=== PATIENT | female | born 1980 | race Caucasian/White ===

== ENCOUNTER 2018-09-24 20:52 | Inpatient (IN) | payer OTHER, SELFPAY | END 2018-09-28 16:40 | disposition home or self-care (01) | DRG 463 | PROVIDERS: Admitting Provider Family Medicine; Emergency Provider Emergency Medicine; Referring Provider Emergency Medicine; Visit Provider Family Medicine | DX: N39.0 Urinary tract infection, site not specified (principal); E10.22 Type 1 diabetes mellitus with diabetic chronic kidney disease; I13.0 Hypertensive heart and chronic kidney disease with heart failure and stage 1 through stage 4 chronic kidney disease, or unspecified chronic kidney disease; I50.9 Heart failure, unspecified; E10.42 Type 1 diabetes mellitus with diabetic polyneuropathy; N18.3 Chronic kidney disease, stage 3 (moderate); E10.51 Type 1 diabetes mellitus with diabetic peripheral angiopathy without gangrene; Z23 Encounter for immunization; Z79.4 Long term (current) use of insulin; M19.90 Unspecified osteoarthritis, unspecified site; I12.9 Hypertensive chronic kidney disease with stage 1 through stage 4 chronic kidney disease, or unspecified chronic kidney disease; I25.2 Old myocardial infarction; F41.9 Anxiety disorder, unspecified; F32.9 Major depressive disorder, single episode, unspecified; E28.2 Polycystic ovarian syndrome; Z89.422 Acquired absence of other left toe(s); Z79.82 Long term (current) use of aspirin; Z79.02 Long term (current) use of antithrombotics/antiplatelets; D50.9 Iron deficiency anemia, unspecified; E78.5 Hyperlipidemia, unspecified; I25.10 Atherosclerotic heart disease of native coronary artery without angina pectoris; K21.9 Gastro-esophageal reflux disease without esophagitis; G25.81 Restless legs syndrome; M54.41 Lumbago with sciatica, right side; M54.42 Lumbago with sciatica, left side; R12 Heartburn; L05.92 Pilonidal sinus without abscess; B96.20 Unspecified Escherichia coli [E. coli] as the cause of diseases classified elsewhere | CPT/HCPCS: 36415; 36430; 36569; 74176; 80048; 80053; 81001; 81025; 83036; 83540; 83550; 83690; 85025; 85027; 86850; 86900; 86901; 86920; 87077; 87081; 87086; 87088; 87186; 90471; 90686; 96361; 96365; 96374; 96375; 96376; 99285; A9270; C1751; G0008; G0378; G0379; J0696; J1815; J1885; J2270; J2405; J2550; J3010; J7030; J7050; P9016 ==

== ENCOUNTER 2019-08-18 16:39 | Inpatient (IN) | payer OTHER, SELFPAY ==
--- NOTE | ~2019-08-18 | US_ITS ---
EXAMINATION: US venous doppler [facility] DATE: 08/19/2019 09:52 INDICATION: Lower limb edema. TECHNIQUE: Grayscale ultrasound images without and with compression and Doppler ultrasound images of the bilateral lower extremity veins were obtained. COMPARISON: None. FINDINGS: The visualized portions of right common femoral vein, profunda (deep) femoral vein, femoral vein, pop liteal vein, peroneal veins, posterior tibial veins, and greater saphenous vein outflow are patent. The visualized portions of left common femoral vein, profunda femoral vein, femoral vein, popliteal v ein, peroneal veins, posterior tibial veins, and greater saphenous vein outflow are patent. IMPRESSION: 1. No deep venous thrombosis. Reviewed, dictated and finalized at location A.
[2019-08-18 17:49] VITALS: BMI 40.3
[2019-08-19] VITALS (17 sets, daily range): BP systolic 97–145; BP diastolic 67–77; PULSE 75–86; RESP 18; TEMP 36.4–36.9; O2SAT 81–100
[2019-08-19] MEDS: AMPICILLIN SODIUM/SULBACTAM 3 GM in SODIUM CHLORIDE 0.9% IV 100 ML IVPB ×4 (01:45→22:51)
[2019-08-19 04:44] LABS: Basophils Absolute Auto 0.1 K/mm3 (0.0-0.1); Basophils Percent Auto 0.9 % (0.2-1.2); Eosinophils Absolute Auto 0.3 K/mm3 (0-0.3); Eosinophils Percent Auto 2.6 % (0-4.4); Hematocrit 32.3 % (37.0-47.0); Immature Granulocyte Absolute 0.02 K/mm3 (0.00-0.031); Immature Granulocyte Percent A 0.2 % (0-0.5); Lymphocytes Absolute Auto 2.98 K/mm3 (0.9-3.2); Lymphocytes Percent Auto 31.3 % (18.3-44.2); Mean Corpuscular Hemoglobin 26.6 pg (26-34); Mean Corpuscular Volume 85.9 fl (80-100); Mean Platelet Volume 10.6 fl (7.4-10.4); Monocytes Absolute Auto 0.8 K/mm3 (0.1-0.6); Monocytes Percent Auto 8.4 % (2.6-8.5); Neutrophils Absolute Auto 5.4 K/mm3 (1.3-6.7); Neutrophils Percent Auto 56.6 % (45.5-73.1); Platelet Count Result 234 k/mm3 (150-375); Red Blood Count 3.76 M/mm3 (4.2-5.4); Red Cell Distribution Width 18.6 % (11.5-14.5); White Blood Count 9.5 K/mm3 (4.5-10.0)
[2019-08-19 04:55] LABS: Blood Urea Nitrogen 29 mg/dL (7-17); Calcium 8.1 mg/dL (8.4-10.2); Carbon Dioxide 24 mmol/L (22-30); Chloride 104 mmol/L (98-107); Estimated CRCL calculation 38 ml/min; Estimated Glomerular Filt Rate 26; Glucose 122 mg/dL (65-105); Potassium 3.8 mmol/L (3.4-5.0); Sodium 137 mmol/L (137-145)
[2019-08-19] MEDS: GABAPENTIN 100 MG CAPSULE 200 MG PO ×3 (06:39→22:58)
[2019-08-19] MEDS: CARVEDILOL 12.5 MG TABLET PO ×2 (08:50→22:59)
[2019-08-19] MEDS: metroNIDAZOLE 250 MG TABLET 500 MG PO ×2 (08:50→22:59)
[2019-08-19] MEDS: ATORVASTATIN 40 MG TABLET PO (08:51)
[2019-08-19] MEDS: ENOXAPARIN 40 MG/0.4 ML SYRINGE SUB-Q (08:51)
[2019-08-19] MEDS: FUROSEMIDE INJ 40 MG/4 ML VIAL IV PUSH ×2 (08:51→22:59)
[2019-08-19] MEDS: FLUOXETINE HCL 20 MG CAP PO ×3 (08:51→17:27)
[2019-08-19] MEDS: FERROUS SULFATE 324 MG TABLET PO (08:51)
[2019-08-19] MEDS: lamoTRIgine 25 MG TABLET PO ×2 (08:51→22:58)
[2019-08-19] MEDS: MORPHINE SULFATE 4 MG/ML INJ IV PUSH ×2 (08:56→17:32)
[2019-08-19 09:22] LABS: Glucose Point of Care 130 (65-105)
[2019-08-19 12:40] LABS: Glucose Point of Care 171 (65-105)
--- NOTE | 2019-08-19 14:56 | PM.IMPN ---
Progress Note: A&P Assessment and Plan (1) Elevated troponin: Code(s): R79.89 - Other specified abnormal findings of blood chemistry Status: Acute Assessment and Plan: Possibly secondary to elevated blood pressures, does not appear to be related to an acute ischemic event. (2) Pneumonia: Code(s): J18.9 - Pneumonia, unspecified organism Status: Acute Assessment and Plan: Patient has a cough and a wheeze chest x-ray shows pneumonia patient has been started on Unasyn and doxycycline (3) Trichomonas vaginalis (TV) infection: Code(s): A59.01 - Trichomonal vulvovaginitis Status: Acute Assessment and Plan: Patient has been treated with Flagyl patient will need to follow up with her OBGYN on discharge, patient had a recent endometrial ablation, under (4) Pelvic inflammatory disease (PID): Code(s): N73.9 - Female pelvic inflammatory disease, unspecified Status: Acute Assessment and Plan: Improved after treatment with Flagyl patient will follow up with her OBGYN and on discharge. Patient has been recently admitted in July for heavy vaginal bleeding and severe anemia, previous D&C patient had endometrial ablation her OBGYN also thought to have pelvic inflammatory disease at that time. (5) Hypertension, uncontrolled: Code(s): I10 - Essential (primary) hypertension Status: Acute Assessment and Plan: Blood pressure is improved for high 140/70. Pt has Iv lasix scheduled. Patient have echocardiogram. Patient is known to have systolic dysfunction with ejection fraction of 50% on a recent echo from 11/2017. Unsure if patient has been compliant to her medications as she has been on well with abdominal discomfort. Patient is on Coreg for congestive heart failure systolic in nature. ProBNP elevated at 6660. Continue to monitor kidney function and proBNP. (6) Dental abscess: Code(s): K04.7 - Periapical abscess without sinus Status: Acute Assessment and Plan: Preferred is on IV Unasyn and doxycycline, patient will need to follow with the dental practice (7) Anxiety and depression: Code(s): F41.9 - Anxiety disorder, unspecified; F32.9 - Major depressive disorder, single episode, unspecified Status: Acute Assessment and Plan: Patient is on fluoxetine Gabapentin lamotrigine, and quetiapine anxiety and depression, and clonazepam p.r.n. (8) Diabetes: Code(s): E11.9 - Type 2 diabetes mellitus without complications Status: Acute Assessment and Plan: Patient is on insulin 3 times a day with meals. Sugars are running around 173 Time Spent With Patient Time: Total time spent is greater than 50% in coordination of care (as documented) at patient's floor/unit and/or counseling patient: Time with patient: 15 - 25 minutes Subjective Interval history: 39-year-old female admitted with abdominal pain. Patient had gone to urgent care, advised to come into the hospital. Patient has been run down for the past 1 week. Complaints of abdominal pain dental abscess and feeling unwell. Patient was found to have a pelvic inflammatory disease infection and Trichomonas also pneumonia and dental abscess. Patient's blood pressures were also running high. Patient states she sees OBGYN Dr. Tello. Patient is also waiting for a dental appointment. She had been unwell fatigued and her sister wanted her to go urgent care. Patient had a recent endometrial ablation under OBGYN. Review of Systems Review of Systems: All systems reviewed & are unremarkable except as noted in HPI and below Constitutional: Constitutional: Reports body ache(s), Reports fatigue, Reports lethargy and Reports weakness Respiratory: Respiratory: Reports cough and Reports wheezing Gastrointestinal: Gastrointestinal: Reports abdominal pain Genitourinary: Genitourinary: Reports vaginal discharge Neurologic: Denies confusion, Denies vertigo, De
[2019-08-19 15:57] LABS: Hematocrit 35.2 % (37.0-47.0); Hemoglobin 10.8 g/dL (12.0-15.0); Mean Corpuscular HGB Conc 30.7 g/dl (32-36); Mean Corpuscular Hemoglobin 25.9 pg (26-34); Mean Corpuscular Volume 84.4 fl (80-100); Mean Platelet Volume 10.4 fl (7.4-10.4); Platelet Count Result 275 k/mm3 (150-375); Red Blood Count 4.17 M/mm3 (4.2-5.4); Red Cell Distribution Width 18.4 % (11.5-14.5)
[2019-08-19 18:04] LABS: Glucose Point of Care 111 (65-105)
[2019-08-19 21:49] LABS: Glucose Point of Care 113 (65-105)
[2019-08-19] MEDS: QUEtiapine FUMARATE 25 MG TABLET PO (23:35)
[2019-08-20] VITALS (8 sets, daily range): BP systolic 130–132; BP diastolic 71–75; PULSE 75–81; RESP 12–16; TEMP 36.4–36.8; O2SAT 96–97
[2019-08-20 05:28] LABS: Blood Urea Nitrogen 38 mg/dL (7-17); Calcium 8.3 mg/dL (8.4-10.2); Carbon Dioxide 26 mmol/L (22-30); Chloride 100 mmol/L (98-107); Estimated CRCL calculation 31 ml/min; Estimated Glomerular Filt Rate 20; Glucose 110 mg/dL (65-105); Potassium 3.7 mmol/L (3.4-5.0); Sodium 135 mmol/L (137-145)
[2019-08-20] MEDS: AMPICILLIN SODIUM/SULBACTAM 3 GM in SODIUM CHLORIDE 0.9% IV 100 ML IVPB (06:50)
[2019-08-20] MEDS: GABAPENTIN 100 MG CAPSULE 200 MG PO (06:54)
[2019-08-20] MEDS: FLUOXETINE HCL 20 MG CAP PO (08:49)
[2019-08-20] MEDS: FUROSEMIDE INJ 40 MG/4 ML VIAL IV PUSH (08:49)
[2019-08-20] MEDS: CARVEDILOL 12.5 MG TABLET PO (08:50)
[2019-08-20] MEDS: lamoTRIgine 25 MG TABLET PO (08:50)
[2019-08-20] MEDS: ATORVASTATIN 40 MG TABLET PO (08:51)
[2019-08-20] MEDS: FERROUS SULFATE 324 MG TABLET PO (08:51)
[2019-08-20] MEDS: ENOXAPARIN 40 MG/0.4 ML SYRINGE SUB-Q (08:51)
[2019-08-20] MEDS: MORPHINE SULFATE 4 MG/ML INJ IV PUSH (08:52)
[2019-08-20 09:00] LABS: Glucose Point of Care 137 (65-105)
[2019-08-20] MEDS: metroNIDAZOLE 250 MG TABLET 500 MG PO (09:35)
--- NOTE | 2019-08-20 09:56 | PM.DS ---
DS: Diagnosis Admitting Diagnosis Admitting Diagnosis: RLL pneumonia, dental abscess, PID Discharge Diagnosis (1) Pneumonia: Code(s): J18.9 - Pneumonia, unspecified organism Status: Acute Assessment and Plan: Much improved with doxy and unazyn iv. (2) Trichomonas vaginalis (TV) infection: Code(s): A59.01 - Trichomonal vulvovaginitis Status: Acute Assessment and Plan: To complete course of metronidazole. (3) Pelvic inflammatory disease (PID): Code(s): N73.9 - Female pelvic inflammatory disease, unspecified Status: Acute Assessment and Plan: Pelvic pain improved. To complete 10 day course of doxycycline and unasyn. 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 (4) Hypertension, uncontrolled: Code(s): I10 - Essential (primary) hypertension Status: Acute Assessment and Plan: Continue carvedilol. (5) Diabetes: Code(s): E11.9 - Type 2 diabetes mellitus without complications Status: Acute Assessment and Plan: Follow healthy diet. (6) Dental abscess: Code(s): K04.7 - Periapical abscess without sinus Status: Acute Assessment and Plan: complete Augmentin and see dentist. (7) Cardiomyopathy: Code(s): I42.9 - Cardiomyopathy, unspecified Status: Acute Assessment and Plan: No sign of decompensation. Continue carvedilol and low salt diet. DS: Summary Time Spent with Patient Time attestation: Total time spent providing and/or coordinating discharge services: 40 min Exam Const: General: cooperative Orientation/consciousness: oriented to person, oriented to place and oriented to time HENMT: Ears: external ears normal General nose exam: external nose normal Face and sinus: face symmetric Mouth: Yes oral mucosae normal, Yes lip normal and Yes tongue normal Throat: posterior oropharynx normal Eyes: Alignment and Position: alignment normal and position normal Periorbital: periorbital findings normal Eyelids: eyelids normal Conjunctivae: conjunctivae normal Sclera: sclerae normal Pupils: PERRL EOM: EOM intact bilaterally Neck: Neck: normal visual inspection and no lymphadenopathy Thyroid: thyroid normal Chest: Chest palpation & inspection: normal inspection of the chest Resp: Effort & Inspection: normal respiratory effort and able to speak in complete sentences Auscultation: clear to auscultation bilaterally Cardio: Jugular venous distension: no JVD Rate: regular rate Rhythm: regular rhythm Heart sounds: S1 normal and no murmurs Bruits: no abdominal aortic bruits and no renal bruits Peripheral pulses: dorsalis pedis pulses present GI: Palpation (GI): No abdominal tenderness, No abdominal aortic bruit, No hepatosplenomegaly and No mass Auscultation: normal bowel sounds : General: Yes bladder normal to palpation Bimanual exam- vagina & uterus: bladder normal to palpation Neuro: General: oriented to person, oriented to place, oriented to time, moves all extremities, no focal motor deficits, CN's II-XI intact bilaterally and deep tendon reflexes 2+ bilaterally Cranial nerves: Yes PERRL Speech: normal speech and No speech abnormal Motor exam (neuro): strength 5/5 throughout Psych: Affect: normal affect Attitude: cooperative DS: Data Data Completed and Pending Labs on day of discharge: Labs from last 24 hours 08/20/19 08/20/19 08/19/19 07:59 04:42 21:40 WBC RBC Hgb Hct MCV MCH MCHC RDW Plt Count MPV Sodium 135 L Potassium 3.7 Chloride 100 Carbon Dioxide 26 BUN 38 H Creatinine 2.60 H Estim Creat Clear Calc 31 Estimated GFR 20 L Glucose 110 H POC Capillary Glucose 137 H 113 H Calcium 8.3 L 08/19/19 08/19/19 08/19/19 17:34 15:43 11:59 WBC 12.0 H RBC 4.17 L Hgb 10.8 L Hct 35.2 L MCV 84.4 MCH 25.9 L MCHC 30.7 L RDW 18.4 H Plt Count 275 MPV 10.4 Sodium Potassium Chlori
[2019-08-20 12:34] LABS: Glucose Point of Care 185 (65-105)
== END 2019-08-20 13:00 | disposition home or self-care (01) | DRG 139 ==
PROVIDERS: Internal Medicine; Admitting Provider Internal Medicine; Emergency Provider Emergency Medicine; PCP Family Medicine; Visit Provider Family Medicine
DX: J18.9 Pneumonia, unspecified organism (principal); A59.01 Trichomonal vulvovaginitis; N73.9 Female pelvic inflammatory disease, unspecified; K04.7 Periapical abscess without sinus; I42.9 Cardiomyopathy, unspecified; F41.8 Other specified anxiety disorders; I13.0 Hypertensive heart and chronic kidney disease with heart failure and stage 1 through stage 4 chronic kidney disease, or unspecified chronic kidney disease; E11.22 Type 2 diabetes mellitus with diabetic chronic kidney disease; N18.3 Chronic kidney disease, stage 3 (moderate); I50.22 Chronic systolic (congestive) heart failure; E11.65 Type 2 diabetes mellitus with hyperglycemia; I25.10 Atherosclerotic heart disease of native coronary artery without angina pectoris; I16.1 Hypertensive emergency; Z89.422 Acquired absence of other left toe(s); I25.2 Old myocardial infarction; Z95.5 Presence of coronary angioplasty implant and graft; G47.33 Obstructive sleep apnea (adult) (pediatric); K21.9 Gastro-esophageal reflux disease without esophagitis; M19.90 Unspecified osteoarthritis, unspecified site; Z91.5 Personal history of self-harm; Z98.41 Cataract extraction status, right eye; Z98.42 Cataract extraction status, left eye; E28.2 Polycystic ovarian syndrome; K58.2 Mixed irritable bowel syndrome; G43.909 Migraine, unspecified, not intractable, without status migrainosus; F19.11 Other psychoactive substance abuse, in remission; E11.42 Type 2 diabetes mellitus with diabetic polyneuropathy; E11.51 Type 2 diabetes mellitus with diabetic peripheral angiopathy without gangrene
CPT/HCPCS: 36415; 71046; 74177; 80048; 80053; 81001; 81025; 83690; 83880; 84484; 85025; 85027; 85380; 87070; 87077; 87081; 87490; 87590; 87808; 93005; 93970; 96361; 96365; 96367; 96375; 96376; 99285; A9270; G0365; J0131; J0295; J1650; J1940; J2270; J2405; J7030; Q9967

== ENCOUNTER 2019-11-04 23:51 | Inpatient (IN) | payer OTHER, SELFPAY ==
--- NOTE | ~2019-11-04 | CT_ITS ---
EXAMINATION: CT abdomen pelvis wo con DATE: 11/05/2019 02:38 INDICATION: Mid abdominal pain. Vomiting. TECHNIQUE: Computed tomography (CT) of the abdomen and pelvis was performed without intravenous contr ast. Automated exposure control and iterative reconstruction technique were employed. The dose-length product was 1526.95 mGy-cm. COMPARISON: CT abdomen and pelvis 08/18/2019, pelvis ultrasound 12/13/2017 FINDINGS: The visualized portions of the lung bases demonstrate smooth septal thickening, consistent with mild pulmonary edema. There are small pleural effusions. There is left atrial enlargement of the heart. No pericardial effusion. The liver, gallbladder, spleen, pancreas, adrenal glands, and kidney s are normal. There is no urolithiasis. The appendix is normal. There are no dilated loops of bowel. There is mild wall thickening of the sigmoid colon. There are no pathologically enlarged lymph nodes. A chronic calcified mass in right abdomen is likely old fat necrosis. There is asymmetric enlargemen t of the right ovary. There is no free intraperitoneal fluid. There is moderate thoracic spondylosis and mild lumbar spondylosis. IMPRESSION: 1. Mild wall thickening of the sigmoid colon, which may be colitis. 2. Mild pulmonary edema. 3. Small pleural effusions. 4. Asymmetric enlargement of the right ovary, most likely from a hemorrhagic cyst. Consider pelvis ul trasound. Reviewed, dictated and finalized at location A. K MAINTAINER IMPRESSION: 1. Mild wall thickening of the sigmoid colon, which may be colitis. 2. Mild pulmonary edema. 3. Small pleural effusions. 4. Asymmetric enlargement of the right ovary, most likely from a hemorrhagic cy st. Consider pelvis ultrasound.
--- NOTE | ~2019-11-04 | US_ITS ---
EXAMINATION: US right upper quadrant DATE: 11/07/2019 10:23 INDICATION: Right upper quadrant pain TECHNIQUE: Multiple grayscale and Doppler ultrasound images of the abdomen were obtained. COMPARISON: CT, 11/05/2019 FINDINGS: The head and and body of the pancreas are normal. The pancreatic tail is obscured by bowel gas. The liver is normal with normal echogenicity and echotexture. No surface nodularity. Normal hepa topetal flow in the main portal vein. There is a small amount of stones or sludge in the gallbladder. There is mild thickening of the gallbladder wall. A small amount of pericholecystic fluid is noted. The normal common bile duct measures 4 mm. There was no sonographic Lopes sign. IMPRESSION: 1. Sonographic findings suggestive of cholecystitis. Consider nuclear hepatobiliary scan. Reviewed, dictated and finalized at location A. GER [employer] IMPRESSION: 1. Sonographic findings suggestive of cholecystitis. Consider nuclear hepatobil iary scan.
--- NOTE | ~2019-11-04 | NM_ITS ---
EXAMINATION: NM hepatobiliary w pharm DATE: 11/08/2019 09:53 INDICATION: Abnormal liver function tests, nausea and vomiting. Ultrasound suspicious for cholecystit is. COMPARISON: None. TECHNIQUE: 4.8 mCi Tc-99m mebrofenin (Choletec) was administered intravenously. Scintigraphic images of the abdomen were obtained for one hour. 3 mcg sincalide (Kinevac) was administered by slow intrav enous infusion, and imaging was continued for 30 minutes. Gallbladder ejection fraction was calculate d by the technologist. FINDINGS: There is normal clearance of radiotracer from the blood pool. There is homogeneous tracer uptake by t he liver. Activity progresses initially to the bowel. There is accumulation of activity within the d ecompressed gallbladder beginning 18 minutes following morphine administration. There is diffuse ela yed clearance of hepatic activity with still significant hepatic activity evident at 90 minutes. IMPRESSION: 1. Diffuse delayed hepatic clearance of activity without evident biliary ductal obstruction suggesti ng hepatic dysfunction. 2. Activity seen within the gallbladder following morphine administration which along with the absenc e of evident cholelithiasis or sonographic Lopes's sign, all argues against acute cholecystitis. The pericholecystic fluid versus gallbladder wall thickening is likely related to liver disease with add itional differential including heart disease, renal failure or other generalized edema forming states . Reviewed, dictated and finalized at location A. TING MACHINE OPERATOR IMPRESSION: 1. Diffuse delayed hepatic clearance of activity without evident biliary ducta l obstruction suggesting hepatic dysfunction. 2. Activity seen within the gallbladder following morphine administration which along with the absence of evident cholelithiasis or sonographic Lopes's sign, all argues against acute cholecystitis. The pericholecystic fluid versus gallb ladder wall thickening is likely related to liver disease with additional diffe rential including heart disease, renal failure or other generalized edema formi ng states.
[2019-11-04 23:58] VITALS: BP 182/132; PULSE 99; RESP 20; TEMP 36.8; O2SAT 94
[2019-11-05] VITALS (15 sets, daily range): BP systolic 123–183; BP diastolic 82–109; PULSE 82–114; RESP 16–21; TEMP 35.7–36.8; O2SAT 92–100
--- NOTE | 2019-11-05 00:14 | ECG_ITS ---
Measurements Intervals [place] Rate: 95 P: 77 UT: 175 QRS: -64 QRSD: 130 T: 85 QT: 384 QTc: 484 Interpretive Statements SINUS RHYTHM CANNOT RULE OUT SEPTAL INFARCT, AGE INDETERMINATE LEFT ANTERIOR FASCICULAR BLOCK BORDERLINE ST-T WAVE ABNORMALITY- LATERAL LEADS BASELINE ARTIFACT- I ABNORMAL ECG Electronically Signed On 11-05-2019 8:27:58 SUPERVISOR [employer]LLING [employer]OTING by Xavi Harding D.O.
--- NOTE | 2019-11-05 00:18 | ED.ABDPAIN ---
HPI - Abdominal Pain General Chief Complaint: Abdominal Pain Stated Complaint: ABD NV Time Seen by Provider: 11/05/19 00:18 Source: patient Mode of arrival: EMS Limitations: no limitations History of Present Illness HPI narrative: A 39 y/o female, with a PMHx of gastritis, presents to the ED, via EMS, with c/o diffuse ABD pain today. Pt states that she has been nauseated in the mornings for the past month and normally feels better after she vomits. Pt does not have regular periods due to her PSHx of an ablation. She reports N/V, diarrhea x7, sweats, and chills. Onset (ago): hour(s) Location: diffuse Associated symptoms: nausea, vomiting, diarrhea, chills and other (sweats) Related Data Home Medications Medication Instructions Recorded Confirmed atorvastatin [Lipitor] 40 mg PO DAILY 08/18/19 11/05/19 carvedilol 12.5 mg PO BID 08/18/19 11/05/19 clonazepam 1 mg PO BID PRN 08/18/19 11/05/19 ferrous sulfate 324 mg PO DAILY 08/18/19 11/05/19 fluoxetine 20 mg PO TID 08/18/19 11/05/19 gabapentin 200 mg PO TID 08/18/19 11/05/19 lamotrigine 25 mg PO BID 08/18/19 11/05/19 quetiapine 25 mg PO HS 08/18/19 11/05/19 Allergies Allergy/AdvReac Type Severity Reaction Status Date / Time latex Allergy Mild Unknown Verified 07/21/19 08:51 adhesive tape AdvReac Other Verified 08/18/19 17:46 Review of Systems Review of Systems: All systems reviewed & are unremarkable except as noted in HPI and below Constitutional: Constitutional: Reports chills Comments: Reports: sweats Gastrointestinal: Gastrointestinal: Reports abdominal pain (diffuse), Reports diarrhea (x7), Reports nausea and Reports vomiting PMFSH Past Medical History Medical History (Updated 11/05/19 @ 06:44 by Lisa Christiansen MD) Amputation toe left pinky toe Anemia Broken teeth CAD (coronary artery disease) Cardiomyopathy CHF (congestive heart failure) Depression with anxiety DVT (deep venous thrombosis) Fibroids Foot fracture, left Gastritis GERD (gastroesophageal reflux disease) GI bleed Heart attack x2 History of angina History of blood transfusion HTN (hypertension) Hyperlipidemia IDDM (insulin dependent diabetes mellitus) Migraine MRSA (methicillin resistant staph aureus) culture positive Nearsightedness Osteoarthritis PCOS (polycystic ovarian syndrome) Peripheral neuropathy PID (acute pelvic inflammatory disease) PVD (peripheral vascular disease) Sleep apnea Stage 3 chronic kidney disease UTI (urinary tract infection) Yeast infection Surgical History Surgical History H/O bilateral cataract extraction H/O section H/O dilation and curettage H/O hand surgery left tendon repair H/O tubal ligation History of cardiac cath 2 stents Hx of angioplasty Social History Social History (Updated 11/05/19 @ 00:46 by Isa Whitman) Smoking status: Light tobacco smoker Alcohol intake: never Substance use: current Substance use type: marijuana Gender identity (if verbalized by the patient): Female Spiritual care concerns: No Agree to blood products: Yes Comments PSHx: ablation PCP: Dr. Martinez Course Reevaluation(s) Reevaluation #1: Patient is still in severe pain with nausea. Patient will be admitted for pain control. No definite bacterial infection so no antibiotics. Date: 11/05/19 Time: 03:36 Consultations Consultation #1: I Discussed case with Dr. Garza who agrees to admit for observation. Date: 11/05/19 Time: 03:50 Vital Signs Vital signs: Vital Signs Temperature 98.2 F 11/04/19 23:58 Pulse Rate 99 11/04/19 23:58 Respiratory Rate 11/04/19 23:58 Blood Pressure 182/132 H 11/04/19 23:58 Pulse Oximetry 94 11/04/19 23:58 Temperature 97.3 F L 11/05/19 04:22 Pulse Rate 82 11/05/19 06:17 Respiratory Rate 18 11/05/19 06:17 Blood Pressure 183/109 H 11/05/19 04:22 Pulse Oximetry 97 11/05/19 04:22 MDM - Abdominal Pain Lab
[2019-11-05] MEDS: ONDANSETRON INJ 4 MG/2 ML VIAL IV PUSH ×4 (01:16→13:49)
[2019-11-05] MEDS: SODIUM CHLORIDE 0.9% IV 1,000 ML 999 ML IV CONT (01:16)
[2019-11-05 01:17] LABS: Basophils Absolute Auto 0.2 K/mm3 (0.0-0.1); Basophils Percent Auto 0.7 % (0.2-1.2); Eosinophils Percent Auto 0.2 % (0-4.4); Hematocrit 45.7 % (37.0-47.0); Hemoglobin 14.1 g/dL (12.0-15.0); Immature Granulocyte Percent A 0.5 % (0-0.5); Lymphocytes Absolute Auto 2.28 K/mm3 (0.9-3.2); Lymphocytes Percent Auto 11.1 % (18.3-44.2); Mean Corpuscular HGB Conc 30.9 g/dl (32-36); Mean Corpuscular Hemoglobin 26.4 pg (26-34); Mean Corpuscular Volume 85.4 fl (80-100); Mean Platelet Volume 11.4 fl (7.4-10.4); Monocytes Absolute Auto 0.5 K/mm3 (0.1-0.6); Monocytes Percent Auto 2.6 % (2.6-8.5); Neutrophils Absolute Auto 17.5 K/mm3 (1.3-6.7); Neutrophils Percent Auto 84.9 % (45.5-73.1); Platelet Count Result 314 k/mm3 (150-375); Red Blood Count 5.35 M/mm3 (4.2-5.4); Red Cell Distribution Width 14.9 % (11.5-14.5); White Blood Count 20.6 K/mm3 (4.5-10.0)
[2019-11-05] MEDS: HYDROMORPHONE HCL 1 MG/ML INJ 0.5 MG IV PUSH (01:17)
[2019-11-05 01:27] LABS: INR 0.9; Prothrombin Time 11.6 Seconds (11.1-14.7)
[2019-11-05 01:28] LABS: Partial Thromboplastin Time 25.4 SECONDS (22.3-36.8)
[2019-11-05 01:29] LABS: Alanine Aminotransferase 24 U/L (4-35); Albumin Level 4.7 g/dL (3.5-5.1); Alkaline Phosphatase 176 U/L (38-126); Aspartate Amino Transferase 30 U/L (14-36); Bilirubin,Total 0.8 mg/dL (0.2-1.3); Blood Urea Nitrogen 28 mg/dL (7-17); Calcium 9.6 mg/dL (8.4-10.2); Carbon Dioxide 25 mmol/L (22-30); Chloride 97 mmol/L (98-107); Estimated CRCL calculation 40 ml/min; Estimated Glomerular Filt Rate 27; Glucose 256 mg/dL (65-105); Lipase 47 U/L (23-300); Potassium 3.6 mmol/L (3.4-5.0); Sodium 137 mmol/L (137-145)
[2019-11-05 01:30] LABS: Lactic Acid Reflex 1.8 mmol/L (0.7-2.1)
[2019-11-05 01:32] LABS: Glucose Point of Care 243 (65-105)
[2019-11-05 03:04] LABS: Add Urine Microscopic? YES; Appearance Urine Clear (Clear); Bacteria Urine Trace /hpf; Bilirubin Urine Negative (Negative); Blood Urine 1+ (Negative); Color Urine Straw (Yellow); Glucose Urine UA 3+ mg/dL (Negative); Ketones Urine 1+ mg/dL (Negative); Leukocyte Esterase Ur Negative LEU/UL (Negative); Mucus Urine Rare /lpf; Nitrate Urine Negative (Negative); Protein Urine 3+ mg/dL (Negative); Specific Grav Ur 1.012 (1.001-1.035); Squamous Epithelial Cell Urine Many /hpf (Few); Urobilinogen Urine Negative mg/dL (<2.0); WBC Urine 0-3 /hpf
[2019-11-05] MEDS: HYDROMORPHONE HCL 1 MG/ML INJ IV PUSH ×4 (03:44→20:47)
--- NOTE | 2019-11-05 04:21 | PC.NURSE ---
Patient's O2 saturations dropped to 82%-88% on RA. Patient placed on 3L O2, O2 saturations 96% at this time.
[2019-11-05] MEDS: hydrALAZINE HCL 20 MG/ML VIAL IV PUSH (04:48)
--- NOTE | 2019-11-05 05:49 | PC.NURSE ---
This patient, Michelle Rhoades, was admitted to Medical Room 258-01. Patient/family oriented to hospital policies and general routines including ID bracelet, bed and alarms, visiting hours, pain management, procedures, bathroom and other care routines, personal items, smoking policy, room service/diet, and visiting hours. Valuables list has been completed. Information on how to activate the Rapid Response Team has been discussed. Patient/Family are encouraged to report perceived risks to care and to ask questions if they do not understand what they are told or what they should do. Pt is very anxious, restless and tearfull.
[2019-11-05 10:38] LABS: Basophils Percent Auto 0.3 % (0.2-1.2); Hematocrit 42.3 % (37.0-47.0); Hemoglobin 12.9 g/dL (12.0-15.0); Immature Granulocyte Absolute 0.09 K/mm3 (0.00-0.031); Immature Granulocyte Percent A 0.6 % (0-0.5); Lymphocytes Absolute Auto 1.14 K/mm3 (0.9-3.2); Lymphocytes Percent Auto 7.7 % (18.3-44.2); Mean Corpuscular HGB Conc 30.5 g/dl (32-36); Mean Corpuscular Hemoglobin 26.2 pg (26-34); Mean Platelet Volume 11.4 fl (7.4-10.4); Monocytes Absolute Auto 0.4 K/mm3 (0.1-0.6); Monocytes Percent Auto 2.5 % (2.6-8.5); Neutrophils Absolute Auto 13.2 K/mm3 (1.3-6.7); Neutrophils Percent Auto 88.9 % (45.5-73.1); Platelet Count Result 249 k/mm3 (150-375); Red Blood Count 4.92 M/mm3 (4.2-5.4); Red Cell Distribution Width 14.9 % (11.5-14.5); White Blood Count 14.8 K/mm3 (4.5-10.0)
[2019-11-05 10:51] LABS: Alanine Aminotransferase 20 U/L (4-35); Albumin Level 3.7 g/dL (3.5-5.1); Alkaline Phosphatase 128 U/L (38-126); Aspartate Amino Transferase 29 U/L (14-36); Bilirubin,Total 0.4 mg/dL (0.2-1.3); Blood Urea Nitrogen 29 mg/dL (7-17); Calcium 8.7 mg/dL (8.4-10.2); Carbon Dioxide 23 mmol/L (22-30); Chloride 101 mmol/L (98-107); Estimated CRCL calculation 0 ml/min; Estimated Glomerular Filt Rate 29; Glucose 274 mg/dL (65-105); Magnesium 1.9 mg/dL (1.6-2.3); Potassium 4.6 mmol/L (3.4-5.0); Sodium 137 mmol/L (137-145)
[2019-11-05] MEDS: PROMETHAZINE HCL 25 MG/ML AMPUL 12.5 MG IV PUSH (11:12)
[2019-11-05] MEDS: SODIUM CHLORIDE 0.9% IV 1,000 ML 100 ML IV CONT ×2 (11:19→20:44)
[2019-11-05] MEDS: PANTOPRAZOLE SODIUM IV 40 MG VIAL IV PUSH ×2 (11:42→20:44)
[2019-11-05] MEDS: CLONAZEPAM 0.5 MG TAB 1 MG PO (11:49)
--- NOTE | 2019-11-05 11:53 | PC.NURSE ---
Upon arrival to patients room, she is resting comfortably. Aroused her to administer Protonix IVP. Patient stated her nausea was improved after receiving IVP Phenergan. Asked patient when leaving room if there was anything else I could get her, she stated as soon as I am able to have the IV dilaudid, I want it. However, she appears to be resting comfortably and even stated she would like us to let her rest and not bother her. No apparent distress at this time. Will continue to monitor her.
--- NOTE | 2019-11-05 12:50 | PM.IMHP ---
H&P: HPI History of Present Illness Chief complaint: Intractable abdominal pain, nausea, Narrative: Date of visit 11/05/2019. 1015. chau Rhoades is a 39 year old white female type 2 diabetic with known peripheral vascular and coronary disease admitted with recurrent nausea and vomiting abdominal discomfort. She relates that been nauseated with vomiting in the a.m. for Sineff to 3-4 weeks and usually feel somewhat better afterwards. Last couple days had marked abdominal discomfort which prompted her visit to the emergency room. She states sometimes her emesis has blood tension but denies any melena hematochezia although has had some watery stools last couple days also. Never added history of peptic disease, EGD, or gastroparesis to her knowledge. And no family history of peptic disease. CT in ER showed a looked to be possible colitis but otherwise nonspecific with old adnexal lesion. She does relate that she has not lost any weight over this period of time Review of Systems Review of Systems: Narrative: Constitutional appetite has been good and weight has been stable during the present and and most recent past EYE no double vision or scotoma Mouth normal No wheezing her history of pulmonary disease CV no chest pain or palpitation. 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 therapy and no periods for 4-5 months and denies any vaginal discharge Muscle skeletal the diffuse joint discomfort with arthritis IE osteoarthritis Integument no skin breakdown rashes Neuro psych she has history of bipolar disorder but appears to be well adjusted present time appropriate, no history of seizures The remainder review of systems if not documented here were evaluated found to be negative [facility] Past Medical History Medical History (Updated 11/05/19 @ 13:02 by Orlando Ferris MD) Amputation toe left pinky toe Anemia Broken teeth CAD (coronary artery disease) Cardiomyopathy CHF (congestive heart failure) Depression with anxiety DVT (deep venous thrombosis) Fibroids Foot fracture, left Gastritis GERD (gastroesophageal reflux disease) GI bleed Heart attack x2 History of angina History of blood transfusion HTN (hypertension) Hyperlipidemia IDDM (insulin dependent diabetes mellitus) Migraine MRSA (methicillin resistant staph aureus) culture positive Nearsightedness Osteoarthritis PCOS (polycystic ovarian syndrome) Peripheral neuropathy PID (acute pelvic inflammatory disease) PVD (peripheral vascular disease) Sleep apnea Stage 3 chronic kidney disease UTI (urinary tract infection) Yeast infection Surgical History Surgical History H/O bilateral cataract extraction H/O section H/O dilation and curettage H/O hand surgery left tendon repair H/O tubal ligation History of cardiac cath 2 stents Hx of angioplasty Social History Social History (Updated 11/05/19 @ 00:46 by Isa Whitman) Smoking status: Light tobacco smoker Alcohol intake: never Substance use: current Substance use type: marijuana Gender identity (if verbalized by the patient): Female Spiritual care concerns: No Agree to blood products: Yes Meds Home Medications and Allergies Home Medications Medication Instructions Recorded Confirmed Type atorvastatin [Lipitor] 40 mg PO DAILY 08/18/19 11/05/19 History carvedilol 12.5 mg PO BID 08/18/19 11/05/19 History clonazepam 1 mg PO BID PRN 08/18/19 11/05/19 History ferrous sulfate 324 mg PO DAILY 08/18/19 11/05/19 History fluoxetine 20 mg PO TID 08/18/19 11/05/19 History gabapentin 200 mg PO TID 08/18/19 11/05/19 History lamotrigine 25 mg PO BID 08/18/19 11/05/19 History quetiapine 25 mg PO HS 08/18/19 11/05/19 History amoxicillin-pot clavulanate 1 tablet PO Q12H #16 tablet 08/20/19 11/05/19 Rx doxycycline hyclate 100 mg PO BID #12 tablet 08/20/19 11/05/19 Rx
[2019-11-05] MEDS: FLUOXETINE HCL 20 MG CAP PO ×2 (13:46→16:33)
--- NOTE | 2019-11-05 14:17 | PC.NURSE ---
Patient oxygen saturation 73% on RA. She had just received Dilaudid 1mg IVP and was currently sleeping. Applied oxygen at 3L NC and patient increased sats to 87%. Then increased oxygen to 4L NC and saturation improved to 93%. Will continue to monitor. She normally wears CPAP at night. Will notify Dr. Ferris.
[2019-11-05] MEDS: carvediloL 12.5 MG TABLET PO (16:33)
[2019-11-05] MEDS: lamoTRIgine 25 MG TABLET PO (16:33)
[2019-11-05] MEDS: QUEtiapine FUMARATE 25 MG TABLET PO (20:44)
[2019-11-06] VITALS (9 sets, daily range): BP systolic 118–142; BP diastolic 54–91; PULSE 51–99; RESP 16–18; TEMP 36.2–36.6; O2SAT 90–99
[2019-11-06] MEDS: ONDANSETRON INJ 4 MG/2 ML VIAL IV PUSH ×3 (02:24→13:23)
[2019-11-06] MEDS: HYDROMORPHONE HCL 1 MG/ML INJ IV PUSH ×2 (02:28→08:45)
[2019-11-06 06:05] LABS: Basophils Percent Auto 0.2 % (0.2-1.2); Eosinophils Percent Auto 0.1 % (0-4.4); Hematocrit 38.2 % (37.0-47.0); Hemoglobin 11.4 g/dL (12.0-15.0); Immature Granulocyte Absolute 0.13 K/mm3 (0.00-0.031); Immature Granulocyte Percent A 0.7 % (0-0.5); Lymphocytes Absolute Auto 1.98 K/mm3 (0.9-3.2); Lymphocytes Percent Auto 10.7 % (18.3-44.2); Mean Corpuscular HGB Conc 29.8 g/dl (32-36); Mean Corpuscular Hemoglobin 26.3 pg (26-34); Mean Platelet Volume 12.1 fl (7.4-10.4); Monocytes Absolute Auto 1.2 K/mm3 (0.1-0.6); Monocytes Percent Auto 6.3 % (2.6-8.5); Neutrophils Absolute Auto 15.2 K/mm3 (1.3-6.7); Platelet Count Result 246 k/mm3 (150-375); Red Blood Count 4.34 M/mm3 (4.2-5.4); Red Cell Distribution Width 15.3 % (11.5-14.5); White Blood Count 18.5 K/mm3 (4.5-10.0)
[2019-11-06 06:21] LABS: Alanine Aminotransferase 18 U/L (4-35); Albumin Level 3.4 g/dL (3.5-5.1); Alkaline Phosphatase 101 U/L (38-126); Aspartate Amino Transferase 53 U/L (14-36); Bilirubin,Total 0.6 mg/dL (0.2-1.3); Blood Urea Nitrogen 34 mg/dL (7-17); Calcium 8.4 mg/dL (8.4-10.2); Carbon Dioxide 24 mmol/L (22-30); Chloride 105 mmol/L (98-107); Estimated CRCL calculation 0 ml/min; Estimated Glomerular Filt Rate 23; Glucose 175 mg/dL (65-105); Potassium 4.3 mmol/L (3.4-5.0); Sodium 138 mmol/L (137-145)
[2019-11-06 07:43] LABS: Hypochromasia 1+ (NORMAL); Platelet Estimate Adequate (Adequate)
[2019-11-06 08:29] LABS: Glucose Point of Care 163 (65-105)
[2019-11-06] MEDS: SODIUM CHLORIDE 0.9% IV 1,000 ML 100 ML IV CONT (08:45)
[2019-11-06] MEDS: ATORVASTATIN 40 MG TABLET PO (09:11)
[2019-11-06] MEDS: carvediloL 12.5 MG TABLET PO ×2 (09:11→17:24)
[2019-11-06] MEDS: FLUOXETINE HCL 20 MG CAP PO ×3 (09:11→17:24)
[2019-11-06] MEDS: CLOPIDOGREL BISULFATE 75 MG TABLET PO (09:11)
[2019-11-06] MEDS: ASPIRIN 81 MG ENTERIC TABLET PO (09:11)
[2019-11-06] MEDS: PANTOPRAZOLE SODIUM IV 40 MG VIAL IV PUSH ×2 (09:12→21:09)
[2019-11-06] MEDS: lamoTRIgine 25 MG TABLET PO ×2 (09:12→17:24)
[2019-11-06] MEDS: PROCHLORPERAZINE EDISYLATE 10 MG/2 ML VIAL IV PUSH ×2 (10:03→17:22)
[2019-11-06 11:38] LABS: Glucose Point of Care 191 (65-105)
--- NOTE | 2019-11-06 11:50 | PM.IMPN ---
Progress Note: A&P Assessment and Plan (1) Gastroenteritis: Code(s): K52.9 - Noninfective gastroenteritis and colitis, unspecified Status: Acute Assessment and Plan: Could be simple gastroenteritis, but with her 3-4 week history could be peptic disease, gastric outlet obstruction, or even gastroparesis. After hydration and PPI, she is still nauseated with vomiting so will proceed with GI of bowel and possible EGD . (2) Diabetes: Code(s): E11.9 - Type 2 diabetes mellitus without complications Status: Acute Assessment and Plan: Sliding scale. Check an A1c also (3) Arteriosclerotic coronary artery disease: Code(s): I25.10 - Atherosclerotic heart disease of [place] coronary artery without angina pectoris Status: Acute Assessment and Plan: Inactive problem. Continue beta-martin and statin. patient states she takes aspirin and Plavix which are not on her medication list and should be since had been just quite 6 months since her cardiac stent by history so will reorder (4) Chronic renal failure, stage 3 (moderate): Code(s): N18.3 - Chronic kidney disease, stage 3 (moderate) Status: Acute Assessment and Plan: Creatinine 2.3 today. monitor (5) PVD (peripheral vascular disease): Code(s): I73.9 - Peripheral vascular disease, unspecified Status: Acute Assessment and Plan: Not active problem. Continue anti platelets and statins (6) DVT prophylaxis: Code(s): Z29.9 - Encounter for prophylactic measures, unspecified Status: Acute Assessment and Plan: lovenox Subjective Date/time seen: 11/06/19 11:50 Interval history: Date of visit 11/06/19. 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 She continues to have nausea but states that she had a some formed bowel movement today. Wanting to try some liquids though. 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 but the discomfort to started last few days Exam Narrative: Exam Narrative: Blood pressure 142/80 pulse is 96 afebrile Pupils equal reactive to light sclera anicteric Mouth poor dentition stud in tongue Lungs are clear no wheezing or consolidation CV tachy no murmurs or gallops Abdomen is soft bowel sounds are present but still some mild diffuse tenderness Extremities without edema dorsalis pedis posterior tibial 1 to 2+ slightly more prominent on the right and left 5th toe is amputated Neuro alert oriented cranial nerves 2-12 intact no focal neurological deficits Objective Data Vital Signs Vital Signs: Vital Signs - 24 hr 11/05/19 12:00 11/05/19 14:00 11/05/19 16:00 Temperature 36.4 C L Pulse Rate 114 H 110 H 99 Respiratory Rate 20 Blood Pressure 123/82 Pulse Oximetry 92 11/05/19 16:33 11/05/19 20:00 11/05/19 22:00 Temperature 36.2 C L Pulse Rate 103 H 100 102 H Respiratory Rate 16 Blood Pressure 150/85 H Pulse Oximetry 100 11/06/19 00:00 11/06/19 04:00 11/06/19 05:57 Temperature 36.2 C L Pulse Rate 92 97 99 Respiratory Rate 18 Blood Pressure 142/81 H Pulse Oximetry 99 11/06/19 08:00 11/06/19 09:29 11/06/19 09:59 Temperature Pulse Rate 91 Respiratory Rate Blood Pressure Pulse Oximetry 96 90 Intake/Output Intake/Output: Intake & Output 11/03/19 11/04/19 11/05/19 11/06/19 23:59 23:59 23:59 23:59 Intake Total 2120 1000 Output Total 600 750 Balance 1520 250 Meds/Results Medications: Active Medications Generic Name Dose Route Start Last Admin Trade Name Freq PRN Reason Stop Dose Admin Aspirin 81 mg 11/06/19 09:00 11/06/19 09:11 Aspirin Ec PO 81 mg QAM DEJAH Administration Atorvastatin Calcium 40 mg 11/06/19 09:00 11/06/19 09:11 Lipitor PO 40 mg DAILY DEJAH Administration Carvedilol 12.5
[2019-11-06] MEDS: HYDROMORPHONE HCL 1 MG/ML INJ 0.5 MG IV PUSH ×3 (13:25→21:16)
[2019-11-06 17:27] LABS: Glucose Point of Care 271 (65-105)
[2019-11-06] MEDS: INSULIN ASPART (*BKC) 100 UNITS/ML SUB-Q (17:29)
[2019-11-06] MEDS: QUEtiapine FUMARATE 25 MG TABLET PO (21:09)
[2019-11-06] MEDS: ENOXAPARIN 40 MG/0.4 ML SYRINGE SUB-Q (21:09)
[2019-11-06 23:01] LABS: Glucose Point of Care 235 (65-105)
[2019-11-07] VITALS (8 sets, daily range): BP systolic 118–157; BP diastolic 49–98; PULSE 43–95; RESP 19–20; TEMP 35.5–36.6; O2SAT 95–98
[2019-11-07] MEDS: HYDROMORPHONE HCL 1 MG/ML INJ 0.5 MG IV PUSH ×5 (02:05→18:40)
[2019-11-07] MEDS: SODIUM CHLORIDE 0.9% IV 1,000 ML 50 ML IV CONT (02:07)
[2019-11-07 05:46] LABS: Basophils Absolute Auto 0.1 K/mm3 (0.0-0.1); Basophils Percent Auto 0.6 % (0.2-1.2); Eosinophils Absolute Auto 0.1 K/mm3 (0-0.3); Eosinophils Percent Auto 0.4 % (0-4.4); Hemoglobin 11.2 g/dL (12.0-15.0); Immature Granulocyte Absolute 0.09 K/mm3 (0.00-0.031); Immature Granulocyte Percent A 0.6 % (0-0.5); Lymphocytes Absolute Auto 2.99 K/mm3 (0.9-3.2); Lymphocytes Percent Auto 21.1 % (18.3-44.2); Mean Corpuscular HGB Conc 30.3 g/dl (32-36); Mean Corpuscular Hemoglobin 26.5 pg (26-34); Mean Corpuscular Volume 87.5 fl (80-100); Mean Platelet Volume 11.8 fl (7.4-10.4); Monocytes Absolute Auto 1.2 K/mm3 (0.1-0.6); Monocytes Percent Auto 8.3 % (2.6-8.5); Neutrophils Absolute Auto 9.7 K/mm3 (1.3-6.7); Platelet Count Result 196 k/mm3 (150-375); Red Blood Count 4.23 M/mm3 (4.2-5.4); Red Cell Distribution Width 15.3 % (11.5-14.5); White Blood Count 14.1 K/mm3 (4.5-10.0)
[2019-11-07 05:53] LABS: Blood Urea Nitrogen 40 mg/dL (7-17); Calcium 8.7 mg/dL (8.4-10.2); Carbon Dioxide 24 mmol/L (22-30); Chloride 104 mmol/L (98-107); Estimated CRCL calculation 0 ml/min; Estimated Glomerular Filt Rate 20; Glucose 181 mg/dL (65-105); Potassium 4.3 mmol/L (3.4-5.0); Sodium 137 mmol/L (137-145)
[2019-11-07 06:15] LABS: Hemoglobin A1C 7.7 % (<5.7)
[2019-11-07] MEDS: ATORVASTATIN 40 MG TABLET PO (08:36)
[2019-11-07] MEDS: ASPIRIN 81 MG ENTERIC TABLET PO (08:36)
[2019-11-07] MEDS: FLUOXETINE HCL 20 MG CAP PO ×3 (08:37→17:12)
[2019-11-07] MEDS: carvediloL 12.5 MG TABLET PO ×2 (08:37→17:12)
[2019-11-07] MEDS: CLOPIDOGREL BISULFATE 75 MG TABLET PO (08:37)
[2019-11-07] MEDS: lamoTRIgine 25 MG TABLET PO ×2 (08:37→17:13)
[2019-11-07] MEDS: PANTOPRAZOLE SODIUM IV 40 MG VIAL IV PUSH ×2 (08:38→20:25)
[2019-11-07] MEDS: ONDANSETRON INJ 4 MG/2 ML VIAL IV PUSH ×2 (10:35→14:44)
--- NOTE | 2019-11-07 12:23 | PM.IMPN ---
Progress Note: A&P Assessment and Plan (1) Gastroenteritis: Code(s): K52.9 - Noninfective gastroenteritis and colitis, unspecified Status: Acute Assessment and Plan: Could be simple gastroenteritis, but with her 3-4 week history could be peptic disease, gastric outlet obstruction, or even gastroparesis. After hydration and PPI, she is still nauseated with vomiting GI saw and GB sono possible cholecystitis. Biliary scan ordered. Presentation and physical exam not that compatible with cholecystitis but has had persistent leukocytosis so will culture and empirically started on Zosyn pending biliary scan . Pending those results GI will entertain EGD (2) Diabetes: Code(s): E11.9 - Type 2 diabetes mellitus without complications Status: Acute Assessment and Plan: Sliding scale. A1c 7.7 (3) Arteriosclerotic coronary artery disease: Code(s): I25.10 - Atherosclerotic heart disease of [place] coronary artery without angina pectoris Status: Acute Assessment and Plan: Inactive problem. Continue beta-martin and statin. patient states she takes aspirin and Plavix which are not on her medication list and should be since had been just quite 6 months since her cardiac stent by history so reordered (4) Chronic renal failure, stage 3 (moderate): Code(s): N18.3 - Chronic kidney disease, stage 3 (moderate) Status: Acute Assessment and Plan: Creatinine 2.6 today, will increase IV fluids with her vomiting probable prerenal. monitor (5) PVD (peripheral vascular disease): Code(s): I73.9 - Peripheral vascular disease, unspecified Status: Acute Assessment and Plan: Not active problem. Continue anti platelets and statins (6) DVT prophylaxis: Code(s): Z29.9 - Encounter for prophylactic measures, unspecified Status: Acute Assessment and Plan: lovenox Subjective Date/time seen: 11/07/19 12:23 Interval history: Date of visit 11/07/19. 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 She continues to have nausea but states that she had a some formed bowel movement again. Has had early childhood nausea for several weeks but the discomfort to started last few days. US this am revealed possible sludge with probable small stones, probable GB wall thickening and possible pericholecystic fluid. Biliary scan ordered Exam Narrative: Exam Narrative: Blood pressure 124/50 pulse is 66 afebrile Pupils equal reactive to light sclera anicteric Mouth poor dentition stud in tongue Lungs are clear no wheezing or consolidation CV tachy no murmurs or gallops Abdomen is soft bowel sounds are present but still some mild diffuse tenderness, most in epigastric area not localized to RUQ Extremities without edema dorsalis pedis posterior tibial 1 to 2+ slightly more prominent on the right and left 5th toe is amputated Neuro alert oriented cranial nerves 2-12 intact no focal neurological deficits Objective Data Vital Signs Vital Signs: Vital Signs - 24 hr 11/06/19 14:00 11/06/19 17:24 11/06/19 21:47 Temperature 36.6 C 36.2 C L Pulse Rate 51 L 60 54 L Respiratory Rate 16 18 Blood Pressure 133/91 H 118/54 L Pulse Oximetry 99 99 11/07/19 05:53 11/07/19 08:37 Temperature 36.2 C L Pulse Rate 57 L 76 Respiratory Rate 20 Blood Pressure 124/49 L Pulse Oximetry 98 Intake/Output Intake/Output: Intake & Output 11/04/19 11/05/19 11/06/19 11/07/19 23:59 23:59 23:59 23:59 Intake Total 2120 2000 1240 Output Total 600 1050 650 Balance 1520 950 590 Meds/Results Medications: Active Medications Generic Name Dose Route Start Last Admin Trade Name Freq PRN Reason Stop Dose Admin Aspirin 81 mg 11/06/19 09:00 11/07/19 08:36 [facility]in Ec [facility] [place] [facility]
--- NOTE | 2019-11-07 15:13 | CONS_ITS ---
DATE OF CONSULTATION: 11/07/2019 HISTORY OF PRESENT ILLNESS: A 39-year-old female with history of type 2 diabetes with peripheral neuropathy, peripheral vascular disease, chronic kidney disease, coronary artery disease status post MD x2 and stent, cardiomyopathy, CHF, DVT, hypertension, hyperlipidemia, depression, fibroids, migraine headaches, MRSA, GERD with gastritis, history of GI bleed, osteoarthritis, polycystic ovarian syndrome, PID, obstructive sleep apnea, urinary tract infection, yeast infection, bilateral cataract extractions, , D and C, tubal ligation, who presents with nausea and vomiting. I am now asked to provide GI evaluation at the request of the Hospitalist Service. Primary care provider is Dr. Braulio Martinez. The patient states that for the past month she has been having nausea and vomiting that usually occurs in the morning. The day of admission, symptoms increased and persisted throughout the day causing her to come to the hospital. There is no coffee-ground or hematemesis. She has a periumbilical and epigastric discomfort along with this. She had chronic cough, occasionally productive of clear sputum. She typically has constipation with bowel movements every 4-5 days, though this is not a problem lately. In general, she denies heartburn, trouble swallowing, loss of appetite or weight, diarrhea, hematochezia, melena, fever, jaundice, scleral icterus, dark urine, light stools, itching, hot or cold intolerance, chest pain, shortness of breath at rest, hematuria, dysuria, visual changes, easy bruising, tingling of the skin, bone pain, or tremors. No endocarditis risk factors. ALLERGIES: LATEX AND ADHESIVE TAPE. MEDICATIONS: Include: 1. Atorvastatin. 2. Carvedilol. 3. Klonopin. 4. Iron. 5. Fluoxetine. 6. Gabapentin. 7. Lamotrigine. 8. Quetiapine. 9. Augmentin. 10. Doxycycline. 11. Flagyl. SOCIAL HISTORY: Nonsmoker, nondrinker, but does use marijuana daily. FAMILY HISTORY: Negative for GI malignancy. The patient has never had colonoscopy or upper endoscopy. PHYSICAL EXAMINATION: GENERAL: Well-developed, well-nourished obese female, lying in bed, in no apparent distress. She has no lower extremity edema, jaundice, spider angioma, palmar erythema. HEENT: Skull is normocephalic, atraumatic. Pupils nonicteric. Oropharynx clear. NECK: Supple without thyromegaly. LUNGS: Clear to auscultation. HEART: Rate and rhythm regular. S1, S2 normal. ABDOMEN: Normoactive bowel sounds. Soft, nontender, nonrigid, nondistended without hepatosplenomegaly or masses. RECTAL: Deferred. NEURO: Conscious, alert x3. LABORATORY DATA: Labs on November 05, total bilirubin 0.4, alk phos 120, AST 29, ALT is 20. CT scan of the abdomen and pelvis shows some question of wall thickening in the sigmoid colon and a large right ovary. On 11/06, total bilirubin 0.6, alk phos 101, AST 53, ALT is 18, creatinine is 2.6 and today hemoglobin is 11, hematocrit 37, white count of 14. Hemoglobin A1c is 7.7. ASSESSMENT/PLAN: 1. The patient with history of gastroesophageal reflux disease. Continue PPI. 2. Nausea, vomiting, abdominal pain, likely multifactorial. Some of this could be cyclic nausea and vomiting with marijuana use. There is also likely contribution from diabetic gastroparesis and renal insufficiency. With abnormal LFTs, certainly could consider gallbladder disease as well. Need to optimize medical and glycemic control. I have discussed marijuana cessation with the patient and risk of hyperemesis associated with marijuana use. Control symptoms with Reglan. The patient will need upper endoscopy and right upper quadrant ultrasound. 3. The procedure of upper endoscopy, its indications, alternatives of barium studies, an
[2019-11-07 16:11] LABS: Glucose Point of Care 179 (65-105)
[2019-11-07] MEDS: SODIUM CHLORIDE 0.9% IV 1,000 ML 125 ML IV CONT (17:12)
[2019-11-07] MEDS: CLONAZEPAM 0.5 MG TAB 1 MG PO (17:13)
[2019-11-07 17:19] LABS: Glucose Point of Care 256 (65-105)
[2019-11-07] MEDS: INSULIN ASPART (*BKC) 100 UNITS/ML SUB-Q (17:20)
[2019-11-07] MEDS: PROCHLORPERAZINE EDISYLATE 10 MG/2 ML VIAL IV PUSH (17:40)
[2019-11-07] MEDS: QUEtiapine FUMARATE 25 MG TABLET PO (20:26)
[2019-11-07] MEDS: ENOXAPARIN 40 MG/0.4 ML SYRINGE SUB-Q (20:26)
[2019-11-07 20:50] LABS: Glucose Point of Care 195 (65-105)
[2019-11-08] VITALS (13 sets, daily range): BP systolic 117–149; BP diastolic 64–96; PULSE 78–97; RESP 16–25; TEMP 36.2–36.6; O2SAT 89–100
[2019-11-08] MEDS: SODIUM CHLORIDE 0.9% IV 1,000 ML 125 ML IV CONT ×2 (01:12→16:44)
[2019-11-08] MEDS: HYDROMORPHONE HCL 1 MG/ML INJ 0.5 MG IV PUSH ×4 (01:13→21:51)
[2019-11-08 05:35] LABS: Alanine Aminotransferase 32 U/L (4-35); Alkaline Phosphatase 99 U/L (38-126); Aspartate Amino Transferase 200 U/L (14-36); Bilirubin,Total 1.3 mg/dL (0.2-1.3); Blood Urea Nitrogen 41 mg/dL (7-17); Calcium 8.3 mg/dL (8.4-10.2); Carbon Dioxide 20 mmol/L (22-30); Chloride 104 mmol/L (98-107); Estimated CRCL calculation 33 ml/min; Estimated Glomerular Filt Rate 20; Glucose 188 mg/dL (65-105); Potassium 4.1 mmol/L (3.4-5.0); Sodium 134 mmol/L (137-145)
[2019-11-08 05:39] LABS: Basophils Absolute Auto 0.1 K/mm3 (0.0-0.1); Basophils Percent Auto 0.5 % (0.2-1.2); Eosinophils Percent Auto 0.2 % (0-4.4); Hematocrit 34.1 % (37.0-47.0); Hemoglobin 10.5 g/dL (12.0-15.0); Immature Granulocyte Absolute 0.09 K/mm3 (0.00-0.031); Immature Granulocyte Percent A 0.5 % (0-0.5); Lymphocytes Absolute Auto 2.76 K/mm3 (0.9-3.2); Lymphocytes Percent Auto 16.4 % (18.3-44.2); Mean Corpuscular HGB Conc 30.8 g/dl (32-36); Mean Corpuscular Hemoglobin 26.6 pg (26-34); Mean Corpuscular Volume 86.5 fl (80-100); Mean Platelet Volume 12.2 fl (7.4-10.4); Monocytes Absolute Auto 1.5 K/mm3 (0.1-0.6); Monocytes Percent Auto 8.7 % (2.6-8.5); Neutrophils Absolute Auto 12.4 K/mm3 (1.3-6.7); Neutrophils Percent Auto 73.7 % (45.5-73.1); Nucleated Red Blood Cells Perc 0.1 % (0.0-0.2); Platelet Count Result 185 k/mm3 (150-375); Red Blood Count 3.94 M/mm3 (4.2-5.4); Red Cell Distribution Width 15.1 % (11.5-14.5); White Blood Count 16.9 K/mm3 (4.5-10.0)
[2019-11-08] MEDS: MORPHINE SULFATE 2 MG/ML INJ IV PUSH (09:10)
--- NOTE | 2019-11-08 09:40 | PC.NURSE ---
Patient returned from nuclear medicine via stretcher. To go to GI lab for EGD. Report given to Rylie FERNANDEZ. Consent on front of chart.
[2019-11-08] MEDS: INSULIN ASPART (*BKC) 100 UNITS/ML SUB-Q ×2 (09:49→17:48)
[2019-11-08] MEDS: PANTOPRAZOLE SODIUM IV 40 MG VIAL IV PUSH ×2 (09:52→21:22)
[2019-11-08 10:02] LABS: Glucose Point of Care 219 (65-105)
--- NOTE | 2019-11-08 10:04 | PC.NURSE ---
To GI lab via stretcher with GI lab staff.
[2019-11-08] MEDS: LACTATED RINGERS 1,000 ML 150 ML IV CONT (10:45)
[2019-11-08 10:52] LABS: Glucose Point of Care 204 (65-105)
--- NOTE | 2019-11-08 11:05 | WPDANESEPPF ---
Anes - Initial Pre Proc Eval Procedure: Operation Date: 11/08/19 11:00 Proposed Procedures p Esophagogastroduodenoscopy - Reid Mujica MD Date/Time: 11/08/19 11:05 Surgeon: Moo Garza MD Pre Op Diagnosis: Intractable abdominal pain, nausea, Patient Data Age: 39 Gender: F Height: 5 ft 4.8 in Weight: 113 kg Last Vital Signs Temp 97.1 F L 11/08/19 05:48 Pulse 90 11/08/19 05:48 Resp 20 11/08/19 05:48 BP 123/84 11/08/19 05:48 Pulse Ox 90 11/08/19 05:48 Allergies Allergy/AdvReac Type Severity Reaction Status Date / Time latex Allergy Mild Blister Verified 11/08/19 10:27 adhesive tape AdvReac Blister Verified 11/08/19 10:27 Home Medications Medication Instructions Recorded Confirmed Type atorvastatin [Lipitor] 40 mg PO DAILY 08/18/19 11/05/19 History carvedilol 12.5 mg PO BID 08/18/19 11/05/19 History clonazepam 1 mg PO BID PRN 08/18/19 11/05/19 History ferrous sulfate 324 mg PO DAILY 08/18/19 11/05/19 History fluoxetine 20 mg PO TID 08/18/19 11/05/19 History gabapentin 200 mg PO TID 08/18/19 11/05/19 History lamotrigine 25 mg PO BID 08/18/19 11/05/19 History quetiapine 25 mg PO HS 08/18/19 11/05/19 History amoxicillin-pot clavulanate 1 tablet PO Q12H #16 tablet 08/20/19 11/05/19 Rx doxycycline hyclate 100 mg PO BID #12 tablet 08/20/19 11/05/19 Rx metronidazole 500 mg PO Q12H 10 Days #16 tablet 08/20/19 11/05/19 Rx Laboratory Tests 11/07/19 11/07/19 11/07/19 12:09 17:17 20:25 WBC RBC Hgb Hct MCV MCH MCHC RDW Plt Count MPV Immature Gran % (Auto) Neut % (Auto) Lymph % (Auto) [place] % (Auto) Eos % (Auto) Baso % (Auto) Lymph # (Auto) [place] # (Auto) Eos # (Auto) Baso # (Auto) Abs Immat Gran (auto) Absolute Neuts (auto) Absolute Nucleated RBC Nucleated RBC % Sodium Potassium Chloride Carbon Dioxide BUN Creatinine Estim Creat Clear Calc Estimated GFR Glucose POC Capillary Glucose 179 mg/dl H mg/dl 256 mg/dl H mg/dl 195 mg/dl H mg/dl (65-105) (65-105) (65-105) Calcium Total Bilirubin AST ALT Alkaline Phosphatase Total Protein Albumin 11/08/19 11/08/19 11/08/19 04:58 04:58 09:45 WBC 16.9 K/mm3 H K/mm3 (4.5-10.0) RBC 3.94 M/mm3 L M/mm3 (4.2-5.4) Hgb 10.5 g/dL L g/dL (12.0-15.0) Hct 34.1 % L % (37.0-47.0) MCV 86.5 fl fl (80-100) MCH 26.6 pg pg (26-34) MCHC 30.8 g/dl L g/dl (32-36) RDW 15.1 % H % (11.5-14.5) Plt Count 185 k/mm3 k/mm3 (150-375) MPV 12.2 fl H fl (7.4-10.4) Immature Gran % (Auto) 0.5 % % (0-0.5) Neut % (Auto) 73.7 % H % (45.5-73.1) Lymph % (Auto) 16.4 % L % (18.3-44.2) [place] % (Auto) 8.7 % H % (2.6-8.5) Eos % (Auto) 0.2 % % (0-4.4) Baso % (Auto) 0.5 % % (0.2-1.2) Lymph # (Auto) 2.76 K/mm3 K/mm3 (0.9-3.2) [place] # (Auto) 1.5 K/mm3 H K/mm3 (0.1-0.6) Eos # (Auto) 0.0 K/mm3 K/mm3 (0-0.3) Baso # (Auto) 0.1 K/mm3 K/mm3 (0.0-0.1) Abs Immat Gran (auto) 0.09 K/mm3 H K/mm3 (0.00-0.031) Absolute Neuts (auto) 12.4 K/mm3 H K/mm3 (1.3-6.7) Absolute Nucleated RBC 0.0 K/mm3 K/mm3 (0.0-0.012) Nucleated RBC % 0.1 % % (0.0-0.2) Sodium 134 mmol/L L mmol/L (137-145) Potassium 4.1 mmol/L mmol/L (3.4-5.0) Chloride 104 mmol/L mmol/L (98-107) Carbon Dioxide 20 mmol/L L mmol/L
[2019-11-08 11:48] LABS: Glucose Point of Care 190 (65-105)
--- NOTE | 2019-11-08 12:00 | PC.NURSE ---
Received patient back from GI lab via stretcher. Patient settled in bed. Alert and awake. C/o nausea and abdominal pain. No distress noted.
[2019-11-08] MEDS: ONDANSETRON INJ 4 MG/2 ML VIAL IV PUSH ×2 (12:40→17:42)
[2019-11-08] MEDS: ATORVASTATIN 40 MG TABLET PO (12:46)
[2019-11-08] MEDS: ASPIRIN 81 MG ENTERIC TABLET PO (12:46)
[2019-11-08] MEDS: carvediloL 12.5 MG TABLET PO ×2 (12:46→17:43)
[2019-11-08] MEDS: CLOPIDOGREL BISULFATE 75 MG TABLET PO (12:46)
[2019-11-08] MEDS: lamoTRIgine 25 MG TABLET PO ×2 (12:47→17:43)
[2019-11-08] MEDS: FLUOXETINE HCL 20 MG CAP PO ×2 (12:47→17:43)
[2019-11-08 13:06] LABS: Glucose Point of Care 199 (65-105)
--- NOTE | 2019-11-08 14:11 | PM.IMPN ---
Progress Note: A&P Assessment and Plan (1) Gastroenteritis: Code(s): K52.9 - Noninfective gastroenteritis and colitis, unspecified Status: Acute Assessment and Plan: CT abdomen and pelvis consistent with colitis Right upper quadrant ultrasound with some gallbladder edema Liver architecture appears normal on both CT and ultrasound HIDA scan is more consistent with hepatic dysfunction than gallbladder dysfunction Suspect acute colitis Cannot rule out ischemic etiology Motility dysfunction less likely Continue to Zosyn Advanced diet as tolerated (2) Diabetes: Qualifiers: Diabetes mellitus type: type 1 Diabetes mellitus complication status: with kidney complications Diabetes mellitus complication detail: with chronic kidney disease Chronic kidney disease stage: stage 3 (moderate) Qualified Code(s): E10.22 - Type 1 diabetes mellitus with diabetic chronic kidney disease; N18.3 - Chronic kidney disease, stage 3 (moderate) Code(s): E11.9 - Type 2 diabetes mellitus without complications Status: Acute Assessment and Plan: Sliding scale. A1c 7.7 (3) Chronic renal failure, stage 3 (moderate): Code(s): N18.3 - Chronic kidney disease, stage 3 (moderate) Status: Acute Assessment and Plan: 11/08 Creatinine 2.6 today. Continue IVF. F/u lab (4) PVD (peripheral vascular disease): Code(s): I73.9 - Peripheral vascular disease, unspecified Status: Acute Assessment and Plan: Not active problem. Continue anti platelets and statins (5) DVT prophylaxis: Code(s): Z29.9 - Encounter for prophylactic measures, unspecified Status: Acute Assessment and Plan: lovenox (6) Arteriosclerotic coronary artery disease: Code(s): I25.10 - Atherosclerotic heart disease of [place] coronary artery without angina pectoris Status: Acute Assessment and Plan: Inactive problem. Continue beta-martin and statin. 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 She continues to have nausea but states that she had a some formed bowel movement again. 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 Was having nausea vomiting abdominal pain and diarrhea admission. 11/08 nausea but no vomiting or diarrhea. No bleeding. Tolerated full liquids. Review of Systems Review of Systems: All systems reviewed & are unremarkable except as noted in HPI and below Exam Narrative: Exam Narrative: Blood pressure 124/50 pulse is 66 afebrile Pupils equal reactive to light sclera anicteric Mouth poor dentition stud in tongue Lungs are clear no wheezing or consolidation CV tachy no murmurs or gallops Abdomen is soft bowel sounds are present but still some mild diffuse tenderness without rebound or guarding or masses Extremities without edema Neuro alert oriented cranial nerves 2-12 intact no focal neurological deficits Objective Data Vital Signs Vital Signs: Vital Signs - 24 hr 11/07/19 17:12 11/07/19 20:00 11/07/19 21:20 Temperature Pulse Rate 82 82 47 L Respiratory Rate 19 Blood Pressure Pulse Oximetry 95 95 11/07/19 22:00 11/08/19 05:48 11/08/19 11:31 Temperature 96 F L 97.1 F L Pulse Rate 43 L 90 97 Respiratory Rate 20 20 25 H Blood Pressure 118/74 123/84 117/88 Pulse Oximetry 95 90 95 11/08/19 11:41 11/08/19 11:51 11/08/19 12:01 Temperature Pulse Rate 96 96 95 Respiratory Rate 16 21 H 16 Blood Pressure 130/96 H 146/85 H 141/95 H Pulse O
[2019-11-08 17:22] LABS: Glucose Point of Care 225 (65-105)
[2019-11-08] MEDS: ENOXAPARIN 40 MG/0.4 ML SYRINGE SUB-Q (21:22)
[2019-11-08] MEDS: QUEtiapine FUMARATE 25 MG TABLET PO (21:25)
[2019-11-08 21:27] LABS: Glucose Point of Care 229 (65-105)
[2019-11-09] VITALS (7 sets, daily range): BP systolic 102–132; BP diastolic 71–93; PULSE 88–97; RESP 12–18; TEMP 36.1–36.4; O2SAT 94–97
[2019-11-09] MEDS: PROCHLORPERAZINE EDISYLATE 10 MG/2 ML VIAL IV PUSH ×3 (01:50→17:59)
[2019-11-09] MEDS: HYDROMORPHONE HCL 1 MG/ML INJ 0.5 MG IV PUSH ×3 (01:50→12:45)
[2019-11-09 05:46] LABS: Alanine Aminotransferase 30 U/L (4-35); Albumin Level 3.1 g/dL (3.5-5.1); Alkaline Phosphatase 85 U/L (38-126); Aspartate Amino Transferase 93 U/L (14-36); Bilirubin,Total 1.3 mg/dL (0.2-1.3); Blood Urea Nitrogen 42 mg/dL (7-17); Calcium 8.3 mg/dL (8.4-10.2); Carbon Dioxide 18 mmol/L (22-30); Chloride 105 mmol/L (98-107); Estimated CRCL calculation 31 ml/min; Estimated Glomerular Filt Rate 19; Glucose 197 mg/dL (65-105); Potassium 4.2 mmol/L (3.4-5.0); Sodium 133 mmol/L (137-145)
[2019-11-09 05:46] LABS: Basophils Absolute Auto 0.1 K/mm3 (0.0-0.1); Basophils Percent Auto 0.4 % (0.2-1.2); Eosinophils Absolute Auto 0.1 K/mm3 (0-0.3); Eosinophils Percent Auto 0.4 % (0-4.4); Hematocrit 34.6 % (37.0-47.0); Hemoglobin 10.7 g/dL (12.0-15.0); Immature Granulocyte Absolute 0.06 K/mm3 (0.00-0.031); Immature Granulocyte Percent A 0.4 % (0-0.5); Lymphocytes Absolute Auto 3.21 K/mm3 (0.9-3.2); Mean Corpuscular HGB Conc 30.9 g/dl (32-36); Mean Corpuscular Hemoglobin 26.8 pg (26-34); Mean Corpuscular Volume 86.7 fl (80-100); Mean Platelet Volume 12.5 fl (7.4-10.4); Monocytes Absolute Auto 1.3 K/mm3 (0.1-0.6); Monocytes Percent Auto 7.8 % (2.6-8.5); Neutrophils Absolute Auto 11.4 K/mm3 (1.3-6.7); Nucleated Red Blood Cells Absolute Auto 0.1 K/mm3 (0.0-0.012); Nucleated Red Blood Cells Perc 0.4 % (0.0-0.2); Platelet Count Result 186 k/mm3 (150-375); Red Blood Count 3.99 M/mm3 (4.2-5.4); Red Cell Distribution Width 15.6 % (11.5-14.5)
[2019-11-09] MEDS: SODIUM CHLORIDE 0.9% IV 1,000 ML 125 ML IV CONT ×3 (06:11→23:16)
[2019-11-09] MEDS: ONDANSETRON INJ 4 MG/2 ML VIAL IV PUSH ×2 (08:54→16:45)
[2019-11-09] MEDS: CLOPIDOGREL BISULFATE 75 MG TABLET PO (08:57)
[2019-11-09] MEDS: FLUOXETINE HCL 20 MG CAP PO ×3 (08:57→16:44)
[2019-11-09] MEDS: lamoTRIgine 25 MG TABLET PO ×2 (08:57→16:44)
[2019-11-09] MEDS: carvediloL 12.5 MG TABLET PO ×2 (08:57→16:44)
[2019-11-09] MEDS: PANTOPRAZOLE SODIUM IV 40 MG VIAL IV PUSH (08:58)
[2019-11-09] MEDS: ATORVASTATIN 40 MG TABLET PO (08:58)
[2019-11-09] MEDS: ASPIRIN 81 MG ENTERIC TABLET PO (08:58)
--- NOTE | 2019-11-09 09:16 | WPDANESPN ---
Anes - Prog Note Post-Op Date/Time: 11/09/19 09:16 Cardiovascular status: normal Respiratory status: normal Airway patency: baseline Mental status: baseline Post-Op hydration status: normal Vital Signs: Last Vital Signs Temp 97.5 F L 11/09/19 06:13 Pulse 88 11/09/19 08:57 Resp 18 11/09/19 06:13 BP 102/71 11/09/19 06:13 Pulse Ox 96 11/09/19 06:13 I/O: Intake & Output 11/08/19 11/09/19 11/09/19 23:59 07:59 15:59 Intake Total 1790 1250 Output Total 400 400 Balance 1390 850 Laboratory Tests 11/09/19 05:13 11/09/19 05:14 11/08/19 11/08/19 11/08/19 09:45 10:50 11:45 WBC RBC Hgb Hct MCV MCH MCHC RDW Plt Count MPV Immature Gran % (Auto) Neut % (Auto) Lymph % (Auto) [place] % (Auto) Eos % (Auto) Baso % (Auto) Lymph # (Auto) [place] # (Auto) Eos # (Auto) Baso # (Auto) Abs Immat Gran (auto) Absolute Neuts (auto) Absolute Nucleated RBC Nucleated RBC % Sodium Potassium Chloride Carbon Dioxide BUN Creatinine Estim Creat Clear Calc Estimated GFR Glucose POC Capillary Glucose 219 H 204 H 190 H Calcium Total Bilirubin AST ALT Alkaline Phosphatase Total Protein Albumin 11/08/19 11/08/19 11/08/19 12:51 17:00 21:21 WBC RBC Hgb Hct MCV MCH MCHC RDW Plt Count MPV Immature Gran % (Auto) Neut % (Auto) Lymph % (Auto) [place] % (Auto) Eos % (Auto) Baso % (Auto) Lymph # (Auto) [place] # (Auto) Eos # (Auto) Baso # (Auto) Abs Immat Gran (auto) Absolute Neuts (auto) Absolute Nucleated RBC Nucleated RBC % Sodium Potassium Chloride Carbon Dioxide BUN Creatinine Estim Creat Clear Calc Estimated GFR Glucose POC Capillary Glucose 199 H 225 H 229 H Calcium Total Bilirubin AST ALT Alkaline Phosphatase Total Protein Albumin 11/09/19 11/09/19 05:13 05:14 WBC 16.0 H RBC 3.99 L Hgb 10.7 L Hct 34.6 L MCV 86.7 MCH 26.8 MCHC 30.9 L RDW 15.6 H Plt Count 186 MPV 12.5 H Immature Gran % (Auto) 0.4 Neut % (Auto) 71.0 Lymph % (Auto) 20.0 [place] % (Auto) 7.8 Eos % (Auto) 0.4 Baso % (Auto) 0.4 Lymph # (Auto) 3.21 H [place] # (Auto) 1.3 H Eos # (Auto) 0.1 Baso # (Auto) 0.1 Abs Immat Gran (auto) 0.06 H Absolute Neuts (auto) 11.4 H Absolute Nucleated RBC 0.1 H Nucleated RBC % 0.4 H Sodium 133 L Potassium 4.2 Chloride 105 Carbon Dioxide 18 L BUN 42 H Creatinine 2.70 H Estim Creat Clear Calc 31 Estimated GFR 19 L Glucose 197 H POC Capillary Glucose Calcium 8.3 L Total Bilirubin 1.3 AST 93 H ALT 30 Alkaline Phosphatase 85 Total Protein 6.0 L Albumin 3.1 L Microbiology 11/07/19 13:12 Blood Blood Culture - Preliminary 11/07/19 13:12 Blood Blood Culture - Preliminary Post-procedural complaints: none Patient Feedback: Patient satisfied with anesthetic care.
--- NOTE | 2019-11-09 09:55 | WPDGIPROGNO ---
Progress Note: A&P Additional Plan Patient states she feels improvement today. Tolerating more of her diet. She denies diarrhea. She denies abdominal pain. Physical exam reveals her to be alert. Vital signs stable. Lungs are clear. Abdomen is obese. Bowel sounds are present. Abdomen is soft with no localized tenderness. Laboratory work reveals WBC 16. Hemoglobin 10.7. CT scan suggest wall thickening of sigmoid colon. Impression 1. Nausea and vomiting. EGD yesterday was negative. This could be related to marijuana use. With elevated WBC suggest gastroenteritis. 2. Abnormal CT scan. Sigmoid thickening suggesting colitis. Patient has minimal symptoms of this at present. Suggest nonspecific gastroenteritis. Consider elective colonoscopy later particularly if symptoms persist or developed. 3. Elevated serum transaminases. This is nonspecific. Could be related to gastroenteritis. Suggest monitoring labs at this point and follow conservatively for now. Additional testing only if remain elevated. Plan to advance diet. Continue supportive care. Discharge if diet tolerated. Subjective Date/time seen: 11/09/19 09:55 Objective Data Vital Signs Vital Signs: Vital Signs - 24 hr 11/08/19 11:31 11/08/19 11:41 11/08/19 11:51 Temperature Pulse Rate 97 96 96 Respiratory Rate 25 H 16 21 H Blood Pressure 117/88 130/96 H 146/85 H Pulse Oximetry 95 99 100 11/08/19 12:01 11/08/19 12:46 11/08/19 13:08 Temperature Pulse Rate 95 82 Respiratory Rate 16 Blood Pressure 141/95 H Pulse Oximetry 97 100 11/08/19 14:00 11/08/19 14:08 11/08/19 15:34 Temperature Pulse Rate Respiratory Rate 18 Blood Pressure Pulse Oximetry 89 L 89 L 11/08/19 17:43 11/08/19 21:34 11/09/19 01:50 Temperature 36.2 C L Pulse Rate 78 92 Respiratory Rate 18 Blood Pressure 149/64 H Pulse Oximetry 92 97 11/09/19 01:56 11/09/19 06:13 11/09/19 08:57 Temperature 36.4 C L Pulse Rate 97 88 88 Respiratory Rate 12 18 Blood Pressure 102/71 Pulse Oximetry 97 96 Intake/Output Intake/Output: Intake & Output 11/06/19 11/07/19 11/08/19 11/09/19 23:59 23:59 23:59 23:59 Intake Total 2000 3460 3230 1250 Output Total 1050 1300 1000 400 Balance 950 2160 2230 850 Meds/Results Medications: Active Medications Generic Name Dose Route Start Last Admin Trade Name Freq PRN Reason Stop Dose Admin Aspirin 81 mg 11/06/19 09:00 11/09/19 08:58 Aspirin Ec PO 81 mg QAM DEJAH Administration Atorvastatin Calcium 40 mg 11/06/19 09:00 11/09/19 08:58 Lipitor PO 40 mg DAILY DEJAH Administration Carvedilol 12.5 mg 11/05/19 17:00 11/09/19 08:57 Coreg PO 12.5 mg BID DEJAH Administration Clonazepam 1 mg 11/05/19 11:14 11/07/19 17:13 Klonopin Tablet PO 1 mg BID PRN Administration Anxiety Clopidogrel Bisulfate 75 mg 11/06/19 09:00 11/09/19 08:57 Plavix PO 75 mg QAM DEJAH Administration Dextrose 12.5 gm 11/06/19 12:33 Dextrose 50% Syringe IV PUSH PRN PRN Hypoglycemia Protocol Enoxaparin Sodium 40 mg 11/06/19 21:00 11/08/19 21:22 Lovenox SUB-Q 40 mg HS DEJAH Administration Fluoxetine HCl 20 mg 11/05/19 13:00 11/09/19 08:57 Prozac PO 20 mg TID DEJAH Administration Glucagon 1 mg 11/06/19 12:33 Glucagon For Inj IM PRN PRN Hypoglycemia Protocol Glucose 15 gm 11/06/19 12:33 Glutose 15 PO PRN PRN Hypoglycemia Protocol Hydromorphone HCl 0.5 mg 11/06/19 10:38 11/09/19 08:54 Dilaudid Inj IV PUSH 0.5 mg Q4H PRN Administration Pain Rated 7-10 Sodium Chloride 1,000 mls @ 125 mls/hr 11/05/19 11:05 11/09/19 09:00 Normal Saline Iv IV CONT Not Given .Q8H DEJAH Dextrose 1,000 mls @ 100 mls/hr 11/06/19 12:33 Dextrose 5% 1,000 Ml IVPB PRN PRN Hypoglycemia Protocol Piperacillin Sod/Tazobactam Sod 2.25 gm in 50 mls @ 100 mls/hr 11/07/19 18
[2019-11-09 10:15] LABS: Glucose Point of Care 191 (65-105)
--- NOTE | 2019-11-09 13:01 | PM.IMPN ---
Progress Note: A&P Assessment and Plan (1) Gastroenteritis: Code(s): K52.9 - Noninfective gastroenteritis and colitis, unspecified Status: Acute Assessment and Plan: CT abdomen and pelvis consistent with colitis Right upper quadrant ultrasound with some gallbladder edema Liver architecture appears normal on both CT and ultrasound HIDA scan is more consistent with hepatic dysfunction than gallbladder dysfunction Suspect acute colitis Cannot rule out ischemic etiology Motility dysfunction less likely Continue to Zosyn 11/09 added famotidine and prn mylanta Advanced diet as tolerated (2) Diabetes: Qualifiers: Diabetes mellitus type: type 1 Diabetes mellitus complication status: with kidney complications Diabetes mellitus complication detail: with chronic kidney disease Chronic kidney disease stage: stage 3 (moderate) Qualified Code(s): E10.22 - Type 1 diabetes mellitus with diabetic chronic kidney disease; N18.3 - Chronic kidney disease, stage 3 (moderate) Code(s): E11.9 - Type 2 diabetes mellitus without complications Status: Acute Assessment and Plan: Sliding scale. A1c 7.7 (3) Chronic renal failure, stage 3 (moderate): Code(s): N18.3 - Chronic kidney disease, stage 3 (moderate) Status: Acute Assessment and Plan: 11/08 creatinine 2.6 11/09 creatinine 2.7 Continue IVF. F/u lab (4) PVD (peripheral vascular disease): Code(s): I73.9 - Peripheral vascular disease, unspecified Status: Acute Assessment and Plan: Not active problem. Continue anti platelets and statins (5) DVT prophylaxis: Code(s): Z29.9 - Encounter for prophylactic measures, unspecified Status: Acute Assessment and Plan: lovenox (6) Arteriosclerotic coronary artery disease: Code(s): I25.10 - Atherosclerotic heart disease of [place] coronary artery without angina pectoris Status: Acute Assessment and Plan: Inactive problem. Continue beta-martin and statin. patient states she takes aspirin and Plavix which are not on her medication list and should be since had been just quite 6 months since her cardiac stent by history so reordered Subjective Date/time seen: 11/09/19 13:01 Interval history: 39-year-old white female with known coronary disease peripheral vascular disease chronic renal failure stage 3 and longterm diabetes presents to the emergency room with nausea and vomiting and some abdominal discomfort. She continues to have nausea but states that she had a some formed bowel movement again. 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 Was having nausea vomiting abdominal pain and diarrhea admission. 11/08 nausea but no vomiting or diarrhea. No bleeding. Tolerated full liquids. 11/09 c/o belching and heartburn. No emesis. No diarrhea. Review of Systems Review of Systems: All systems reviewed & are unremarkable except as noted in HPI and below Exam Narrative: Exam Narrative: Blood pressure 124/50 pulse is 66 afebrile Pupils equal reactive to light sclera anicteric Mouth poor dentition stud in tongue Lungs are clear no wheezing or consolidation CV tachy no murmurs or gallops Abdomen is soft bowel sounds are present but still some mild diffuse tenderness without rebound or guarding or masses Extremities without edema Neuro alert oriented cranial nerves 2-12 intact no focal neurological deficits Objective Data Vital Signs Vital Signs: Vital Signs - 24 hr 11/08/19 13:08 11/08/19 14:00 11/08/19 14:08 Temperature Pulse Rate Respiratory Rate Blood Pressure Pulse Oximetry 100 89 L 89 L 11/08/19 15:34 11/08/19 17:43 11/08/19 21:34 Temperature 97.2 F L Pulse Rate 78 92 Respiratory Rate 18 18 Blood Pressure 149/64 H Pulse Oximetry 92 11/09/19 01:50 11/09/19 01:56 11/09/19 06:13 Temperature 97.5 F L Pulse Rate
[2019-11-09] MEDS: MENTHOL 10% / METHYL SALICYLATE 15% 57 GM TUBE 1 APPLIC TOPICAL ×2 (14:31→21:41)
[2019-11-09] MEDS: FAMOTIDINE 20 MG TABLET PO ×2 (14:31→21:35)
[2019-11-09 14:39] LABS: Glucose Point of Care 209 (65-105)
[2019-11-09] MEDS: INSULIN ASPART (*BKC) 100 UNITS/ML SUB-Q (14:51)
[2019-11-09 17:38] LABS: Glucose Point of Care 193 (65-105)
[2019-11-09] MEDS: QUEtiapine FUMARATE 25 MG TABLET PO (21:34)
[2019-11-09] MEDS: PANTOPRAZOLE 40 MG TABLET PO (21:35)
[2019-11-09] MEDS: ENOXAPARIN 40 MG/0.4 ML SYRINGE SUB-Q (21:36)
[2019-11-09 21:57] LABS: Glucose Point of Care 204 (65-105)
[2019-11-10] MEDS: ONDANSETRON INJ 4 MG/2 ML VIAL IV PUSH ×2 (03:32→08:14)
[2019-11-10 05:55] LABS: Hematocrit 34.7 % (37.0-47.0); Hemoglobin 10.7 g/dL (12.0-15.0); Mean Corpuscular HGB Conc 30.8 g/dl (32-36); Mean Corpuscular Hemoglobin 26.5 pg (26-34); Mean Corpuscular Volume 85.9 fl (80-100); Mean Platelet Volume 12.2 fl (7.4-10.4); Platelet Count Result 205 k/mm3 (150-375); Red Blood Count 4.04 M/mm3 (4.2-5.4); Red Cell Distribution Width 15.6 % (11.5-14.5); White Blood Count 15.5 K/mm3 (4.5-10.0)
[2019-11-10 06:05] VITALS: BP 131/91; PULSE 81; RESP 16; TEMP 35.6; O2SAT 98
[2019-11-10 06:12] LABS: Alanine Aminotransferase 30 U/L (4-35); Albumin Level 2.7 g/dL (3.5-5.1); Alkaline Phosphatase 84 U/L (38-126); Aspartate Amino Transferase 55 U/L (14-36); Bilirubin,Total 1.4 mg/dL (0.2-1.3); Blood Urea Nitrogen 38 mg/dL (7-17); Calcium 8.2 mg/dL (8.4-10.2); Carbon Dioxide 18 mmol/L (22-30); Chloride 106 mmol/L (98-107); Estimated CRCL calculation 33 ml/min; Estimated Glomerular Filt Rate 20; Glucose 175 mg/dL (65-105); Sodium 136 mmol/L (137-145)
[2019-11-10 08:07] VITALS: PULSE 81
[2019-11-10] MEDS: ATORVASTATIN 40 MG TABLET PO (08:07)
[2019-11-10] MEDS: carvediloL 12.5 MG TABLET PO ×2 (08:07→17:25)
[2019-11-10] MEDS: PANTOPRAZOLE 40 MG TABLET PO ×2 (08:07→20:51)
[2019-11-10] MEDS: FLUOXETINE HCL 20 MG CAP PO ×3 (08:07→17:25)
[2019-11-10] MEDS: CLOPIDOGREL BISULFATE 75 MG TABLET PO (08:08)
[2019-11-10] MEDS: lamoTRIgine 25 MG TABLET PO ×2 (08:08→17:25)
[2019-11-10] MEDS: ASPIRIN 81 MG ENTERIC TABLET PO (08:08)
[2019-11-10] MEDS: FAMOTIDINE 20 MG TABLET PO ×2 (08:08→20:51)
[2019-11-10] MEDS: SODIUM CHLORIDE 0.9% IV 1,000 ML 125 ML IV CONT ×2 (09:07→20:49)
--- NOTE | 2019-11-10 11:41 | PM.IMPN ---
Progress Note: A&P Assessment and Plan (1) Gastroenteritis: Code(s): K52.9 - Noninfective gastroenteritis and colitis, unspecified Status: Acute Assessment and Plan: CT abdomen and pelvis consistent with colitis Right upper quadrant ultrasound with some gallbladder edema Liver architecture appears normal on both CT and ultrasound HIDA scan is more consistent with hepatic dysfunction than gallbladder dysfunction Suspect acute colitis Cannot rule out ischemic etiology Motility dysfunction less likely Continue to Zosyn 11/09 added famotidine and prn mylanta Advanced diet as tolerated, encouraged increased activity (2) Diabetes: Qualifiers: Diabetes mellitus type: type 1 Diabetes mellitus complication status: with kidney complications Diabetes mellitus complication detail: with chronic kidney disease Chronic kidney disease stage: stage 3 (moderate) Qualified Code(s): E10.22 - Type 1 diabetes mellitus with diabetic chronic kidney disease; N18.3 - Chronic kidney disease, stage 3 (moderate) Code(s): E11.9 - Type 2 diabetes mellitus without complications Status: Acute Assessment and Plan: Sliding scale. A1c 7.7 (3) Chronic renal failure, stage 3 (moderate): Code(s): N18.3 - Chronic kidney disease, stage 3 (moderate) Status: Acute Assessment and Plan: 11/08 creatinine 2.6 11/09 creatinine 2.7 11/10 2.6 Continue IVF. F/u lab (4) PVD (peripheral vascular disease): Code(s): I73.9 - Peripheral vascular disease, unspecified Status: Acute Assessment and Plan: Not active problem. Continue anti platelets and statins (5) DVT prophylaxis: Code(s): Z29.9 - Encounter for prophylactic measures, unspecified Status: Acute Assessment and Plan: lovenox (6) Arteriosclerotic coronary artery disease: Code(s): I25.10 - Atherosclerotic heart disease of [place] coronary artery without angina pectoris Status: Acute Assessment and Plan: Inactive problem. Continue beta-martin and statin. 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 She continues to have nausea but states that she had a some formed bowel movement again. 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 Was having nausea vomiting abdominal pain and diarrhea admission. 11/08 nausea but no vomiting or diarrhea. No bleeding. Tolerated full liquids. 11/09 c/o belching and heartburn. No emesis. No diarrhea. 11/10 generalized abd pain after eating. Tolerating soft, bland foods. Review of Systems Review of Systems: All systems reviewed & are unremarkable except as noted in HPI and below Exam Narrative: Exam Narrative: Pupils equal reactive to light sclera anicteric Mouth poor dentition stud in tongue Lungs are clear no wheezing or consolidation CV tachy no murmurs or gallops Abdomen is soft bowel sounds are present but still some mild diffuse tenderness without rebound or guarding or masses Extremities without edema Neuro alert oriented cranial nerves 2-12 intact no focal neurological deficits Objective Data Vital Signs Vital Signs: Vital Signs - 24 hr 11/09/19 14:00 11/09/19 16:44 11/09/19 21:14 Temperature 97.6 F 96.9 F L Pulse Rate 89 89 92 Respiratory Rate 16 18 Blood Pressure 126/88 132/93 H Pulse Oximetry 95 94 11/10/19 06:05 11/10/19 08:07 Temperature 96.0 F L Pulse Rate 81 81 Respiratory Rate 16 Blood Pressure 131/91 H Pulse Oximetry 98 Intake/
[2019-11-10] MEDS: PROCHLORPERAZINE EDISYLATE 10 MG/2 ML VIAL IV PUSH ×2 (11:52→17:22)
--- NOTE | 2019-11-10 13:02 | WPDGIPROGNO ---
Progress Note: A&P Additional Plan Patient reported some difficulty with solid food intake yesterday. Feels much better today. Willing to try more advanced diet. Physical exam. She is alert. Afebrile. Lungs are clear. Abdomen is obese. Soft and nontender. Laboratory WBC 15.5. Hemoglobin 10.7. Impression: 1. gastroenteritis. CT scan suggest mild distal colitis. Patient now has normal bowel movements. Previously was constipated. 2. Obesity. 3. Nausea vomiting. This appears to have resolved. Could be related to her diabetes mellitus. 4. DM Plan is to advance diet slowly. Conservative therapy advised at this point. Subjective Date/time seen: 11/10/19 13:02 Objective Data Vital Signs Vital Signs: Vital Signs - 24 hr 11/09/19 14:00 11/09/19 16:44 11/09/19 21:14 Temperature 36.4 C 36.1 C L Pulse Rate 89 89 92 Respiratory Rate 16 18 Blood Pressure 126/88 132/93 H Pulse Oximetry 95 94 11/10/19 06:05 11/10/19 08:07 Temperature 35.6 C L Pulse Rate 81 81 Respiratory Rate 16 Blood Pressure 131/91 H Pulse Oximetry 98 Intake/Output Intake/Output: Intake & Output 11/07/19 11/08/19 11/09/19 11/10/19 23:59 23:59 23:59 23:59 Intake Total 3460 3230 4520 1650 Output Total 1300 1000 900 900 Balance 2160 2230 3620 750 Meds/Results Medications: Active Medications Generic Name Dose Route Start Last Admin Trade Name Freq PRN Reason Stop Dose Admin Hydrocodone Bitart/Acetaminophen 1 tab 11/09/19 14:47 11/10/19 11:51 [place] 5-325 Mg PO 1 tab Q4H PRN Administration Pain Rated 4-6 Hydrocodone Bitart/Acetaminophen 2 tab 11/09/19 14:47 11/09/19 17:57 [place] 5-325 Mg PO 2 tab Q4H PRN Administration Pain Rated 7-10 Al Hydrox/Mg Hydrox/Simethicone 30 ml 11/09/19 13:00 Mylanta PO Q6H PRN Indigestion Aspirin 81 mg 11/06/19 09:00 11/10/19 08:08 Aspirin Ec PO 81 mg QAM DEJAH Administration Atorvastatin Calcium 40 mg 11/06/19 09:00 11/10/19 08:07 Lipitor PO 40 mg DAILY DEJAH Administration Carvedilol 12.5 mg 11/05/19 17:00 11/10/19 08:07 Coreg PO 12.5 mg BID DEJAH Administration Clonazepam 1 mg 11/05/19 11:14 11/07/19 17:13 Klonopin Tablet PO 1 mg BID PRN Administration Anxiety Clopidogrel Bisulfate 75 mg 11/06/19 09:00 11/10/19 08:08 Plavix PO 75 mg QAM DEJAH Administration Dextrose 12.5 gm 11/06/19 12:33 Dextrose 50% Syringe IV PUSH PRN PRN Hypoglycemia Protocol Enoxaparin Sodium 40 mg 11/06/19 21:00 11/09/19 21:36 Lovenox SUB-Q 40 mg HS EDJAH Administration Famotidine 20 mg 11/09/19 21:00 11/10/19 08:08 Pepcid PO 20 mg Q12HR DEJAH Administration Fluoxetine HCl 20 mg 11/05/19 13:00 11/10/19 08:07 Prozac PO 20 mg TID DEJAH Administration Glucagon 1 mg 11/06/19 12:33 Glucagon For Inj IM PRN PRN Hypoglycemia Protocol Glucose 15 gm 11/06/19 12:33 Glutose 15 PO PRN PRN Hypoglycemia Protocol Sodium Chloride 1,000 mls @ 125 mls/hr 11/05/19 11:05 11/10/19 09:13 Normal Saline Iv IV CONT 0 mls/hr .Q8H DEJAH Infusion Dextrose 1,000 mls @ 100 mls/hr 11/06/19 12:33 Dextrose 5% 1,000 Ml IVPB PRN PRN Hypoglycemia Protocol Piperacillin Sod/Tazobactam Sod 2.25 gm in 50 mls @ 100 mls/hr 11/07/19 18:00 11/10/19 11:46 Zosyn 2.25 Gm/D5w 50 Ml IVPB 100 mls/hr Q6H DEJAH Administration Insulin Aspart 2 - 5 units 11/06/19 17:00 11/10/19 11:30 Novolog SUB-Q Not Given TIDWM DEJAH Protocol Lamotrigine 25 mg 11/05/19 17:00 11/10/19 08:08 Lamictal PO 25 mg BID DEJAH Administration Lidocaine HCl 0.3 ml 01/21/20 10:10 Xylocaine 2% Local Inj INTRADERM ONCE PRN to numb area Menthol/Methyl Salicylate 1 applic 11/09/19 12:55 11/09/19 21:41 [place] Pain Relieving Cream TOPICAL 1 applic QID PRN Administration Muscle/Joint Pain [place]
[2019-11-10] MEDS: INSULIN ASPART (*BKC) 100 UNITS/ML SUB-Q ×2 (13:26→17:51)
[2019-11-10 14:00] VITALS: BP 130/87; PULSE 77; RESP 16; TEMP 36.6; O2SAT 99
[2019-11-10 14:38] LABS: Glucose Point of Care 260 (65-105)
[2019-11-10 17:25] VITALS: PULSE 77
[2019-11-10 17:50] LABS: Glucose Point of Care 202 (65-105)
[2019-11-10] MEDS: MAG HYDROX/AL HYDROX/SIMETH 30 ML UDC PO (17:51)
[2019-11-10] MEDS: MORPHINE SULFATE 2 MG/ML INJ IV PUSH ×2 (18:50→22:46)
[2019-11-10] MEDS: ENOXAPARIN 40 MG/0.4 ML SYRINGE SUB-Q (20:51)
[2019-11-10] MEDS: QUEtiapine FUMARATE 25 MG TABLET PO (20:52)
[2019-11-10 21:10] LABS: Glucose Point of Care 198 (65-105)
[2019-11-10 22:46] VITALS: BP 117/75; PULSE 78; RESP 16; TEMP 35.7; O2SAT 99
--- NOTE | 2019-11-10 23:12 | PC.NURSE ---
all documentation and medication administration on 11/10/2019 from 1930 to 2200 was performed by Alexandria Smith RN
[2019-11-11] MEDS: PROCHLORPERAZINE EDISYLATE 10 MG/2 ML VIAL IV PUSH ×3 (02:53→23:42)
[2019-11-11] MEDS: MORPHINE SULFATE 2 MG/ML INJ IV PUSH (02:55)
[2019-11-11] MEDS: MAG HYDROX/AL HYDROX/SIMETH 30 ML UDC PO ×2 (02:59→19:34)
[2019-11-11 05:46] VITALS: BP 124/88; PULSE 76; RESP 16; TEMP 36.1; O2SAT 99
[2019-11-11] MEDS: SODIUM CHLORIDE 0.9% IV 1,000 ML 125 ML IV CONT (05:49)
[2019-11-11 09:22] LABS: Glucose Point of Care 194 (65-105)
[2019-11-11 09:29] VITALS: PULSE 76
[2019-11-11] MEDS: carvediloL 12.5 MG TABLET PO ×2 (09:29→17:33)
[2019-11-11] MEDS: lamoTRIgine 25 MG TABLET PO ×2 (09:29→17:33)
[2019-11-11] MEDS: ATORVASTATIN 40 MG TABLET PO (09:29)
[2019-11-11] MEDS: ASPIRIN 81 MG ENTERIC TABLET PO (09:29)
[2019-11-11] MEDS: FLUOXETINE HCL 20 MG CAP PO ×3 (09:30→17:33)
[2019-11-11] MEDS: PANTOPRAZOLE 40 MG TABLET PO ×2 (09:30→19:33)
[2019-11-11] MEDS: FAMOTIDINE 20 MG TABLET PO ×2 (09:30→19:33)
[2019-11-11] MEDS: CLOPIDOGREL BISULFATE 75 MG TABLET PO (09:30)
[2019-11-11 09:33] LABS: Hematocrit 37.5 % (37.0-47.0); Hemoglobin 11.7 g/dL (12.0-15.0); Mean Corpuscular HGB Conc 31.2 g/dl (32-36); Mean Corpuscular Hemoglobin 26.8 pg (26-34); Mean Platelet Volume 12.1 fl (7.4-10.4); Platelet Count Result 240 k/mm3 (150-375); Red Blood Count 4.36 M/mm3 (4.2-5.4); Red Cell Distribution Width 16.2 % (11.5-14.5); White Blood Count 15.7 K/mm3 (4.5-10.0)
[2019-11-11 09:53] LABS: Alanine Aminotransferase 33 U/L (4-35); Albumin Level 2.9 g/dL (3.5-5.1); Alkaline Phosphatase 101 U/L (38-126); Aspartate Amino Transferase 45 U/L (14-36); Bilirubin,Total 1.2 mg/dL (0.2-1.3); Blood Urea Nitrogen 35 mg/dL (7-17); Calcium 8.4 mg/dL (8.4-10.2); Carbon Dioxide 17 mmol/L (22-30); Chloride 105 mmol/L (98-107); Estimated CRCL calculation 33 ml/min; Estimated Glomerular Filt Rate 20; Glucose 207 mg/dL (65-105); Potassium 3.8 mmol/L (3.4-5.0); Sodium 134 mmol/L (137-145)
[2019-11-11] MEDS: CLONAZEPAM 0.5 MG TAB 1 MG PO (10:01)
[2019-11-11 10:10] LABS: CRP 11.8 mg/dL (<1.0)
--- NOTE | 2019-11-11 11:50 | WPDGIPROGNO ---
Progress Note: A&P Additional Plan Patient reports she is now tolerating diet. Mild nausea persist however. She denies fever. Bowel habits are more regular. Previously she was constipated. Physical exam reveals her to be alert. She is anicteric. Lungs are clear. Heart is without murmur. Abdominal exam is obese soft nontender with no localized tenderness or masses identified. WBC 15.7, remains elevated. BUN 35, creatinine 2.6. AST 45, previously was quite elevated. ALT 33 remains normal. Bilirubin 1.2. Alk-phos 101. Impression 1. Nausea and vomiting resolving. EGD was unremarkable. 2. S colon wall thickening. Appears to be nonspecific finding on CT scan. Colitis cannot be excluded. But symptoms do not appear to correlate. 3. Obesity. 4. Diabetes mellitus. 5. Azotemia. Renal insufficiency may contribute to her nausea. Likely related diabetes. 6. Elevated LFTs. HIDA scan suggest hepatocellular dysfunction. No evidence for cholecystitis. 7. Leukocytosis. Elevated CRP also noted. Underlying infection cannot be excluded. Patient has been on empiric antibiotics. Exact source of infection unclear. I find it difficult to attribute gastroenteritis to this finding. Plan is to advance diet as tolerated. Continue to monitor leukocytosis. Colonoscopy could be considered as an outpatient if necessary. Consider other sources for infection as well. Subjective Date/time seen: 11/11/19 11:50 Objective Data Vital Signs Vital Signs: Vital Signs - 24 hr 11/10/19 14:00 11/10/19 17:25 11/10/19 22:46 Temperature 36.6 C 35.7 C L Pulse Rate 77 77 78 Respiratory Rate 16 16 Blood Pressure 130/87 117/75 Pulse Oximetry 99 99 11/11/19 05:46 11/11/19 09:29 Temperature 36.1 C L Pulse Rate 76 76 Respiratory Rate 16 Blood Pressure 124/88 Pulse Oximetry 99 Intake/Output Intake/Output: Intake & Output 11/08/19 11/09/19 11/10/19 11/11/19 23:59 23:59 23:59 23:59 Intake Total 3230 4520 3350 1200 Output Total 9359 089 7206 1300 Balance 2230 3620 1999 - Meds/Results Medications: Active Medications Generic Name Dose Route Start Last Admin Trade Name Freq PRN Reason Stop Dose Admin Hydrocodone Bitart/Acetaminophen 1 tab 11/09/19 14:47 11/10/19 11:51 [place] 5-325 Mg PO 1 tab Q4H PRN Administration Pain Rated 4-6 Al Hydrox/Mg Hydrox/Simethicone 30 ml 11/09/19 13:00 11/11/19 02:59 Mylanta PO 30 ml Q6H PRN Administration Indigestion Aspirin 81 mg 11/06/19 09:00 11/11/19 09:29 Aspirin Ec PO 81 mg QAM DEJAH Administration Atorvastatin Calcium 40 mg 11/06/19 09:00 11/11/19 09:29 Lipitor PO 40 mg DAILY DEJAH Administration Carvedilol 12.5 mg 11/05/19 17:00 11/11/19 09:29 Coreg PO 12.5 mg BID DEJAH Administration Clonazepam 1 mg 11/05/19 11:14 11/11/19 10:01 Klonopin Tablet PO 1 mg BID PRN Administration Anxiety Clopidogrel Bisulfate 75 mg 11/06/19 09:00 11/11/19 09:30 Plavix PO 75 mg QAM DEJAH Administration Dextrose 12.5 gm 11/06/19 12:33 Dextrose 50% Syringe IV PUSH PRN PRN Hypoglycemia Protocol Enoxaparin Sodium 40 mg 11/06/19 21:00 11/10/19 20:51 Lovenox SUB-Q 40 mg HS DEJAH Administration Famotidine 20 mg 11/09/19 21:00 11/11/19 09:30 Pepcid PO 20 mg Q12HR DEJAH Administration Fluoxetine HCl 20 mg 11/05/19 13:00 11/11/19 09:30 Prozac PO 20 mg TID DEJAH Administration Glucagon 1 mg 11/06/19 12:33 Glucagon For Inj IM PRN PRN Hypoglycemia Protocol Glucose 15 gm 11/06/19 12:33 Glutose 15 PO PRN PRN Hypoglycemia Protocol Sodium Chloride 1,000 mls @ 125 mls/hr 11/05/19 11:05 11/11/19 05:49 Normal Saline Iv IV CONT 125 mls/hr .Q8H DEJAH Administration Piperacillin Sod/Tazobactam Sod 2.25 gm in 50 mls @ 100 mls/hr 11/07/19 18:00 11/11/19 07:15 Zosyn 2.25 Gm/D5w 50 Ml IVPB Infused Q6H DEJAH Infusion Insulin As
--- NOTE | 2019-11-11 12:51 | PM.IMPN ---
Subjective Date/time seen: 11/11/19 12:51 Interval history: Mild abd pain. Bowels moved. Tolerated soft, bland foods. Review of Systems Review of Systems: All systems reviewed & are unremarkable except as noted in HPI and below Objective Data Vital Signs Vital Signs: Vital Signs - 24 hr 11/10/19 14:00 11/10/19 17:25 11/10/19 22:46 Temperature 97.8 F 96.3 F L Pulse Rate 77 77 78 Respiratory Rate 16 16 Blood Pressure 130/87 117/75 Pulse Oximetry 99 99 11/11/19 05:46 11/11/19 09:29 Temperature 97.0 F L Pulse Rate 76 76 Respiratory Rate 16 Blood Pressure 124/88 Pulse Oximetry 99 Intake/Output Intake/Output: Intake & Output 11/08/19 11/09/19 11/10/19 11/11/19 23:59 23:59 23:59 23:59 Intake Total 3230 4520 3350 1200 Output Total 2112 217 6394 1300 Balance 2230 3620 1999 - Meds/Results Medications: Active Medications Generic Name Dose Route Start Last Admin Trade Name Freq PRN Reason Stop Dose Admin Hydrocodone Bitart/Acetaminophen 1 tab 11/09/19 14:47 11/10/19 11:51 [place] 5-325 Mg PO 1 tab Q4H PRN Administration Pain Rated 4-6 Al Hydrox/Mg Hydrox/Simethicone 30 ml 11/09/19 13:00 11/11/19 02:59 Mylanta PO 30 ml Q6H PRN Administration Indigestion Aspirin 81 mg 11/06/19 09:00 11/11/19 09:29 Aspirin Ec PO 81 mg QAM DEJAH Administration Atorvastatin Calcium 40 mg 11/06/19 09:00 11/11/19 09:29 Lipitor PO 40 mg DAILY DEJAH Administration Carvedilol 12.5 mg 11/05/19 17:00 11/11/19 09:29 Coreg PO 12.5 mg BID DEJAH Administration Clonazepam 1 mg 11/05/19 11:14 11/11/19 10:01 Klonopin Tablet PO 1 mg BID PRN Administration Anxiety Clopidogrel Bisulfate 75 mg 11/06/19 09:00 11/11/19 09:30 Plavix PO 75 mg QAM EDJAH Administration Dextrose 12.5 gm 11/06/19 12:33 Dextrose 50% Syringe IV PUSH PRN PRN Hypoglycemia Protocol Enoxaparin Sodium 40 mg 11/06/19 21:00 11/10/19 20:51 Lovenox SUB-Q 40 mg HS DEJAH Administration Famotidine 20 mg 11/09/19 21:00 11/11/19 09:30 Pepcid PO 20 mg Q12HR DEJAH Administration Fluoxetine HCl 20 mg 11/05/19 13:00 11/11/19 12:32 Prozac PO 20 mg TID DEJAH Administration Glucagon 1 mg 11/06/19 12:33 Glucagon For Inj IM PRN PRN Hypoglycemia Protocol Glucose 15 gm 11/06/19 12:33 Glutose 15 PO PRN PRN Hypoglycemia Protocol Sodium Chloride 1,000 mls @ 125 mls/hr 11/05/19 11:05 11/11/19 05:49 Normal Saline Iv IV CONT 125 mls/hr .Q8H DEJAH Administration Piperacillin Sod/Tazobactam Sod 2.25 gm in 50 mls @ 100 mls/hr 11/07/19 18:00 11/11/19 12:28 Zosyn 2.25 Gm/D5w 50 Ml IVPB 100 mls/hr Q6H DEJAH Administration Insulin Aspart 2 - 5 units 11/06/19 17:00 11/11/19 09:22 Novolog SUB-Q Not Given TIDWM [facility] Protocol Lamotrigine 25 mg 11/05/19 17:00 11/11/19 09:29 Lamictal PO 25 mg BID DEJAH Administration Lidocaine HCl 0.3 ml 11/08/19 10:10 Xylocaine 2% Local Inj INTRADERM ONCE PRN to numb area Menthol/Methyl Salicylate 1 applic 11/09/19 12:55 11/09/19 21:41 [place] Pain Relieving Cream TOPICAL 1 applic QID PRN Administration Muscle/Joint Pain Morphine Sulfate 2 mg 11/10/19 18:35 11/11/19 02:55 Morphine Sulfate Inj IV PUSH 2 mg Q4H PRN Administration Pain Rated 7-10 Pantoprazole Sodium 40 mg 11/09/19 21:00 11/11/19 09:30 Protonix PO 40 mg Q12HR DEJAH Administration Prochlorperazine Edisylate 10 mg 11/06/19 09:43 11/11/19 02:53 Compazine IV PUSH 10 mg Q6H PRN Administration Nausea And Vomiting Quetiapine Fumarate 25 mg 11/05/19 21:00 11/10/19 20:52 Seroquel PO 25 mg HS DEJAH Administration Radiology Results: ITS Impressions Abdomen/Pelvis CT 11/05/19 08:04 IMPRESSION: 1. Mild wall thickening of the sigmoid colon, which may be colitis. 2. Mild pulmonary edema. 3.
[2019-11-11 14:00] VITALS: BP 115/78; PULSE 80; RESP 16; TEMP 36.1; O2SAT 100
[2019-11-11 14:50] LABS: Glucose Point of Care 150 (65-105)
[2019-11-11 15:05] LABS: Glucose Point of Care 294 (65-105)
[2019-11-11] MEDS: INSULIN ASPART (*BKC) 100 UNITS/ML SUB-Q (15:43)
[2019-11-11] MEDS: MENTHOL 10% / METHYL SALICYLATE 15% 57 GM TUBE 1 APPLIC TOPICAL (15:45)
[2019-11-11 17:33] VITALS: PULSE 79
[2019-11-11] MEDS: LORAZEPAM INJ 2 MG/ML VIAL 1 MG IV PUSH (19:32)
[2019-11-11] MEDS: ENOXAPARIN 40 MG/0.4 ML SYRINGE SUB-Q (19:34)
[2019-11-11 21:25] VITALS: BP 126/65; PULSE 75; RESP 18; TEMP 36.3; O2SAT 98
[2019-11-11 23:49] LABS: Glucose Point of Care 267 (65-105)
[2019-11-12] MEDS: MENTHOL 10% / METHYL SALICYLATE 15% 57 GM TUBE 1 APPLIC TOPICAL (02:23)
[2019-11-12 05:59] VITALS: BP 125/83; PULSE 77; RESP 18; TEMP 36.6; O2SAT 97
--- NOTE | 2019-11-12 08:17 | WPDGIPROGNO ---
Progress Note: A&P Additional Plan Patient states that she feels much improved. Constipation at the time of admission has now resolved. She reports at home has had frequent diarrhea at and sent outpatient prior to this illness. She denies obvious bleeding. On physical exam vital signs are stable she is afebrile. Abdomen obese soft and nontender at this time. Laboratory reveals WBC pending from today WBC was 15.7 yesterday. Elevated CRP also noted. Impression leukocytosis. 1. Inflammatory process suspected with elevated CRP. 2. Colitis was identified on CT scan. This appeared to be most consistent with nonspecific colon thickening. Given her inflammatory response and possible infection infectious colitis cannot be excluded. Plan is to continue broad-spectrum antibiotics after discharge. Outpatient colonoscopy may be prudent. I have discussed the case with hospitalist Dr. Guzman who agrees plan. Plan is to continue antibiotic coverage to complete course after discharge. anticipate scheduling outpatient colonoscopy to evaluate for abnormal CT scan. Subjective Date/time seen: 11/12/19 08:17 Objective Data Vital Signs Vital Signs: Vital Signs - 24 hr 11/11/19 09:29 11/11/19 14:00 11/11/19 17:33 Temperature 36.1 C L Pulse Rate 76 80 79 Respiratory Rate 16 Blood Pressure 115/78 Pulse Oximetry 100 11/11/19 21:25 11/12/19 05:59 Temperature 36.3 C L 36.6 C Pulse Rate 75 77 Respiratory Rate 18 18 Blood Pressure 126/65 125/83 Pulse Oximetry 98 97 Intake/Output Intake/Output: Intake & Output 11/09/19 11/10/19 11/11/19 11/12/19 23:59 23:59 23:59 23:59 Intake Total 4520 3350 2740 350 Output Total 900 1350 1975 900 Balance 3620 2000 765 -550 Meds/Results Medications: Active Medications Generic Name Dose Route Start Last Admin Trade Name Freq PRN Reason Stop Dose Admin Hydrocodone Bitart/Acetaminophen 1 tab 11/09/19 14:47 11/10/19 11:51 [place] 5-325 Mg PO 1 tab Q4H PRN Administration Pain Rated 4-6 Al Hydrox/Mg Hydrox/Simethicone 30 ml 11/09/19 13:00 11/11/19 19:34 Mylanta PO 30 ml Q6H PRN Administration Indigestion Aspirin 81 mg 11/06/19 09:00 11/11/19 09:29 Aspirin Ec PO 81 mg QAM DEJAH Administration Atorvastatin Calcium 40 mg 11/06/19 09:00 11/11/19 09:29 Lipitor PO 40 mg DAILY DEJAH Administration Carvedilol 12.5 mg 11/05/19 17:00 11/11/19 17:33 Coreg PO 12.5 mg BID DEJAH Administration Clonazepam 1 mg 11/05/19 11:14 11/11/19 10:01 Klonopin Tablet PO 1 mg BID PRN Administration Anxiety Clopidogrel Bisulfate 75 mg 11/06/19 09:00 11/11/19 09:30 Plavix PO 75 mg QAM [facility] Administration Dextrose 12.5 gm 11/06/19 12:33 Dextrose 50% Syringe IV PUSH PRN PRN Hypoglycemia Protocol Enoxaparin Sodium 40 mg 11/06/19 21:00 11/11/19 19:34 Lovenox SUB-Q 40 mg HS DEJAH Administration Famotidine 20 mg 11/09/19 21:00 11/11/19 19:33 Pepcid PO 20 mg Q12HR DEJAH Administration Fluoxetine HCl 20 mg 11/05/19 13:00 11/11/19 17:33 Prozac PO 20 mg TID [facility] Administration Glucagon 1 mg 11/06/19 12:33 Glucagon For Inj IM PRN PRN Hypoglycemia Protocol Glucose 15 gm 11/06/19 12:33 Glutose 15 PO PRN PRN Hypoglycemia Protocol Piperacillin Sod/Tazobactam Sod 2.25 gm in 50 mls @ 100 mls/hr 11/07/19 18:00 11/12/19 00:13 Zosyn 2.25 Gm/D5w 50 Ml IVPB Infused Q6H [facility] Infusion Insulin Aspart 2 - 5 units 11/06/19 17:00 11/12/19 01:50 Novolog SUB-Q Not Given TIDWM [facility] Protocol Lamotrigine 25 mg 11/05/19 17:00 11/11/19 17:33 Lamictal PO 25 mg BID [facility] Administration Lidocaine HCl 0.3 ml 11/08/19 10:10 Xylocaine 2% Local Inj INTRADERM ONCE PRN to numb area Menthol/Methyl Salicylate 1 applic 11/09/19 12:55 11/12/19 02:23 [place]ay Pain Relieving Cream TOPICAL 1 applic QID PRN Admi
[2019-11-12 08:35] LABS: Hematocrit 33.5 % (37.0-47.0); Hemoglobin 10.7 g/dL (12.0-15.0); Mean Corpuscular HGB Conc 31.9 g/dl (32-36); Mean Corpuscular Hemoglobin 27.1 pg (26-34); Mean Corpuscular Volume 84.8 fl (80-100); Mean Platelet Volume 12.1 fl (7.4-10.4); Platelet Count Result 224 k/mm3 (150-375); Red Blood Count 3.95 M/mm3 (4.2-5.4); Red Cell Distribution Width 16.2 % (11.5-14.5); White Blood Count 15.7 K/mm3 (4.5-10.0)
[2019-11-12 08:49] LABS: Alanine Aminotransferase 126 U/L (4-35); Alkaline Phosphatase 116 U/L (38-126); Aspartate Amino Transferase 189 U/L (14-36); Bilirubin,Total 0.9 mg/dL (0.2-1.3); Blood Urea Nitrogen 36 mg/dL (7-17); CRP 8.2 mg/dL (<1.0); Calcium 8.5 mg/dL (8.4-10.2); Carbon Dioxide 17 mmol/L (22-30); Chloride 104 mmol/L (98-107); Estimated CRCL calculation 33 ml/min; Estimated Glomerular Filt Rate 20; Glucose 251 mg/dL (65-105); Potassium 3.9 mmol/L (3.4-5.0); Sodium 132 mmol/L (137-145)
[2019-11-12 08:54] VITALS: PULSE 76
[2019-11-12] MEDS: FAMOTIDINE 20 MG TABLET PO (08:54)
[2019-11-12] MEDS: FLUOXETINE HCL 20 MG CAP PO (08:54)
[2019-11-12] MEDS: CLOPIDOGREL BISULFATE 75 MG TABLET PO (08:54)
[2019-11-12] MEDS: ATORVASTATIN 40 MG TABLET PO (08:54)
[2019-11-12] MEDS: ASPIRIN 81 MG ENTERIC TABLET PO (08:54)
[2019-11-12] MEDS: carvediloL 12.5 MG TABLET PO (08:54)
[2019-11-12] MEDS: MAG HYDROX/AL HYDROX/SIMETH 30 ML UDC PO (08:54)
[2019-11-12] MEDS: lamoTRIgine 25 MG TABLET PO (08:54)
[2019-11-12] MEDS: CLONAZEPAM 0.5 MG TAB 1 MG PO (08:54)
[2019-11-12] MEDS: PANTOPRAZOLE 40 MG TABLET PO (08:54)
--- NOTE | 2019-11-12 10:02 | PM.DS ---
DS: Diagnosis Admitting Diagnosis Admitting Diagnosis: Noninfective gastroenteritis and colitis, unspecified Discharge Diagnosis (1) Gastroenteritis: Code(s): K52.9 - Noninfective gastroenteritis and colitis, unspecified Status: Acute Assessment and Plan: CT abdomen and pelvis consistent with colitis Right upper quadrant ultrasound with some gallbladder edema Liver architecture appears normal on both CT and ultrasound HIDA scan is more consistent with hepatic dysfunction than gallbladder dysfunction Suspect acute colitis Cannot rule out ischemic etiology Motility dysfunction less likely Continue to Zosyn 11/09 added famotidine and prn mylanta 11/12 WBC 15.7, CRP down from 11.8 to 8.2 11/12 tolerating diet and activity and wants to go home. No n/v or diarrhea or abdominal pain. (2) Diabetes: Qualifiers: Chronic kidney disease stage: stage 3 (moderate) Diabetes mellitus complication detail: with chronic kidney disease Diabetes mellitus complication status: with kidney complications Diabetes mellitus type: type 1 Qualified Code(s): E10.22 - Type 1 diabetes mellitus with diabetic chronic kidney disease; N18.3 - Chronic kidney disease, stage 3 (moderate) Code(s): E11.9 - Type 2 diabetes mellitus without complications Status: Acute Assessment and Plan: SSI in hospital. No meds as outpatient. Added sitagliptin 50mg (renal dose) daily. A1c 7.7 (3) Chronic renal failure, stage 3 (moderate): Code(s): N18.3 - Chronic kidney disease, stage 3 (moderate) Status: Acute Assessment and Plan: 11/08 creatinine 2.6 11/09 creatinine 2.7 11/10 2.6 11/12 2.6 (4) PVD (peripheral vascular disease): Code(s): I73.9 - Peripheral vascular disease, unspecified Status: Acute Assessment and Plan: Not active problem. Continue anti platelets and statins (5) DVT prophylaxis: Code(s): Z29.9 - Encounter for prophylactic measures, unspecified Status: Acute Assessment and Plan: lovenox while hospitalized (6) Arteriosclerotic coronary artery disease: Code(s): I25.10 - Atherosclerotic heart disease of nikolai coronary artery without angina pectoris Status: Acute Assessment and Plan: Inactive problem. Continue beta-martin and statin. patient states she takes aspirin and Plavix which are not on her medication list and should be since had been just quite 6 months since her cardiac stent by history so reordered DS: Summary Hospital Course Reason for hospitalization: Abdominal pain nausea vomiting Hospital Course: Patient presented with abdominal pain nausea vomiting. CT abdomen pelvis was consistent with colitis. Labs revealed leukocytosis and elevated CRP. These gradually improved with IV Zosyn and bowel rest and IV fluids. Blood sugars were controlled with sliding scale insulin. Creatinine was stable at 2.6 on last 3 days of hospitalization. Patient was up and about independently and tolerating her diet. She had an EGD that was unremarkable during hospitalization. She was to follow-up with Dr. Mujica's office regarding possible colonoscopy. She was to have follow-up labs within a week. Time Spent with Patient Time attestation: Total time spent providing and/or coordinating discharge services: 35 min Exam Narrative: Exam Narrative: Pupils equal reactive to light sclera anicteric Mouth poor dentition stud in tongue Lungs are clear no wheezing or consolidation CV tachy no murmurs or gallops Abdomen is soft bowel sounds are present, without tenderness and without rebound or guarding or masses Extremities without edema Neuro alert oriented cranial nerves 2-12 intact no focal neurological deficits DS: Data Data Completed and Pending Labs on day of discharge: Labs from last 24 hours 11/12/19 11/12/19 11/11/19 08:28 08:28 21:04 WBC 15.7 H RBC 3.95 L Hgb 10.7 L Hct 33.5 L MCV 84.8 MCH 27.1
== END 2019-11-12 13:00 | disposition home or self-care (01) | DRG 249 ==
LOC: ANHED 11-05 03:59 → ANH2MED 11-05 04:04
PROVIDERS: Internal Medicine; Internal Medicine Gastroenterology; Admitting Provider Family Medicine; Emergency Provider General Practice; PCP Family Medicine; Visit Provider Internal Medicine
PROC: 0DJ08ZZ Inspection of Upper Intestinal Tract, Via Natural or Artificial Opening Endoscopic (ICD-10-PCS; CPT 43235; principal; 2019-11-08 11:00)
DX: K52.9 Noninfective gastroenteritis and colitis, unspecified (principal); E11.42 Type 2 diabetes mellitus with diabetic polyneuropathy; E11.22 Type 2 diabetes mellitus with diabetic chronic kidney disease; I13.0 Hypertensive heart and chronic kidney disease with heart failure and stage 1 through stage 4 chronic kidney disease, or unspecified chronic kidney disease; N18.3 Chronic kidney disease, stage 3 (moderate); E11.51 Type 2 diabetes mellitus with diabetic peripheral angiopathy without gangrene; I73.9 Peripheral vascular disease, unspecified; I25.10 Atherosclerotic heart disease of native coronary artery without angina pectoris; D64.9 Anemia, unspecified; I42.9 Cardiomyopathy, unspecified; K21.9 Gastro-esophageal reflux disease without esophagitis; E78.5 Hyperlipidemia, unspecified; I50.9 Heart failure, unspecified; M19.90 Unspecified osteoarthritis, unspecified site; F41.8 Other specified anxiety disorders; G47.33 Obstructive sleep apnea (adult) (pediatric); E28.2 Polycystic ovarian syndrome; I25.2 Old myocardial infarction; Z89.422 Acquired absence of other left toe(s); Z79.02 Long term (current) use of antithrombotics/antiplatelets; Z79.82 Long term (current) use of aspirin; Z79.4 Long term (current) use of insulin; Z98.42 Cataract extraction status, left eye; Z98.41 Cataract extraction status, right eye; Z95.5 Presence of coronary angioplasty implant and graft; Z86.718 Personal history of other venous thrombosis and embolism
CPT/HCPCS: 36415; 74176; 76705; 78227; 80048; 80053; 81001; 81025; 82948; 83036; 83605; 83690; 83735; 85025; 85027; 85610; 85730; 86140; 87040; 87081; 93005; 94660; 96361; 96365; 96372; 96374; 96375; 96376; 99285; A9270; A9537; C9113; G0378; G0379; J0131; J0360; J0780; J1170; J1650; J1815; J2060; J2270; J2405; J2543; J2550; J2704; J7030; J7120

== ENCOUNTER 2020-03-21 11:06 | Observation (INO) | payer OTHER, SELFPAY ==
[2020-03-21] VITALS (11 sets, daily range): BP systolic 146–162; BP diastolic 95–122; PULSE 69–98; RESP 16–20; TEMP 36.4–36.6; O2SAT 97–100; BMI 39.4
--- NOTE | ~2020-03-21 | CT_ITS ---
EXAMINATION: CT abdomen pelvis wo con DATE: 03/21/2020 14:13 INDICATION: Abdominal pain, vomiting TECHNIQUE: Computed tomography (CT) of the abdomen was performed without intravenous contrast. [place] exposure control and iterative reconstruction technique were employed. Exam dose: 1462.39 mGy-cm total exam DLP. COMPARISON: None. FINDINGS: Cardiomegaly. Trace pericardial effusion. No or pleural effusion. There are 2 focal areas o f atelectasis/consolidation in the posterior and posteromedial right lower lobe, new since 11/05/2019. Small hepatic dome cyst. The liver is otherwise unremarkable. The gallbladder is present. No perichol ecystic fluid or stranding. No bile duct or pancreatic duct dilatation. A focal pancreatic calcificat ion is noted. There is mild peripancreatic fat stranding; recommend clinical correlation for possible acute interstitial pancreatitis. Normal morphology of the adrenal glands. There is relatively symmetric bilateral perinephric stranding. No renal mass lesion or urinary tract calculus or hydroureteronephrosis is evident. The urinary bladder is evacuated. There is a prominent soft tissue mass in the right adnexal area which is contiguous with the uterus, measuring up to 3.1 x 3.8 x 4.8 cm dimension. This may be a serosal fibroid or possible right ovarian mass. Consider pelvi c ultrasound for further evaluation. There is a small uterine calcification. There is a small amount of free fluid in the dependent pelvis including right adnexal area and cul-de-sac. Normal appendix. No bowel obstruction or intraperitoneal free air. No suspicious osteolytic or osteoblastic lesions are noted. IMPRESSION: Solitary punctate pancreatic calcification which may indicate mild chronic pancreatitis There is mild peripancreatic fat stranding which may indicate mild acute interstitial pancreatitis; r ecommend clinical correlation Small hepatic dome cyst Prominent right adnexal soft tissue mass which may be a serosal fibroid versus right ovarian mass Cardiomegaly Trace pericardial effusion Reviewed, dictated and finalized at [facility]. Reviewed, dictated and finalized at [facility]. IMPRESSION: Solitary punctate pancreatic calcification which may indicate mild chronic pancreatitis There is mild peripancreatic fat stranding which may indicate mild acute inters titial pancreatitis; recommend clinical correlation Small hepatic dome cyst Prominent right adnexal soft tissue mass which may be a serosal fibroid versus right ovarian mass Cardiomegaly Trace pericardial effusion
--- NOTE | ~2020-03-21 | XR_ITS ---
XR chest 2V DATE: 03/21/2020 13:08 INDICATION: Shortness of breath TECHNIQUE: PA and lateral views COMPARISON: 08/18/2019 PA and lateral chest FINDINGS: Cardiomegaly. No pulmonary infiltrate or consolidation, pleural effusion or pulmonary vascu lar congestion or pneumothorax is detected. IMPRESSION: Cardiomegaly Reviewed, dictated and finalized at [facility]. IMPRESSION: Cardiomegaly
--- NOTE | ~2020-03-21 | US_ITS ---
EXAMINATION: US pelvic complete w TV DATE: 03/22/2020 15:39 INDICATION: Right ovarian mass TECHNIQUE: Multiple transabdominal and endovaginal sonographic images of the pelvis were obtained. COMPARISON: CT dated 04/17/2020, 08/18/2019 and pelvic ultrasound dated 12/13/2017 FINDINGS: The uterus measures 7.9 x 4.8 x 4.7 cm. There are several small anechoic nabothian cysts at the cervi x. The endometrial complex measures 6 mm in thickness. The right ovary measures 4.8 x 3.9 x 4.2 cm. S table appearance of 3 simple appearing anechoic cysts in the right ovary the largest measuring 3.0 cm in maximal diameter. Normal vascular flow identified at the right ovary. The left ovary is not visua lized. There is a small amount of likely physiologic anechoic free fluid in the cul-de-sac. IMPRESSION: 1. Likely benign anechoic cysts in the right ovary. No solid right adnexal masses. Reviewed, dictated and finalized at [facility]. IMPRESSION: 1. Likely benign anechoic cysts in the right ovary. No solid right adnexal mass es.
--- NOTE | ~2020-03-21 | US_ITS ---
EXAMINATION: US venous doppler [facility] DATE: 03/22/2020 15:38 INDICATION: Lower limb swelling TECHNIQUE: Grayscale ultrasound images without and with compression and Doppler ultrasound images of the bilateral lower extremity veins were obtained. COMPARISON: None. FINDINGS: The visualized portions of right common femoral vein, profunda (deep) femoral vein, femoral vein, pop liteal vein, posterior tibial veins, peroneal veins, gastrocnemius vein and greater saphenous vein ou tflow are patent. The visualized portions of left common femoral vein, profunda femoral vein, femoral vein, popliteal v ein, posterior tibial veins, peroneal veins, gastrocnemius vein and greater saphenous vein outflow ar e patent. IMPRESSION: 1. No deep venous thrombosis in either lower limb. 2. Increased venous pulsatility extending below the knee in both limbs which could be seen with tricu spid regurgitation, right heart failure or other cause of elevated right heart pressures. Reviewed, dictated and finalized at location [facility]. IMPRESSION: 1. No deep venous thrombosis in either lower limb. 2. Increased venous pulsatility extending below the knee in both limbs which co uld be seen with tricuspid regurgitation, right heart failure or other cause of elevated right heart pressures.
--- NOTE | 2020-03-21 11:37 | ECG_ITS ---
Measurements Intervals [place] Rate: 94 P: 34 TN: 174 QRS: -73 QRSD: 125 T: 24 QT: 384 QTc: 481 Interpretive Statements SINUS RHYTHM POSSIBLE LEFT ATRIAL ENLARGEMENT INCOMPLETE RIGHT BUNDLE BRANCH BLOCK LEFT ANTERIOR FASCICULAR BLOCK HIGH LATERAL INFARCT- AGE INDETERMINATE BASELINE WANDER- V1-V2 ABNORMAL ECG Electronically Signed On 03-21-2020 12:46:05 CDT by Xavi Harding D.O.
--- NOTE | 2020-03-21 11:43 | ED.SOB ---
HPI - SOB/Dyspnea General Chief Complaint: Shortness of Breath/Dyspnea Stated Complaint: abd pain Time Seen by Provider: 03/21/20 11:11 Source: patient Mode of arrival: wheelchair Limitations: no limitations History of Present Illness HPI Narrative: This is a 39 year old female that presents to the ER for abdominal pain, nausea and vomiting x 3 days. Reports she was seen at an outside facility 3 days ago for this and a CT scan of her abdomen was done that was normal. Reports she has continued to vomit since. Reports history of gastroparesis. Reports the pain in her upper abdomen is burning and radiates into her chest. Also reports she is feeling short of breath. Reports a low-grade fever. Denies cough, or diarrhea. Related Data Home Medications Medication Instructions Recorded Confirmed atorvastatin [Lipitor] 40 mg PO DAILY 08/18/19 11/05/19 carvedilol 12.5 mg PO BID 08/18/19 11/05/19 clonazepam 1 mg PO BID PRN 08/18/19 11/05/19 ferrous sulfate 324 mg PO DAILY 08/18/19 11/05/19 fluoxetine 20 mg PO TID 08/18/19 11/05/19 gabapentin 200 mg PO TID 08/18/19 11/05/19 lamotrigine 25 mg PO BID 08/18/19 11/05/19 quetiapine 25 mg PO HS 08/18/19 11/05/19 Allergies Allergy/AdvReac Type Severity Reaction Status Date / Time latex Allergy Mild Blister Unverified 03/21/20 11:16 adhesive tape AdvReac Blister Unverified 03/21/20 11:16 Review of Systems Review of Systems: Narrative: CONSTITUTIONAL: Reports fever ENT: Denies rhinorrhea, congestion, sore throat CARDIOVASCULAR: Reports chest pain. Denies edema. RESPIRATORY: Reports dyspnea. Denies cough GASTROINTESTINAL: Reports abdominal pain, nausea, vomiting. Denies diarrhea. GENITOURINARY: Denies dysuria or hematuria. All systems reviewed & are unremarkable except as noted in HPI and below PMFSH Past Medical History Medical History (Updated 03/21/20 @ 15:55 by Aicha Alejo PA-C) Amputation toe left pinky toe Anemia Broken teeth CAD (coronary artery disease) Cardiomyopathy CHF (congestive heart failure) Depression with anxiety DVT (deep venous thrombosis) Fibroids Foot fracture, left Gastritis GERD (gastroesophageal reflux disease) GI bleed Heart attack x2 History of angina History of blood transfusion HTN (hypertension) Hyperlipidemia IDDM (insulin dependent diabetes mellitus) Migraine MRSA (methicillin resistant staph aureus) culture positive Nearsightedness Osteoarthritis PCOS (polycystic ovarian syndrome) Peripheral neuropathy PID (acute pelvic inflammatory disease) PVD (peripheral vascular disease) Sleep apnea Stage 3 chronic kidney disease UTI (urinary tract infection) Yeast infection Surgical History Surgical History H/O bilateral cataract extraction H/O section H/O dilation and curettage H/O hand surgery left tendon repair H/O tubal ligation History of cardiac cath 2 stents Hx of angioplasty Social History Social History (Updated 11/05/19 @ 00:46 by Isa Whitman) Smoking status: Light tobacco smoker Alcohol intake: never Substance use: current Substance use type: marijuana Gender identity (if verbalized by the patient): Female Spiritual care concerns: No Agree to blood products: Yes Exam Narrative: Exam Narrative: GENERAL: Well-appearing, obese, and in no acute distress. HEAD: Normocephalic, atraumatic. EYES: EOMI. ENT: Nares clear, no rhinorrhea or epistaxis. Mucous membranes moist. Oropharynx without tonsillar hypertrophy exudate or other lesions. Bilateral TMs pearly johns non-bulging NECK: Supple. No adenopathy or masses. CHEST: Clear to auscultation. No respiratory distress. No wheezes rales or rhonchi HEART: Regular rate and rhythm. No murmur heard. Normal peripheral pulses. ABDOMEN: Soft, nondistended, normal active bowel sounds. Tender palpation of epigastrium, without guarding EXTREMITIES: Normal range of motion. No edema. SKIN: Warm, dry, no rash.
--- NOTE | 2020-03-21 12:31 | PC.NURSE ---
unable to obtain iv access after multiple attempts by several rns
[2020-03-21] MEDS: FAMOTIDINE 20 MG/2 ML VIAL IV PUSH (12:57)
[2020-03-21] MEDS: METOCLOPRAMIDE HCL INJ 10 MG/2 ML VIAL (12:57)
[2020-03-21 13:01] LABS: Basophils Absolute Auto 0.1 K/mm3 (0.0-0.1); Basophils Percent Auto 0.3 % (0.2-1.2); Eosinophils Percent Auto 0.1 % (0-4.4); Hematocrit 39.4 % (37.0-47.0); Hemoglobin 12.5 g/dL (12.0-15.0); Immature Granulocyte Absolute 0.15 K/mm3 (0.00-0.031); Immature Granulocyte Percent A 0.9 % (0-0.5); Lymphocytes Absolute Auto 3.38 K/mm3 (0.9-3.2); Lymphocytes Percent Auto 19.5 % (18.3-44.2); Mean Corpuscular HGB Conc 31.7 g/dl (32-36); Mean Corpuscular Hemoglobin 27.1 pg (26-34); Mean Corpuscular Volume 85.3 fl (80-100); Mean Platelet Volume 11.2 fl (7.4-10.4); Neutrophils Absolute Auto 12.7 K/mm3 (1.3-6.7); Neutrophils Percent Auto 73.2 % (45.5-73.1); Nucleated Red Blood Cells Absolute Auto 0.1 K/mm3 (0.0-0.012); Nucleated Red Blood Cells Perc 0.3 % (0.0-0.2); Platelet Count Result 282 k/mm3 (150-375); Red Blood Count 4.62 M/mm3 (4.2-5.4); Red Cell Distribution Width 21.2 % (11.5-14.5); White Blood Count 17.3 K/mm3 (4.5-10.0)
[2020-03-21 13:13] LABS: Lactic Acid Reflex 1.5 mmol/L (0.7-2.1)
[2020-03-21 13:15] LABS: INR 4.4; Partial Thromboplastin Time 36.1 SECONDS (22.3-36.8); Prothrombin Time 41.3 Seconds (11.1-14.7)
[2020-03-21 13:16] LABS: Alanine Aminotransferase 42 U/L (4-35); Albumin Level 3.9 g/dL (3.5-5.1); Alkaline Phosphatase 99 U/L (38-126); Aspartate Amino Transferase 45 U/L (14-36); Bilirubin,Total 0.8 mg/dL (0.2-1.3); Blood Urea Nitrogen 49 mg/dL (7-17); Calcium 9.1 mg/dL (8.4-10.2); Carbon Dioxide 22 mmol/L (22-30); Chloride 104 mmol/L (98-107); Estimated CRCL calculation 35 ml/min; Estimated Glomerular Filt Rate 23; Glucose 191 mg/dL (65-105); Lipase 164 U/L (23-300); Sodium 135 mmol/L (137-145)
[2020-03-21 13:28] LABS: Troponin I 0.091 ng/mL (0.000-0.034)
[2020-03-21 13:58] LABS: NT Pro B Type Natriuretic Pept > 35000 PG/ML (5-100)
[2020-03-21 14:07] LABS: Add Urine Microscopic? YES; Appearance Urine Cloudy (Clear); Bacteria Urine Trace /hpf; Bilirubin Urine Negative (Negative); Blood Urine 1+ (Negative); Color Urine Yellow (Yellow); Glucose Urine UA Negative (Negative); Ketones Urine Negative (Negative); Leukocyte Esterase Ur Trace LEU/UL (Negative); Nitrate Urine Negative (Negative); Protein Urine 2+ mg/dL (Negative); Specific Grav Ur 1.017 (1.001-1.035); Squamous Epithelial Cell Urine Many /hpf (Few); Urobilinogen Urine Negative mg/dL (<2.0)
[2020-03-21] MEDS: LORAZEPAM INJ 2 MG/ML VIAL 1 MG IV PUSH (15:05)
[2020-03-21 16:47] LABS: Troponin I 0.091 ng/mL (0.000-0.034)
--- NOTE | 2020-03-21 18:56 | PC.NURSE ---
This patient, Michelle Rhoades, was admitted to IMU Room 202-01 at 1730. Patient/family oriented to hospital policies and general routines including ID bracelet, bed and alarms, visiting hours, pain management, procedures, bathroom and other care routines, personal items, smoking policy, room service/diet, and visiting hours. Valuables list has been completed. Information on how to activate the Rapid Response Team has been discussed. Patient/Family are encouraged to report perceived risks to care and to ask questions if they do not understand what they are told or what they should do.
[2020-03-21 19:30] LABS: Troponin I 0.096 ng/mL (0.000-0.034)
--- NOTE | 2020-03-21 19:58 | PM.IMHP ---
H&P: HPI History of Present Illness Chief complaint: Elevated troponin/nausea and vomiting/CHF Narrative: Michelle Rhoades is a 39 year old female who had been admitted here back in October. The patient was she is here with colitis at that time and gastroenteritis. She did see Dr. zepeda at that time. She had a HIDA scan performed at that time and is more consistent with hepatic dysfunction then gallbladder dysfunction. Is also suspected that the patient has some motility issues. Dr. costa saw the patient at that time. The patient came in today with complaints of nausea and vomiting x3 days. She was seen at an outside facility 3 days ago and had a CT of her abdomen which was reported as normal. She still continues to vomit since then. There is no mention of patient being diagnosed with cyclic vomiting syndrome. However the patient states that she smokes marijuana every other day. She has had no cough or diarrhea but toe tear that she had a low-grade fever. White count was noted to be 17.3 CT was read as solitary punctate pancreatic calcification which may indicate mild chronic pancreatitis. Mild peripancreatic fat stranding which may indicate mild acute interstitial pancreatitis, recommend clinical correlation. Small hepatic dome cyst, dominant right adnexal soft tissue mass which may be serosal fibroid versus right ovarian mass. Trace pericardial effusion. Was given Reglan, Benadryl, Pepcid, Tylenol IV, IV fluids,and GI cocktail. The patient stated that Compazine usually helps her. Date of service 03/21/2020 Review of Systems Review of Systems: All systems reviewed & are unremarkable except as noted in HPI and below Constitutional: Constitutional: Reports as per HPI and Reports no additional constitutional complaints Eyes: Eyes: Reports as per HPI and Reports no additional eye complaints ENT: Reports system reviewed and no additional complaints, except as documented and Reports Normal hearing present Cardiovascular: Cardiovascular: Reports no additional cardiovascular complaints Respiratory: Respiratory: Reports no additional respiratory complaints and Reports no additional respiratory complaints Gastrointestinal: Gastrointestinal: Reports as per HPI and Reports no additional gastrointestinal complaints Musculoskeletal: Musculoskeletal: Reports no additional musculoskeletal complaints Integumentary/Breasts: Skin/Breast: Reports system reviewed and no additional complaints, except as docu and Reports as per HPI Neurologic: Reports system reviewed and no additional complaints, except as documented, Reports as per HPI and Reports Normal hearing present Psychiatric: Psychiatric: Reports no additional psychiatric complaints and Reports as per HPI Endocrine: Endocrine: Reports no additional endocrine complaints Hematologic/Lymphatic: Hematologic/Lymphatic: Reports no additional hematologic/lymphatic complaints Allergic/Immunologic: Allergic/Immunologic: Reports no additional allergic/immunologic complaints [facility] Past Medical History Medical History Amputation toe left pinky toe Anemia Broken teeth CAD (coronary artery disease) Cardiomyopathy CHF (congestive heart failure) Depression with anxiety DVT (deep venous thrombosis) Fibroids Foot fracture, left Gastritis GERD (gastroesophageal reflux disease) GI bleed Heart attack x2 History of angina History of blood transfusion HTN (hypertension) Hyperlipidemia IDDM (insulin dependent diabetes mellitus) Migraine MRSA (methicillin resistant staph aureus) culture positive Nearsightedness Osteoarthritis PCOS (polycystic ovarian syndrome) Peripheral neuropathy PID (acute pelvic inflammatory disease) PVD (peripheral vascular disease) Sleep apnea Stage 3 chronic kidney disease UTI (urinary tract infection) Yeast infection Surgical History Surgical History
[2020-03-21 20:43] LABS: Glucose Point of Care 138 (65-105)
[2020-03-21] MEDS: INSULIN GLARGINE (*BKC) 100 UNITS/ML 10 UNITS SUB-Q (21:02)
[2020-03-21] MEDS: WARFARIN (*PBKC) 5 MG TABLET PO (21:02)
[2020-03-21] MEDS: METOCLOPRAMIDE HCL INJ 10 MG/2 ML VIAL IV PUSH (21:02)
[2020-03-21 22:29] LABS: Prothrombin Time 47.5 Seconds (11.1-14.7)
[2020-03-21 22:33] LABS: INR 5.2
[2020-03-22] VITALS (14 sets, daily range): BP systolic 142–154; BP diastolic 50–128; PULSE 78–107; RESP 16–20; TEMP 36.1–36.6; O2SAT 96–100
--- NOTE | 2020-03-22 | ECHO_ITS ---
Patient Info Name: Michelle Rhoades Age: 39 years : 1980 Gender: Female Ht: 64 in Wt: 230 lbs BSA: 2.22 m2 HR: 85 bpm BP: 143 / 99 mmHg Heart Rhythm: Sinus Rhythm Technical Quality: Good Exam Date: 03/22/2020 2:38 PM Exam Location: [facility] Patient Status: Inpatient Admit Date: 03/21/2020 Staff Ordering Physician: Wandy Pisano NP Chief Cardiopulmonary Technologist: Laith Loeps RDCS, RT Attending Provider: Isa Zheng PA-C Referring Physician: Aliya BETANCOURT; Exam Type: CA echo doppler color flow Study Info Indications I50.9 - Heart failure, unspecified Complete two-dimensional, color flow and Doppler transthoracic echocardiogram is performed. Summary 1. The left ventricle is moderately enlarged with normal wall thickness. There was severe global hypokinesis present, however sparing the basal posterolateral and anterolateral kyle. Visual estimation of ejection fraction is 15-20%. Global longitudinal strain was severely reduced , -2 %. 2. Right ventricular chamber dimension is mildly enlarged with moderate global dysfunction. 3. Left atrial chamber dimension is severely enlarged. 4. There is moderate mitral valve regurgitation. 5. There is mild tricuspid valve regurgitation. 6. There is mild to moderate pulmonic regurgitation. 7. Dilated inferior vena cava with <50% collapse upon inspiration consistent with elevated right atrial pressure, 15 mmHg. 8. Pulmonary pressure cannot be estimated on this study. 9. Normal sinus rhythm. Left Ventricle The left ventricle is moderately enlarged with normal wall thickness. There was severe global hypokinesis present, however sparing the basal posterolateral and anterolateral kyle. Visual estimation of ejection fraction is 15-20%. Global longitudinal strain was severely reduced , -2 %. Left ventricular chamber dimension is moderately enlarged. Left ventricular systolic function is severely reduced, estimated at 15-20%. There is no increased left ventricular wall thickness. Left ventricular septal wall motion is normal. The left ventricular diastolic function is grade II diastolic dysfunction. E/e' Empty is severely elevated. Right Ventricle Right ventricular chamber dimension is mildly enlarged with moderate global dysfunction. Right ventricular systolic function is reduced. Left Atria Left atrial chamber dimension is severely enlarged. Right Atria Right atrial chamber dimension is normal. Aortic Valve The aortic valve is trileaflet. There is mild aortic valve sclerosis. There is no aortic valve stenosis. There is trace aortic valve regurgitation. Pulmonic Valve The pulmonic valve is normal. There is no pulmonic valve stenosis. There is mild to moderate pulmonic regurgitation. Mitral Valve The mitral valve has thickened leaflets. There is no mitral valve stenosis. There is moderate mitral valve regurgitation. Tricuspid Valve The tricuspid valve leaflets are normal. There is no significant tricuspid valve stenosis. There is mild tricuspid valve regurgitation. No pulmonary hypertension, estimated pulmonary arterial systolic pressure is Empty. Pericardium/Pleural The pericardium appears normal. There is no pericardial effusion. Inferior Vena Cava Dilated inferior vena cava with <50% collapse upon inspiration consistent with elevated right atrial pressure, 15 mmHg. Aorta The aortic root size at the sinus of Valsalva is normal. The prox ascending aorta size is normal. Left
[2020-03-22] MEDS: PROCHLORPERAZINE MALEATE 5 MG TABLET PO (04:17)
[2020-03-22 06:27] LABS: Basophils Absolute Auto 0.1 K/mm3 (0.0-0.1); Basophils Percent Auto 0.6 % (0.2-1.2); Eosinophils Absolute Auto 0.1 K/mm3 (0-0.3); Eosinophils Percent Auto 0.5 % (0-4.4); Hematocrit 38.4 % (37.0-47.0); Immature Granulocyte Absolute 0.11 K/mm3 (0.00-0.031); Immature Granulocyte Percent A 0.7 % (0-0.5); Lymphocytes Absolute Auto 2.96 K/mm3 (0.9-3.2); Lymphocytes Percent Auto 19.8 % (18.3-44.2); Mean Corpuscular HGB Conc 31.3 g/dl (32-36); Mean Corpuscular Hemoglobin 27.1 pg (26-34); Mean Corpuscular Volume 86.7 fl (80-100); Mean Platelet Volume 10.6 fl (7.4-10.4); Monocytes Percent Auto 6.9 % (2.6-8.5); Neutrophils Absolute Auto 10.7 K/mm3 (1.3-6.7); Neutrophils Percent Auto 71.5 % (45.5-73.1); Nucleated Red Blood Cells Absolute Auto 0.1 K/mm3 (0.0-0.012); Nucleated Red Blood Cells Perc 0.3 % (0.0-0.2); Platelet Count Result 237 k/mm3 (150-375); Red Blood Count 4.43 M/mm3 (4.2-5.4)
[2020-03-22 06:38] LABS: Hemoglobin A1C 8.1 % (<5.7)
[2020-03-22 06:39] LABS: Prothrombin Time 51.6 Seconds (11.1-14.7)
[2020-03-22 06:42] LABS: Alanine Aminotransferase 69 U/L (4-35); Albumin Level 3.3 g/dL (3.5-5.1); Alkaline Phosphatase 85 U/L (38-126); Aspartate Amino Transferase 61 U/L (14-36); Bilirubin,Total 0.6 mg/dL (0.2-1.3); Blood Urea Nitrogen 46 mg/dL (7-17); Calcium 8.4 mg/dL (8.4-10.2); Carbon Dioxide 20 mmol/L (22-30); Chloride 107 mmol/L (98-107); Estimated CRCL calculation 36 ml/min; Estimated Glomerular Filt Rate 25; Glucose 130 mg/dL (65-105); Lipase 58 U/L (23-300); Potassium 3.8 mmol/L (3.4-5.0); Sodium 134 mmol/L (137-145)
[2020-03-22 07:36] LABS: INR 5.8
[2020-03-22 08:20] LABS: Glucose Point of Care 134 (65-105)
[2020-03-22] MEDS: PHYTONADIONE 5 MG TABLET PO (08:47)
[2020-03-22] MEDS: FLUOXETINE HCL 20 MG CAP 80 MG PO (10:20)
[2020-03-22] MEDS: CLOPIDOGREL BISULFATE 75 MG TABLET PO (10:22)
[2020-03-22] MEDS: lamoTRIgine 25 MG TABLET PO (10:22)
[2020-03-22] MEDS: metOLazone 2.5 MG TABLET PO (10:23)
[2020-03-22] MEDS: carvediloL 3.125 MG TABLET PO (10:23)
[2020-03-22] MEDS: GABAPENTIN 100 MG CAPSULE PO ×3 (10:23→17:06)
[2020-03-22] MEDS: LOSARTAN POTASSIUM 25 MG TABLET PO (10:25)
[2020-03-22] MEDS: FUROSEMIDE INJ 40 MG/4 ML VIAL IV PUSH ×2 (10:25→17:07)
[2020-03-22] MEDS: FAMOTIDINE 20 MG/2 ML VIAL IV PUSH (10:26)
[2020-03-22] MEDS: METOCLOPRAMIDE HCL INJ 10 MG/2 ML VIAL IV PUSH (10:26)
--- NOTE | 2020-03-22 11:11 | WPDGICN ---
Assessment and Plan Assessment and plan (1) Nausea and vomiting: Qualifiers: Vomiting Intractability: non-intractable Vomiting type: unspecified Qualified Code(s): R11.2 - Nausea with vomiting, unspecified Code(s): R11.2 - Nausea with vomiting, unspecified Status: Acute Assessment and Plan: Nausea and vomiting is recurrent in nature. Likely multifactorial in etiology. Perhaps related to congestive heart failure. She does have an underlying history of GE reflux and for this reason PPI will be continued. She has diabetes and diabetic gastroparesis can be considered. And perhaps related to congestive heart failure. Patient does have a history of daily marijuana use period and cyclic vomiting syndrome may need to be considered. Previous EGD in October was unremarkable but may need to be repeated should her symptoms persist. (2) Epigastric abdominal pain: Code(s): R10.13 - Epigastric pain Status: Acute Assessment and Plan: Etiology of epigastric pain remains unclear. Plan is for EGD at some point. Continue PPI. [place] diet is advised. This may be functional in nature as well. (3) Elevated LFTs: Code(s): R79.89 - Other specified abnormal findings of blood chemistry Status: Acute Assessment and Plan: Elevated LFTs are noted. Likely related to her primary disease. Suggest congestive liver secondary to or congestive heart failure. Plan is to check hepatitis serologies. If not already obtained. These will be followed. (4) DVT prophylaxis: Code(s): Z29.9 - Encounter for prophylactic measures, unspecified Status: Acute Assessment and Plan: Patient on Coumadin because of DVT in the right upper extremity. (5) Chronic renal failure, stage 3 (moderate): Code(s): N18.3 - Chronic kidney disease, stage 3 (moderate) Status: Acute (6) Diabetes: Qualifiers: Diabetes mellitus type: type 1 Diabetes mellitus complication status: with kidney complications Diabetes mellitus complication detail: with chronic kidney disease Chronic kidney disease stage: stage 3 (moderate) Qualified Code(s): E10.22 - Type 1 diabetes mellitus with diabetic chronic kidney disease; N18.3 - Chronic kidney disease, stage 3 (moderate) Code(s): E11.9 - Type 2 diabetes mellitus without complications Status: Acute (7) Congestive heart failure: Qualifiers: Heart failure chronicity: chronic Heart failure type: unspecified Qualified Code(s): I50.9 - Heart failure, unspecified Code(s): I50.9 - Heart failure, unspecified Status: Acute GI Consult Note Consult date/time: 03/22/20 11:11 HPI: Michelle Rhoades is a 39 year old female seen in evaluation at the request of the hospitalist service. Patient followed by Dr. Martinez as an outpatient. She has an underlying history of diabetes with peripheral neuropathy, peripheral vascular disease, chronic kidney disease, coronary artery disease status post previous myocardial infarction and stent placement. She was hospitalized at our hospital with gastroenteritis. In October of 2019. In the subsequent months she has been hospitalized numerous times at the [facility]. Apparently with congestive heart failure. During these hospital stays she was identified as having a DVT in the right upper extremity requiring chronic Coumadin anticoagulation. Currently she complains of ongoing nausea vomiting and shortness of breath since Thursday. Over the last 4 days she has had minimal oral intake. She also states she has been constipated with no bowel movement during this interval of time. She denies any obvious bleeding. She denies a fever. Currently she is very emotional. Complains of significant epigastric discomfort. Endoscopy in October was unremarkable. Any recent examinations and [place] are not immediately available. Review of Systems Review of Systems: All systems reviewed
[2020-03-22 12:26] LABS: Glucose Point of Care 136 (65-105)
[2020-03-22] MEDS: FERROUS SULFATE 324 MG TABLET PO ×2 (12:54→17:07)
[2020-03-22] MEDS: ASPIRIN 81 MG CHEWABLE TABLET PO (12:55)
[2020-03-22 14:03] LABS: Hepatitis B Surface Antigen Negative (Negative)
[2020-03-22 14:11] LABS: HAV RESULT Negative (Negative); Hepatitis B Core IgM Result Negative (Negative)
[2020-03-22 14:22] LABS: Hepatitis C Virus Antibody Negative (Negative)
--- NOTE | 2020-03-22 16:15 | PM.IMPN ---
Progress Note: A&P Assessment and Plan (1) Nausea and vomiting: Qualifiers: Vomiting Intractability: non-intractable Vomiting type: unspecified Qualified Code(s): R11.2 - Nausea with vomiting, unspecified Code(s): R11.2 - Nausea with vomiting, unspecified Status: Acute Assessment and Plan: The patient reported a hx of nausea and vomiting since Thursday. She has a hx of prior episodes. She has gastroparesis and is on metoclopramide. She also uses marijuana and could have cyclic vomiting as a result. She has a hx of gastroenteritis as well. She also has CHF. GI is on board. She reports that her nausea and vomiting have resolved at the time of my visit. Continue metoclopramide Continue compazine PRN Continue protonix GI is planning EGD for tomorrow (2) Elevated troponin: Code(s): R79.89 - Other specified abnormal findings of blood chemistry Status: Acute Assessment and Plan: Troponin was elevated at admission but consistent with her baseline and likely due to her chronic renal failure and congestive heart failure. Cardiology is on board and recommendations are greatly appreciated. She has no complaints of chest pain. (3) Congestive heart failure: Qualifiers: Heart failure chronicity: chronic Heart failure type: unspecified Qualified Code(s): I50.9 - Heart failure, unspecified Code(s): I50.9 - Heart failure, unspecified Status: Chronic Assessment and Plan: BNP was elevated. Echo reveals cardiomyopathy with severe left ventricular function and EF 15-20%. Her prior echo from our facility revealed EF of 50% in 2018. She is established with Dr. Rodriguez for primary cardiology. Cardiology is on board and further recommendations are greatly appreciated. Continue losartan Continue carvedilol Continue IV furosemide Monitor daily weights and strict I&O (4) Chronic renal failure, stage 3 (moderate): Code(s): N18.3 - Chronic kidney disease, stage 3 (moderate) Status: Acute Assessment and Plan: Cr is 2.2 and BUN 46. She is at her baseline. Avoid nephrotoxic agents and renally dose medications Continue to monitor (5) Anxiety and depression: Code(s): F41.9 - Anxiety disorder, unspecified; F32.9 - Major depressive disorder, single episode, unspecified Status: Chronic Assessment and Plan: Continue fluoxetine Continue lamotrigine (6) Peripheral neuropathy: Code(s): G62.9 - Polyneuropathy, unspecified Status: Chronic Assessment and Plan: Continue gabapentin (7) Hypertension, uncontrolled: Code(s): I10 - Essential (primary) hypertension Status: Acute Assessment and Plan: Poorly controlled. Blood pressures are elevated. Cardiology is on board and recommendations are greatly appreciated. Continue carvedilol and increase dose to 6.25mg Continue losartan Continue metolazone Begin hydralazine 25mg PO TID Will add hydralazine IV PRN (8) Diabetes: Qualifiers: Chronic kidney disease stage: stage 3 (moderate) Diabetes mellitus complication detail: with chronic kidney disease Diabetes mellitus complication status: with kidney complications Diabetes mellitus type: type 1 Qualified Code(s): E10.22 - Type 1 diabetes mellitus with diabetic chronic kidney disease; N18.3 - Chronic kidney disease, stage 3 (moderate) Code(s): E11.9 - Type 2 diabetes mellitus without complications Status: Acute Assessment and Plan: Blood sugars were reviewed and are at target. HbA1c was elevated at 8.1. Continue SSI Continue Accu-check's ACHS Continue hypoglycemia protocol Continue januvia [place] to monitor (9) Ovarian cyst: Code(s): N83.209 - Unspecified ovarian cyst, unspecified side Status: Acute Assessment and Plan: CT abd/pelvis revealed a soft tissue mass in the right adnexa
[2020-03-22] MEDS: ALPRAZOLAM 0.25 MG TABLET PO ×2 (17:06→22:45)
--- NOTE | 2020-03-22 17:20 | PM.GYNPNOP ---
CLOTH DOFFER - A/P Postoperative Procedures: Procedures Operation Date: 03/23/20 11:00 <No data on this case meets the specified criteria> Time Spent With Patient Time: Total time spent is greater than 50% in coordination of care (as documented) at patient's floor/unit and/or counseling patient: CLOTH DOFFER- PN:Zara Post-Op Subjective Date/time seen: 03/22/20 17:20 Interval history: 39 yo F who is admitted for intractable nausea and vomiting. Pt's medical history is complicated by diabetes, CHF, During her work up she was noted to have a cyst on her Right ovary on CT scan. Pt denies any abdominal or pelvic pain. Of note she reports a history of PCOS. She also had a history of AUB for which she had an endometrial ablation. She has not had any further vaginal bleeding since the procedure. 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 Tello. CLOTH DOFFER - PN: Obj Data Vital Signs Vital Signs: Vital Signs - 24 hr 03/21/20 17:44 03/21/20 18:00 03/21/20 19:33 Temperature 36.4 C 36.4 C Pulse Rate 69 92 92 Respiratory Rate 16 18 Blood Pressure 146/112 H 152/99 H Pulse Oximetry 100 100 03/21/20 20:00 03/21/20 22:00 03/21/20 23:24 Temperature 36.6 C Pulse Rate 92 92 94 Respiratory Rate 18 18 Blood Pressure 149/99 H Pulse Oximetry 100 99 03/21/20 23:53 03/22/20 01:44 03/22/20 04:00 Temperature 36.6 C Pulse Rate 88 88 107 H Respiratory Rate 18 18 Blood Pressure 143/99 H Pulse Oximetry 99 96 03/22/20 05:59 03/22/20 08:00 03/22/20 08:50 Temperature 36.3 C L Pulse Rate 88 90 91 Respiratory Rate 16 Blood Pressure 154/50 H Pulse Oximetry 96 03/22/20 10:00 03/22/20 10:23 03/22/20 12:00 Temperature 36.2 C L Pulse Rate 85 91 87 Respiratory Rate 18 Blood Pressure 152/128 H Pulse Oximetry 100 03/22/20 14:00 03/22/20 16:00 Temperature 36.4 C L Pulse Rate 85 84 Respiratory Rate 20 Blood Pressure 151/104 H Pulse Oximetry 100 Intake/Output Intake/Output: Intake & Output 06/01/20 06/02/20 06/03/20 06/04/20 23:59 23:59 23:59 23:59 Intake Total 100 670 Output Total 1100 Balance 100 -430 Meds/Results Medications: Active Medications Generic Name Dose Route Start Last Admin Trade Name Freq PRN Reason Stop Dose Admin Alprazolam 0.25 mg 03/22/20 16:24 03/22/20 17:06 Xanax PO 0.25 mg TID PRN Administration Anxiety Aspirin 81 mg 03/22/20 09:00 03/22/20 12:55 Aspirin Chewable PO 81 mg DAILY DEJAH Administration Carvedilol 3.125 mg 03/22/20 09:00 03/22/20 10:23 Coreg PO 3.125 mg DAILY DEJAH Administration Clopidogrel Bisulfate 75 mg 03/22/20 09:00 03/22/20 10:22 Plavix PO 75 mg DAILY DEJAH Administration Dextrose 12.5 gm 03/21/20 21:30 Dextrose 50% Syringe IV PUSH PRN PRN Hypoglycemia Protocol Ferrous Sulfate 324 mg 03/22/20 09:00 03/22/20 17:07 Ferrous Sulfate PO 324 mg BID DEJAH Administration Fluoxetine HCl 80 mg 03/22/20 09:00 03/22/20 10:20 Prozac PO 40 mg DAILY DEJAH Administration Furosemide 40 mg 03/22/20 09:00 03/22/20 17:07 Lasix Inj IV PUSH 40 mg BID DEJAH Administration Gabapentin 100 mg 03/22/20 09:00 03/22/20 17:06 Neurontin PO 100 mg TID DEJAH Administration Glucagon 1 mg 03/21/20 21:30 Glucagon For Inj IM PRN PRN Hypoglycemia Protocol Glucose 15 gm 03/21/20 21:30 Glutose 15 PO PRN PRN Hypoglycemia Protocol Hydralazine HCl 10 mg 03/22/20 16:55 Apresoline Hcl Inj IV PUSH Q8H PRN Systolic >180, Diastolic >100 Dextrose 1,000 mls @ 100 mls/hr 03/21/20 21:30 Dextrose 5% 1,000 Ml IVPB PRN PRN Hypoglycemia Protocol Insulin Aspart 2 - 5 units 03/22/20 08:00 03/22/20 17:12 Novolog SUB-Q Not Given TIDWM DEJAH Protocol Insulin Glargine 10 units 03/21/20 21:00 03/21/20 21:02 Lantus SUB-Q 10 units HS DEJAH Administration Lamotrigine 25 mg 03/22/20 09:00 03/22/20 1
--- NOTE | 2020-03-22 17:23 | WPDCN ---
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 Tello would recommend follow up in 3-6 mo for repeat US to evaluate cyst No further Mri Tech recommendations (2) Elevated LFTs: Code(s): R79.89 - Other specified abnormal findings of blood chemistry Status: Acute (3) Epigastric abdominal pain: Code(s): R10.13 - Epigastric pain Status: Acute (4) Nausea and vomiting: Qualifiers: Vomiting Intractability: non-intractable Vomiting type: unspecified Qualified Code(s): R11.2 - Nausea with vomiting, unspecified Code(s): R11.2 - Nausea with vomiting, unspecified Status: Acute (5) Elevated troponin: Code(s): R79.89 - Other specified abnormal findings of blood chemistry Status: Acute (6) Pneumonia: Code(s): J18.9 - Pneumonia, unspecified organism Status: Acute (7) Cardiomyopathy: Code(s): I42.9 - Cardiomyopathy, unspecified Status: Acute (8) Chronic renal failure, stage 3 (moderate): Code(s): N18.3 - Chronic kidney disease, stage 3 (moderate) Status: Acute (9) Peripheral neuropathy: Code(s): G62.9 - Polyneuropathy, unspecified Status: Acute (10) PVD (peripheral vascular disease): Code(s): I73.9 - Peripheral vascular disease, unspecified Status: Acute (11) Congestive heart failure: Qualifiers: Heart failure chronicity: chronic Heart failure type: unspecified Qualified Code(s): I50.9 - Heart failure, unspecified Code(s): I50.9 - Heart failure, unspecified Status: Acute (12) Elevated troponin: Code(s): R79.89 - Other specified abnormal findings of blood chemistry Status: Acute HPI Data of Consult Date/Time: 03/22/20 17:23 Requesting Physician: Isa Zheng PA-C Primary Care Provider: Braulio Martinez MD Consult Narrative Narrative: 39 yo F who is admitted for intractable nausea and vomiting. Pt's medical history is complicated by diabetes with gastroparesis, chronic marijuana use, CHF, and GERD. During her work up she was noted to have a cyst on her Right ovary on CT scan. Pt denies any abdominal or pelvic pain. Of note she reports a history of PCOS. She also had a history of AUB for which she had an endometrial ablation. She has not had any further vaginal bleeding since the procedure. 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 Tello. Review of Systems Review of Systems: All systems reviewed & are unremarkable except as noted in HPI and below PMFSH Past Medical History Medical History Amputation toe left pinky toe Anemia Broken teeth CAD (coronary artery disease) Cardiomyopathy CHF (congestive heart failure) Depression with anxiety DVT (deep venous thrombosis) Fibroids Foot fracture, left Gastritis GERD (gastroesophageal reflux disease) GI bleed Heart attack x2 History of angina History of blood transfusion HTN (hypertension) Hyperlipidemia IDDM (insulin dependent diabetes mellitus) Migraine MRSA (methicillin resistant staph aureus) culture positive Nearsightedness Osteoarthritis PCOS (polycystic ovarian syndrome) Peripheral neuropathy PID (acute pelvic inflammatory disease) PVD (peripheral vascular disease) Sleep apnea Stage 3 chronic kidney disease UTI (urinary tract infection) Yeast infection Surgical History Surgical History H/O bilateral cataract extraction H/O section H/O di
[2020-03-22 17:27] LABS: Potassium 3.5 mmol/L (3.4-5.0)
[2020-03-22 17:31] LABS: Magnesium 2.2 mg/dL (1.6-2.3)
[2020-03-22 17:33] LABS: Glucose Point of Care 140 (65-105)
--- NOTE | 2020-03-22 17:57 | WPDCN ---
Assessment and Plan Assessment and plan (1) Cardiomyopathy: Code(s): I42.9 - Cardiomyopathy, unspecified Status: Acute Assessment and Plan: Patient has a cardiomyopathy with severe left ventricular dysfunction and focal wall motion abnormalities, EF estimated to be 15-20%. This is a significant drop compared to our last echo from 2018 where the EF was 50%. Likely she has had some echoes done at [facility] since apparently she has had several admissions for CHF, but she has no recall of them. Uncontrolled hypertension may be playing a significant role. She is on minimal CHF medications. Despite the n&V, she has been getting her meds and BPis still high. We certainly can titrate the carvedilol, and add hydralazine/nitrates. Other treatments such as increasing her ARB, changing to Entresto, or adding spironolactone would have to be done carefully and she would need frequent re-evaluations by her usual physicians. She also should be evaluated for progression of her CAD eventually if the left ventricular function does not improve with improvement of blood pressure. With her CKD, a cardiac catheterization should be avoided if possible. PRUDENCIO w/ her usual autocad detailer in the near future. (2) Chronic combined systolic and diastolic CHF (congestive heart failure): Code(s): I50.42 - Chronic combined systolic (congestive) and diastolic (congestive) heart failure Status: Acute Assessment and Plan: Apparently multiple admissions to [facility] for CHF recently. Patient appears euvolemic at this time. (3) Uncontrolled hypertension: Code(s): I10 - Essential (primary) hypertension Status: Acute Assessment and Plan: On minimal medications. Increase carvedilol. Add hydralazine/nitrates (4) CAD (coronary artery disease): Code(s): I25.10 - Atherosclerotic heart disease of [place] coronary artery without angina pectoris Status: Acute Assessment and Plan: History of CAD, no angina, no acute ischemic changes on her EKG. This problem appears stable. Continue anti-platelet agent(s). She is currently on triple therapy with aspirin, clopidogrel, and Eliquis. Not sure why she needs all 3 but her regular autocad detailer may have an explanation. Patient tells me she does take atorvastatin even though it is not on her medication list. Will add atorvastatin 40 mg daily. (5) CKD stage 4 due to type 2 diabetes mellitus: Code(s): E11.22 - Type 2 diabetes mellitus with diabetic chronic kidney disease; N18.4 - Chronic kidney disease, stage 4 (severe) Status: Acute Assessment and Plan: Followed by Dr. Hernandez (6) Chronic anticoagulation: Code(s): Z79.01 - longterm (current) use of anticoagulants Status: Acute Assessment and Plan: Has been anticoagulated for the last 3 months because of a right upper extremity DVT after PICC line placement. INR today was 5.8. Warfarin has been on hold. HPI Data of Consult Date/Time: 03/22/20 17:57 Requesting Physician: Isa Zheng PA-C Primary Care Provider: Braulio Martinez MD Consult Narrative Narrative: Date of service: 03/22/2020 Michelle Rhoades is a 39 year old female whom we are asked to see at the request of the hospitalists for our advice and opinion regarding her cardiomyopathy, in consultation. Her echo today showed her ejection fraction had dropped to 15-20%. The patient is usually seen by Dr. Rodriguez at [facility] for heart disease. Her primary care doctors Dr. Martinez and her renal docto is Dr. Hernandez. The patient reports that she has had multiple hospitalizations for congestive heart failure since October at [facility]. The last was a 5 day hospitalization about 4 weeks ago. She a
[2020-03-22] MEDS: INSULIN GLARGINE (*BKC) 100 UNITS/ML 10 UNITS SUB-Q (20:38)
[2020-03-22] MEDS: hydrALAZINE HCL 25 MG TABLET PO (20:40)
[2020-03-22 21:23] LABS: Glucose Point of Care 145 (65-105)
[2020-03-23] VITALS (14 sets, daily range): BP systolic 136–155; BP diastolic 86–105; PULSE 71–86; RESP 14–22; TEMP 36.1–36.6; O2SAT 97–100
[2020-03-23 04:35] LABS: Basophils Absolute Auto 0.1 K/mm3 (0.0-0.1); Basophils Percent Auto 0.7 % (0.2-1.2); Eosinophils Absolute Auto 0.2 K/mm3 (0-0.3); Eosinophils Percent Auto 1.8 % (0-4.4); Hematocrit 40.2 % (37.0-47.0); Hemoglobin 12.7 g/dL (12.0-15.0); Immature Granulocyte Absolute 0.08 K/mm3 (0.00-0.031); Immature Granulocyte Percent A 0.6 % (0-0.5); Lymphocytes Absolute Auto 4.36 K/mm3 (0.9-3.2); Lymphocytes Percent Auto 32.2 % (18.3-44.2); Mean Corpuscular HGB Conc 31.6 g/dl (32-36); Mean Corpuscular Hemoglobin 27.1 pg (26-34); Mean Corpuscular Volume 85.9 fl (80-100); Mean Platelet Volume 10.6 fl (7.4-10.4); Monocytes Percent Auto 7.7 % (2.6-8.5); Neutrophils Absolute Auto 7.7 K/mm3 (1.3-6.7); Nucleated Red Blood Cells Absolute Auto 0.1 K/mm3 (0.0-0.012); Nucleated Red Blood Cells Perc 0.4 % (0.0-0.2); Platelet Count Result 256 k/mm3 (150-375); Red Blood Count 4.68 M/mm3 (4.2-5.4); Red Cell Distribution Width 21.1 % (11.5-14.5); White Blood Count 13.5 K/mm3 (4.5-10.0)
[2020-03-23 04:47] LABS: Alanine Aminotransferase 67 U/L (4-35); Albumin Level 3.4 g/dL (3.5-5.1); Alkaline Phosphatase 83 U/L (38-126); Aspartate Amino Transferase 41 U/L (14-36); Bilirubin,Total 0.8 mg/dL (0.2-1.3); Blood Urea Nitrogen 45 mg/dL (7-17); Calcium 8.7 mg/dL (8.4-10.2); Carbon Dioxide 28 mmol/L (22-30); Chloride 102 mmol/L (98-107); Estimated CRCL calculation 33 ml/min; Estimated Glomerular Filt Rate 22; Glucose 90 mg/dL (65-105); Potassium 3.1 mmol/L (3.4-5.0); Sodium 136 mmol/L (137-145)
[2020-03-23 05:08] LABS: Macrocytosis 1+ (NORMAL); Microcytosis 1+ (NORMAL); Platelet Estimate Adequate (Adequate)
[2020-03-23 05:17] LABS: INR 2.4
--- NOTE | 2020-03-23 07:49 | WPDANESEPPF ---
Anes - Initial Pre Proc Eval Procedure: Operation Date: 03/23/20 11:00 Proposed Procedures p Esophagogastroduodenoscopy - Reid Mujica MD Date/Time: 03/23/20 07:49 Surgeon: Isa Zheng PA-C Pre Op Diagnosis: Elevated troponin/nausea and vomiting/CHF Patient Data Age: 39 Gender: F Height: 1.63 m Weight: 103.2 kg Last Vital Signs Temp 36.1 C L 03/23/20 04:00 Pulse 71 03/23/20 06:00 Resp 18 03/23/20 04:00 BP 142/86 H 03/23/20 04:00 Pulse Ox 98 03/23/20 04:00 Allergies Allergy/AdvReac Type Severity Reaction Status Date / Time latex Allergy Mild Blister Verified 03/23/20 11:00 adhesive tape AdvReac Unknown Blister Verified 03/23/20 11:00 Home Medications Medication Instructions Recorded Confirmed Type ferrous sulfate 324 mg PO BID 08/18/19 03/21/20 History fluoxetine 80 mg PO BID 08/18/19 03/21/20 History gabapentin 100 mg PO TID 08/18/19 03/21/20 History lamotrigine 25 mg PO DAILY 08/18/19 03/21/20 History aspirin 81 mg PO DAILY 03/21/20 03/21/20 History carvedilol 3.125 mg PO DAILY 03/21/20 03/21/20 History clopidogrel 75 mg PO DAILY 03/21/20 03/21/20 History furosemide 80 mg PO DAILY 03/21/20 03/21/20 History insulin glargine [Lantus Solostar 10 unit SUBCUT HS 03/21/20 03/21/20 History U-100 Insulin] losartan 25 mg PO DAILY 03/21/20 03/21/20 History metoclopramide HCl [Reglan] 5 mg PO TID 03/21/20 03/21/20 History metolazone 2.5 mg PO DAILY 03/21/20 03/21/20 History sitagliptin [Januvia] 100 mg PO DAILY 03/21/20 03/21/20 History warfarin 5 mg PO HS 03/21/20 03/21/20 History Laboratory Tests 03/22/20 03/22/20 03/22/20 06:07 08:04 11:39 WBC RBC Hgb Hct MCV MCH MCHC RDW Plt Count MPV Immature Gran % (Auto) Neut % (Auto) Lymph % (Auto) Gates % (Auto) Eos % (Auto) Baso % (Auto) Lymph # (Auto) Gates # (Auto) Eos # (Auto) Baso # (Auto) Abs Immat Gran (auto) Absolute Neuts (auto) Absolute Nucleated RBC Nucleated RBC % Platelet Estimate Microcytosis Macrocytosis PT INR Sodium Potassium Chloride Carbon Dioxide BUN Creatinine Estim Creat Clear Calc Estimated GFR Glucose POC Capillary Glucose 134 mg/dl H mg/dl 136 mg/dl H mg/dl (65-105) (65-105) Calcium Magnesium Total Bilirubin AST ALT Alkaline Phosphatase Total Protein Albumin Hepatitis A IgM Ab Negative (Negative) Hep Bs Antigen Negative (Negative) Hep B Core IgM Ab Negative (Negative) Hepatitis C Ab Screen Negative (Negative) 03/22/20 03/22/20 03/22/20 16:54 17:14 17:14 WBC RBC Hgb Hct MCV MCH MCHC RDW Plt Count MPV Immature Gran % (Auto) Neut % (Auto) Lymph % (Auto) Gates % (Auto) Eos % (Auto) Baso % (Auto) Lymph # (Auto) Gates # (Auto) Eos # (Auto) Baso # (Auto) Abs Immat Gran (auto) Absolute Neuts (auto) Absolute Nucleated RBC Nucleated RBC % Platelet Estimate Microcytosis Macrocytosis PT INR Sodium Potassium 3.5 mmol/L mmol/L (3.4-5.0) Chloride Carbon Dioxide BUN Creatinine
[2020-03-23 08:36] LABS: Glucose Point of Care 93 (65-105)
[2020-03-23] MEDS: hydrALAZINE HCL 25 MG TABLET PO ×2 (09:02→13:24)
[2020-03-23] MEDS: ALPRAZOLAM 0.25 MG TABLET PO (09:02)
[2020-03-23] MEDS: carvediloL 6.25 MG TABLET PO (09:03)
--- NOTE | 2020-03-23 10:38 | PM.PNCARD ---
Progress Note: A&P Additional Plan 39-year-old lady with ischemic heart disease with very low ejection fraction, ischemic cardiomyopathy. We will advanced the CHF medications even though she is not volume overloaded or decompensated she is rather hypertensive. Carvedilol increased yesterday of per Dr. Mark. I will advance her losartan dosage today to 50 mg. Her cardiovascular status is stable and my perspective she can be discharged when she is finished with her GI evaluation. The patient indicated that her nursing staff at indicated she requires cardiac approval for discharge which seems strange since she is not really admitted for decompensated cardiac problem. For this reason I wanted to make this clear in my progress note that she is stable for discharge from my perspective and follow-up is already scheduled and planned with her established batch operator separate from our practice Tank Valdivia MD [facility] Subjective Date/time seen: Date of service: 03/23/20 10:38 Interval history: Follow-up visit in 39-year-old lady who unfortunately has a diagnosis of ischemic heart disease with ischemic cardiomyopathy. She was hospitalized for treatment of symptomatic gastroparesis presumably related to her diabetes We have been consulted to optimize medical treatment for her cardiomyopathy. Patient has no current cardiovascular complaints despite low ejection fraction Exam Const: General: comfortable and no acute distress Other: Obese white female comfortable cooperative seated in bed. HENMT: Mouth: Yes moist mucous membranes Eyes: Sclera: sclerae normal Pupils: Equal, round and reactive pupils present Neck: Neck: supple and no JVD Thyroid: thyroid normal Other: Carotid upstrokes are normal bilaterally Resp: Effort & Inspection: normal respiratory effort Auscultation: clear to auscultation bilaterally Cardio: Rate: regular rate Rhythm: regular rhythm Other: PMI difficult to palpate because of the patient's size, no obvious murmur or gallop GI: Auscultation: normal bowel sounds Skin: General skin exam: normal color Neuro: Cognition (Neuro): normal cognition Extrem: Other: Warm and well perfused minimal pretibial edema Objective Data Vital Signs Vital Signs: Vital Signs - 24 hr 03/22/20 12:00 03/22/20 14:00 03/22/20 16:00 Temperature 36.2 C L 36.4 C L Pulse Rate 87 85 84 Respiratory Rate 18 20 Blood Pressure 152/128 H 151/104 H Pulse Oximetry 100 100 03/22/20 19:38 03/22/20 20:00 03/22/20 22:00 Temperature 36.1 C L Pulse Rate 86 82 80 Respiratory Rate 20 Blood Pressure 144/100 H Pulse Oximetry 97 03/22/20 23:59 03/23/20 00:00 03/23/20 02:00 Temperature 36.1 C L Pulse Rate 78 78 71 Respiratory Rate 20 Blood Pressure 142/89 H Pulse Oximetry 98 03/23/20 04:00 03/23/20 06:00 03/23/20 08:00 Temperature 36.1 C L 36.6 C Pulse Rate 75 71 79 Respiratory Rate 18 18 Blood Pressure 142/86 H 149/104 H Pulse Oximetry 98 100 03/23/20 09:03 03/23/20 10:00 Temperature Pulse Rate 77 76 Respiratory Rate Blood Pressure Pulse Oximetry Intake/Output Intake/Output: Intake & Output 03/20/20 03/21/20 03/22/20 03/23/20 23:59 23:59 23:59 23:59 Intake Total 100 1720 500 Output Total 2525 2100 Balance 100 -805 -1600 Meds/Results Medications: Active Medications Generic Name Dose Route Start Last Admin Trade Name Freq PRN Reason Stop Dose Admin Alprazolam 0.25 mg 03/22/20 16:24 03/23/20 09:02 Xanax PO 0.25 mg TID PRN Administration Anxiety Aspirin 81 mg 03/22/20 09:00 03/22/20 12:55 Aspirin Chewable PO 81 mg DAILY DEJAH Administration Atorvastatin Calcium 40 mg 03/23/20 09:00 Lipitor PO DAILY DEJAH Carvedilol 6.25 mg 03/23/20 09:00 03/23/20 09:03 Coreg PO 6.25 mg DAILY DEJAH Administration Clopidogrel Bisulfate 75 mg 03/22/20 09:00 03/22/20 10:22 Plavix PO 75 mg DAILY [facility] Administration Dex
--- NOTE | 2020-03-23 10:50 | PC.NURSE ---
Patient to GI Lab via stretcher. Report given to JIM Youngblood.
[2020-03-23] MEDS: LACTATED RINGERS 1,000 ML 150 ML IV CONT (11:16)
[2020-03-23] MEDS: BENZOCAINE (*SP) 60 ML SPRAY CAN (HURRICAINE) 1 SPRAY MUCOUS MEM (12:30)
[2020-03-23 12:59] LABS: Glucose Point of Care 93 (65-105)
--- NOTE | 2020-03-23 13:13 | PC.NURSE ---
Patient returned to room following EGD. Report received from JIM Quach.
[2020-03-23] MEDS: POTASSIUM CHLORIDE 20 MEQ TABLET 40 MEQ PO (13:23)
[2020-03-23] MEDS: FLUOXETINE HCL 20 MG CAP 40 MG PO (13:23)
[2020-03-23] MEDS: LOSARTAN POTASSIUM 50 MG TABLET PO (13:23)
[2020-03-23] MEDS: PANTOPRAZOLE 40 MG TABLET PO (13:23)
[2020-03-23] MEDS: CLOPIDOGREL BISULFATE 75 MG TABLET PO (13:24)
[2020-03-23] MEDS: lamoTRIgine 25 MG TABLET PO (13:24)
[2020-03-23] MEDS: FERROUS SULFATE 324 MG TABLET PO (13:24)
[2020-03-23] MEDS: ATORVASTATIN 40 MG TABLET PO (13:24)
[2020-03-23] MEDS: GABAPENTIN 100 MG CAPSULE PO (13:24)
[2020-03-23] MEDS: ISOSORBIDE MONONITRATE 15 MG TAB.ER.24H PO (13:25)
[2020-03-23] MEDS: ASPIRIN 81 MG CHEWABLE TABLET PO (13:34)
[2020-03-23] MEDS: FUROSEMIDE 80 MG TABLET PO (13:34)
--- NOTE | 2020-03-23 15:01 | PM.DS ---
DS: Admitting Diagnosis Admitting Diagnosis Admitting Diagnosis: Nausea with vomiting, unspecified DS: Discharge Diagnosis Discharge Diagnosis (1) Nausea and vomiting: Qualifiers: Vomiting Intractability: non-intractable Vomiting type: unspecified Qualified Code(s): R11.2 - Nausea with vomiting, unspecified Code(s): R11.2 - Nausea with vomiting, unspecified Status: Resolved (2) Elevated troponin: Code(s): R79.89 - Other specified abnormal findings of blood chemistry Status: Acute (3) Congestive heart failure: Qualifiers: Heart failure chronicity: chronic Heart failure type: unspecified Qualified Code(s): I50.9 - Heart failure, unspecified Code(s): I50.9 - Heart failure, unspecified Status: Chronic (4) Chronic renal failure, stage 3 (moderate): Code(s): N18.3 - Chronic kidney disease, stage 3 (moderate) Status: Acute (5) Anxiety and depression: Code(s): F41.9 - Anxiety disorder, unspecified; F32.9 - Major depressive disorder, single episode, unspecified Status: Chronic (6) Peripheral neuropathy: Qualifiers: Peripheral neuropathy type: polyneuropathy, unspecified Qualified Code(s): G62.9 - Polyneuropathy, unspecified Code(s): G62.9 - Polyneuropathy, unspecified Status: Chronic (7) Hypertension, uncontrolled: Code(s): I10 - Essential (primary) hypertension Status: Acute (8) Diabetes: Qualifiers: Chronic kidney disease stage: stage 3 (moderate) Diabetes mellitus complication detail: with chronic kidney disease Diabetes mellitus complication status: with kidney complications Diabetes mellitus type: type 1 Qualified Code(s): E10.22 - Type 1 diabetes mellitus with diabetic chronic kidney disease; N18.3 - Chronic kidney disease, stage 3 (moderate) Code(s): E11.9 - Type 2 diabetes mellitus without complications Status: Acute (9) Ovarian cyst: Qualifiers: Laterality: right Qualified Code(s): N83.201 - Unspecified ovarian cyst, right side Code(s): N83.209 - Unspecified ovarian cyst, unspecified side Status: Acute (10) CAD (coronary artery disease): Qualifiers: Associated angina: angina presence unspecified Coronary Disease-Associated Artery/Lesion type: [place] artery [place] vs. transplanted heart: [place] heart Qualified Code(s): I25.10 - Atherosclerotic heart disease of [place] coronary artery without angina pectoris Code(s): I25.10 - Atherosclerotic heart disease of [place] coronary artery without angina pectoris Status: Acute (11) Chronic anticoagulation: Code(s): Z79.01 - extermination inspector (current) use of anticoagulants Status: Chronic (12) Non-sustained ventricular tachycardia: Code(s): I47.2 - Ventricular tachycardia Status: Resolved DS: Summary Hospital Course Reason for hospitalization: Abdominal pain, nausea, and vomiting Hospital Course: Mrs. Rhoades is a 39 y.o. female with PMH significant for gastroparesis, cardiomyopathy with combined systolic and diastolic CHF, CAD, GERD, LOS, CKD stage III, T2DM, hypertension, hyperlipidemia, and hx of RUE DVT on anticoagulation who presented to the ED with c/o nausea, vomiting, and epigastric abdominal pain. Initial workup in the ED revealed WBC 17,300, Hb 12.5, Hct 39.4, platelets 282, sodium 135, potassium 4.0, chloride 104, CO2 22, BUN 49, Cr 2.3, glucose 191, PT 41.3, INR 4.4, APTT 36.1, BNP >49661, lactic acid 1.5, AST 45, ALT 42, ALP 99, troponin 0.091 with flat trend, CRP 1.0 and lipase 164. CXR revealed cardiomegaly and no infiltrate, consolidation, effusion, or pulmonary congestion. CT abd/pelvis revealed a solitary punctate calcification with mild fat stranding, small hepatic cyst, prominent right adnexal soft tissue mass, and cardiomegaly with trace pericardial effusion. She was treated with IV lasix, IV antiemetics, IV analgesics, IV pepcid, and GI reed
== END 2020-03-23 15:37 | disposition home health service (06) ==
LOC: ANHED 15:59 → ANHIMU 16:34
PROVIDERS: Internal Medicine Gastroenterology; Nurse Practitioner; Physician Assistant; Admitting Provider Family Medicine; Emergency Provider Emergency Medicine; PCP Family Medicine; Visit Provider Physician Assistant
PROC: 0DJ08ZZ Inspection of Upper Intestinal Tract, Via Natural or Artificial Opening Endoscopic (ICD-10-PCS; CPT 43235; principal; 2020-03-23 11:00)
DX: E10.43 Type 1 diabetes mellitus with diabetic autonomic (poly)neuropathy (principal); K31.84 Gastroparesis; R79.89 Other specified abnormal findings of blood chemistry; E10.22 Type 1 diabetes mellitus with diabetic chronic kidney disease; I13.0 Hypertensive heart and chronic kidney disease with heart failure and stage 1 through stage 4 chronic kidney disease, or unspecified chronic kidney disease; N18.3 Chronic kidney disease, stage 3 (moderate); I50.42 Chronic combined systolic (congestive) and diastolic (congestive) heart failure; E10.42 Type 1 diabetes mellitus with diabetic polyneuropathy; E10.51 Type 1 diabetes mellitus with diabetic peripheral angiopathy without gangrene; N83.201 Unspecified ovarian cyst, right side; G47.33 Obstructive sleep apnea (adult) (pediatric); E78.5 Hyperlipidemia, unspecified; I25.10 Atherosclerotic heart disease of native coronary artery without angina pectoris; I25.2 Old myocardial infarction; I25.5 Ischemic cardiomyopathy; F41.8 Other specified anxiety disorders; F12.90 Cannabis use, unspecified, uncomplicated; Z79.4 Long term (current) use of insulin; Z79.01 Long term (current) use of anticoagulants; Z86.718 Personal history of other venous thrombosis and embolism
CPT/HCPCS: 43239; 36415; 71046; 74176; 76830; 76856; 80053; 80074; 81001; 81025; 83036; 83605; 83690; 83735; 83880; 84132; 84443; 84484; 85025; 85610; 85730; 86140; 87081; 87086; 87088; 93005; 93306; 93970; 96365; 96375; 96376; 99285; A9270; C9113; G0378; G0379; J0131; J1200; J1815; J1940; J2060; J2765; J7040; J7120

== ENCOUNTER 2020-05-21 10:50 | Emergency (ER) | payer OTHER, SELFPAY ==
--- NOTE | ~2020-05-21 | CT_ITS ---
EXAMINATION: CT abdomen pelvis wo con DATE: 05/21/2020 14:00 INDICATION: Nausea and vomiting. Gastroparesis. TECHNIQUE: Computed tomography (CT) of the abdomen and pelvis was performed without intravenous contr ast. Automated exposure control and iterative reconstruction technique were employed. The dose-length product was 1544.09 mGy-cm. COMPARISON: 03/21/2020 and 11/05/2019 FINDINGS: Change to perhaps slight decrease in size of a 2.0 x 1.3 cm nodular density at the right posterior carvalho lcus and a small more bandlike region of likely atelectasis/scarring and more medially at the azygos esophageal recess of the posterior sulcus. The earlier patchy groundglass opacities have resolved. Mi ld cardiomegaly. Unchanged small pericardial effusion. Trace right pleural effusion. Liver, gallbladd er, spleen, bilateral adrenal glands are normal. There are couple tiny dystrophic calcifications in the body of the pancreas consistent with chronic pancreatitis. Again seen is subtle stranding at the root of the mesentery and posterior the pancreas could not exclude acute interstitial pancreatitis. B ilateral kidneys are normal with chronic nonspecific moderate bilateral perinephric stranding. Small amount of ascites scattered throughout the abdomen and pelvis. There are few scattered colonic divert icula without adjacent inflammatory change to suggest diverticulitis. No bowel obstruction. Normal ap pendix. There is a new small intraluminal metallic density measuring up to 10 mm in maximal diameter at the cecum. Bladder, uterus and left adnexa are unremarkable. Again seen is asymmetric enlargement of the right ovary which measures 4.9 x 4.1 cm which contains several anechoic cysts on intervening u ltrasound dated 03/22/2020. Mild scattered body wall edema in the abdomen and pelvis. Again seen are se veral subcutaneous nodules along the anterior wall of the pelvis likely representing injection granul omata. IMPRESSION: 1. Couple tiny dystrophic pancreatic calcification consistent with chronic pancreatitis with possible unchanged mild peripancreatic stranding and would correlate with amylase and lipase levels to exclud e acute interstitial pancreatitis. 2. Small amount of ascites and trace right pleural effusion. 3. Indeterminate small intraluminal metallic density at the cecum which is new since the prior study which could represent either an ingested foreign body or new surgical clip. Correlate with clinical h istory. 4. Cardiomegaly and unchanged small pericardial effusion. 5. No change to perhaps slight decrease in size of a 2.0 x 1.3 similar nodular density at the posteri or sulcus of the right lower lobe most likely either infectious or inflammatory in etiology given sergo t this is relatively new with no correlate on study dated 11/05/2019. Recommend follow-up noncontrast chest CT in 3-6 months. Reviewed, dictated and finalized at location A. IMPRESSION: 1. Couple tiny dystrophic pancreatic calcification consistent with chronic panc reatitis with possible unchanged mild peripancreatic stranding and would correl ate with amylase and lipase levels to exclude acute interstitial pancreatitis. 2. Small amount of ascites and trace right pleural effusion. 3. Indeterminate small intraluminal metallic density at the cecum which is new since the prior study which could represent either an ingested foreign body or new surgical clip. Correlate with clinical history. 4. Cardiomegaly and unchanged small pericardial effusion. 5. No change to perhaps slight decrease in size of a 2.0 x 1.3 similar nodular density at the posterior sulcus of the right lower lobe most likely either infe ctious or inflammatory in etiology given that this is relatively new with no co rrelate on study dated 11/05/2019. Recommend follow
[2020-05-21 11:02] VITALS: BP 154/123; PULSE 86; RESP 16; TEMP 36.8; O2SAT 100
[2020-05-21 11:12] VITALS: BP 166/128; PULSE 88; RESP 20; O2SAT 99
[2020-05-21 12:09] LABS: Basophils Absolute Auto 0.1 K/mm3 (0.0-0.1); Basophils Percent Auto 0.8 % (0.2-1.2); Eosinophils Percent Auto 0.1 % (0-4.4); Hematocrit 42.4 % (37.0-47.0); Hemoglobin 13.5 g/dL (12.0-15.0); Immature Granulocyte Absolute 0.12 K/mm3 (0.00-0.031); Immature Granulocyte Percent A 0.7 % (0-0.5); Immature Platelet Fraction Pct 3.1 % (0.9-11.2); Lymphocytes Absolute Auto 2.98 K/mm3 (0.9-3.2); Lymphocytes Percent Auto 17.4 % (18.3-44.2); Mean Corpuscular HGB Conc 31.8 g/dl (32-36); Mean Corpuscular Hemoglobin 28.8 pg (26-34); Mean Corpuscular Volume 90.6 fl (80-100); Mean Platelet Volume 11.1 fl (7.4-10.4); Monocytes Absolute Auto 1.3 K/mm3 (0.1-0.6); Monocytes Percent Auto 7.5 % (2.6-8.5); Neutrophils Absolute Auto 12.6 K/mm3 (1.3-6.7); Neutrophils Percent Auto 73.5 % (45.5-73.1); Nucleated Red Blood Cells Absolute Auto 0.1 K/mm3 (0.0-0.012); Nucleated Red Blood Cells Perc 0.5 % (0.0-0.2); Platelet Count Result 225 k/mm3 (150-375); Red Blood Count 4.68 M/mm3 (4.2-5.4); Red Cell Distribution Width 16.7 % (11.5-14.5); White Blood Count 17.1 K/mm3 (4.5-10.0)
--- NOTE | 2020-05-21 12:21 | PC.NURSE ---
unable to obtain iv access after multiple attempts by several rns. vascular access nurse called to attempt
[2020-05-21 12:22] LABS: Alanine Aminotransferase 73 U/L (4-35); Albumin Level 3.9 g/dL (3.5-5.1); Alkaline Phosphatase 100 U/L (38-126); Aspartate Amino Transferase 68 U/L (14-36); Bilirubin,Total 0.7 mg/dL (0.2-1.3); Blood Urea Nitrogen 51 mg/dL (7-17); Calcium 8.8 mg/dL (8.4-10.2); Carbon Dioxide 21 mmol/L (22-30); Chloride 105 mmol/L (98-107); Estimated CRCL calculation 32 ml/min; Estimated Glomerular Filt Rate 21; Glucose 241 mg/dL (65-105); Lipase 104 U/L (23-300); Sodium 136 mmol/L (137-145)
[2020-05-21] MEDS: SODIUM CHLORIDE 0.9% IV 1,000 ML 999 ML IV CONT (12:55)
[2020-05-21] MEDS: METOCLOPRAMIDE HCL INJ 10 MG/2 ML VIAL IV PUSH (12:55)
[2020-05-21 12:56] VITALS: BP 177/94; PULSE 85; RESP 18; O2SAT 99
[2020-05-21 13:38] LABS: Add Urine Microscopic? YES; Appearance Urine Clear (Clear); Bacteria Urine Trace /hpf; Bilirubin Urine Negative (Negative); Blood Urine 1+ (Negative); Color Urine Yellow (Yellow); Glucose Urine UA 1+ mg/dL (Negative); Ketones Urine Negative (Negative); Leukocyte Esterase Ur Negative LEU/UL (Negative); Mucus Urine Rare /lpf; Nitrate Urine Negative (Negative); Protein Urine 3+ mg/dL (Negative); RBC Urine 0-2 /hpf (0-2); Specific Grav Ur 1.017 (1.001-1.035); Squamous Epithelial Cell Urine Many /hpf (Few); Urobilinogen Urine Negative mg/dL (<2.0)
[2020-05-21] MEDS: MORPHINE SULFATE 4 MG/ML INJ IV PUSH (14:10)
[2020-05-21 14:12] VITALS: BP 167/99; PULSE 72; RESP 18; O2SAT 99
--- NOTE | 2020-05-21 14:21 | ED.NAVMDI ---
HPI - Nausea/Vomiting/Diarrhea General Chief complaint: Nausea/Vomiting/Diarrhea Stated complaint: N/V WEAKNESS X3D HX GASTROPAREISIS Time Seen by Provider: 05/21/20 11:29 History of Present Illness HPI Narrative: Patient is a 39-year-old female with history of gastroparesis and some cyclic vomiting who presents ER with vomiting. Symptoms began 3 days ago. She was seen at [facility]. She reports they performed blood work and then discharged her home. She is unsure what her results were. She reports today the vomiting worsened and is accompanied by upper abdominal discomfort. No diarrhea/fever/chills/sweats. Related Data Home Medications Medication Instructions Recorded Confirmed ferrous sulfate 324 mg PO BID 08/18/19 03/21/20 gabapentin 100 mg PO TID 08/18/19 03/21/20 lamotrigine 25 mg PO DAILY 08/18/19 03/21/20 Januvia 100 mg PO DAILY 03/21/20 03/21/20 Lantus Solostar U-100 Insulin 10 unit SUBCUT 03/21/20 03/21/20 aspirin 81 mg PO DAILY 03/21/20 03/21/20 clopidogrel 75 mg PO DAILY 03/21/20 03/21/20 furosemide 40 mg PO DAILY 03/21/20 03/23/20 metoclopramide HCl [Reglan] 5 mg PO TID 03/21/20 03/21/20 warfarin 5 mg PO HS 03/21/20 03/21/20 Allergies Allergy/AdvReac Type Severity Reaction Status Date / Time latex Allergy Mild Blister Verified 03/23/20 11:00 adhesive tape AdvReac Unknown Blister Verified 03/23/20 11:00 Review of Systems Review of Systems: All systems reviewed & are unremarkable except as noted in HPI and below Constitutional: Constitutional: Denies chills, Denies fever(s) and Denies weakness ENT: Denies nasal congestion and Denies sore throat Cardiovascular: Cardiovascular: Denies chest pain and Denies radiating jaw, neck or arm pain Respiratory: Respiratory: Denies cough and Denies dyspnea Gastrointestinal: Gastrointestinal: Reports abdominal pain, Denies diarrhea, Reports nausea and Reports vomiting [facility] Past Medical History Medical History (Updated 05/21/20 @ 15:00 by Jose Badillo MD) Amputation toe left pinky toe Anemia Broken teeth CAD (coronary artery disease) 2013 catheterization: Occluded large diagonal, 50% stenosis of the circumflex 2019: 1 2 stents placed, [facility] in [place] Cardiomyopathy CHF (congestive heart failure) Chronic combined systolic and diastolic CHF (congestive heart failure) Depression with anxiety DVT (deep venous thrombosis) Fibroids Foot fracture, left Gastritis GERD (gastroesophageal reflux disease) GI bleed Heart attack x2 History of angina History of blood transfusion HTN (hypertension) Hyperlipidemia IDDM (insulin dependent diabetes mellitus) Migraine MRSA (methicillin resistant staph aureus) culture positive Nearsightedness Obesity Osteoarthritis PCOS (polycystic ovarian syndrome) Peripheral neuropathy PID (acute pelvic inflammatory disease) PVD (peripheral vascular disease) Sleep apnea Stage 3 chronic kidney disease UTI (urinary tract infection) Yeast infection Surgical History Surgical History H/O bilateral cataract extraction H/O section H/O dilation and curettage H/O hand surgery left tendon repair H/O tubal ligation History of cardiac cath 2 stents Hx of angioplasty Family History Family History (Updated 03/22/20 @ 18:11 by Meli Mark MD) Mother Diabetes mellitus Father , age 56 of [place] Heart disease CAD, mi, CHF Social History Social History (Updated 03/22/20 @ 18:11 by Meli Mark MD) Social History: , has an 8-year-old son and 6-year-old daughter. Smoking status: Never smoker Alcohol intake: never Substance use: current Substance use type: marijuana Last use: 03/19/2020 Gender identity (if verbalized by the patient): Female Spiritual care concerns: No Agree to blood products: Yes Exam Narrative: Exam Narrative: GENERAL: Uncomfortable appearing, ov
[2020-05-21 15:28] VITALS: BP 180/96; PULSE 78; RESP 20; O2SAT 99
== END 2020-05-21 15:29 | disposition home or self-care (01) ==
PROVIDERS: Emergency Provider Emergency Medicine; PCP Family Medicine
DX: E11.43 Type 2 diabetes mellitus with diabetic autonomic (poly)neuropathy (principal); K31.84 Gastroparesis; Z79.4 Long term (current) use of insulin; Z79.84 Long term (current) use of oral hypoglycemic drugs; E11.22 Type 2 diabetes mellitus with diabetic chronic kidney disease; I13.0 Hypertensive heart and chronic kidney disease with heart failure and stage 1 through stage 4 chronic kidney disease, or unspecified chronic kidney disease; N18.3 Chronic kidney disease, stage 3 (moderate); I50.40 Unspecified combined systolic (congestive) and diastolic (congestive) heart failure; Z79.01 Long term (current) use of anticoagulants; Z86.718 Personal history of other venous thrombosis and embolism; K21.9 Gastro-esophageal reflux disease without esophagitis; I25.2 Old myocardial infarction; E78.5 Hyperlipidemia, unspecified; Z86.14 Personal history of Methicillin resistant Staphylococcus aureus infection; E28.2 Polycystic ovarian syndrome; E11.42 Type 2 diabetes mellitus with diabetic polyneuropathy; E11.51 Type 2 diabetes mellitus with diabetic peripheral angiopathy without gangrene; G47.30 Sleep apnea, unspecified; Z87.440 Personal history of urinary (tract) infections; Z98.42 Cataract extraction status, left eye; Z98.41 Cataract extraction status, right eye; Z95.5 Presence of coronary angioplasty implant and graft
CPT/HCPCS: 36415; 74176; 80053; 81001; 83690; 85025; 85055; 96361; 96374; 96375; 99284; J2270; J2765; J7030

== ENCOUNTER 2020-05-30 11:45 | Emergency (ER) | payer OTHER, SELFPAY ==
--- NOTE | ~2020-05-30 | CT_ITS ---
EXAMINATION: CT abdomen pelvis wo con DATE: 05/30/2020 13:16 INDICATION: Abdominal pain, nausea and vomiting TECHNIQUE: Computed tomography (CT) of the abdomen and pelvis was performed with 100 mL Omnipaque-350 intravenous contrast. Automated exposure control and iterative reconstruction technique were employe d. The dose-length product was 1402.84 mGy-cm. COMPARISON: 05/21/2020 FINDINGS: No change in a 2.0 x 1.3 cm nodular opacity at the right posterior sulcus and small more masslike reg ion of likely atelectasis/scarring more medially at the azygos esophageal recess of the posterior sul cus. There is wall thickening in the bronchi of the bilateral lower lobes. Small pneumatocele in the left lower lobe. Unchanged trace right pleural effusion. Cardiomegaly. Likely stenting along the left anterior descending coronary artery. Increasing still small pericardial effusion. Liver, gallbladder , spleen, bilateral adrenal glands are normal. Again seen are couple tiny dystrophic calcification is in the body of the pancreas consistent with sequela of chronic pancreatitis. Bilateral kidneys are n ormal with chronic nonspecific moderate bilateral perinephric stranding. Fluid in the rectum consiste nt with diarrhea. No abnormal bowel wall thickening or obstruction. Appendix is normal. There are cou ple peripherally calcified nodules in the right lower quadrant along the omental fat is likely sequel a of old granulomatous disease or heterotopic ossification related to chronic fat necrosis. 5.4 x 4.2 cm right adnexal mass/asymmetrically enlarged right ovary. Bladder, anteverted uterus and left adnex a are unremarkable. There are few small subcutaneous nodular density along the anterior abdominal wal l likely injection granulomata. Mild bilateral hip osteoarthritis with os acetabula. IMPRESSION: 1. Cardiomegaly with increasing still small pericardial effusion. 2. No change in a couple nodular densities at the posterior sulcus of the right lower lobe most likel y infectious or inflammatory in etiology. Recommend follow-up noncontrast chest CT in 3-6 months. 3. Stigmata of chronic pancreatitis. 4. Asymmetric enlargement of the right ovary versus right adnexal mass which measures 5.4 x 4.2 cm. O n recent pelvic ultrasound dated 03/22/2028 the right ovarian enlargement appear to result from a coupl e large right ovarian cyst. The mass however appears increase in size since CT dated 03/21/2020 and wou ld consider repeat pelvic ultrasound. Reviewed, dictated and finalized at location A. IMPRESSION: 1. Cardiomegaly with increasing still small pericardial effusion. 2. No change in a couple nodular densities at the posterior sulcus of the right lower lobe most likely infectious or inflammatory in etiology. Recommend follo w-up noncontrast chest CT in 3-6 months. 3. Stigmata of chronic pancreatitis. 4. Asymmetric enlargement of the right ovary versus right adnexal mass which me asures 5.4 x 4.2 cm. On recent pelvic ultrasound dated 03/22/2028 the right ovari an enlargement appear to result from a couple large right ovarian cyst. The mas s however appears increase in size since CT dated 03/21/2020 and would consider r epeat pelvic ultrasound.
[2020-05-30 11:54] VITALS: BP 170/130; PULSE 85; RESP 20; TEMP 37.2; O2SAT 99
--- NOTE | 2020-05-30 12:06 | PC.NURSE ---
Unable to obtain IV access, called Cailin Counts w/ [facility] and will attempt IV/labs.
--- NOTE | 2020-05-30 12:13 | ED.ABDPAIN ---
HPI - Abdominal Pain General Chief Complaint: Abdominal Pain Stated Complaint: ABD PAIN Time Seen by Provider: 05/30/20 12:11 Source: patient History of Present Illness HPI narrative: 40 years old white female, morbidly obese, history of diabetes and right upper extremity deep vein thrombosis secondary to PICC line. Also history of gastroparesis, questionable cyclic vomiting syndrome. Patient was diagnosed of gastroparesis by Dr. Benitez weeks ago, started on Bentyl, ran out of it, does not have time to go to see Dr. Benitez again. Later patient reported that Dr. Benitez fired her and now is scheduled to see another easement worker. Patient presents with diffuse abdominal pain, nausea and vomiting for the last few weeks. This is the third emergency room visit over the last 2 weeks. Patient reports using marijuana. Related Data Home Medications Medication Instructions Recorded Confirmed ferrous sulfate 324 mg PO BID 08/18/19 03/21/20 gabapentin 100 mg PO TID 08/18/19 03/21/20 lamotrigine 25 mg PO DAILY 08/18/19 03/21/20 Januvia 100 mg PO DAILY 03/21/20 03/21/20 Lantus Solostar U-100 Insulin 10 unit SUBCUT HS 03/21/20 03/21/20 aspirin 81 mg PO DAILY 03/21/20 03/21/20 clopidogrel 75 mg PO DAILY 03/21/20 03/21/20 furosemide 40 mg PO DAILY 03/21/20 03/23/20 metoclopramide HCl [Reglan] 5 mg PO TID 03/21/20 03/21/20 warfarin 5 mg PO HS 03/21/20 03/21/20 Allergies Allergy/AdvReac Type Severity Reaction Status Date / Time latex Allergy Mild Blister Verified 03/23/20 11:00 adhesive tape AdvReac Unknown Blister Verified 03/23/20 11:00 Review of Systems Review of Systems: Narrative: CONSTITUTIONAL: Denies fever, chills, or sweats. EYES: Denies visual changes, redness, or discharge. ENT: Denies rhinorrhea, congestion, sore throat, or otalgia. CARDIOVASCULAR: Denies chest pain, palpitations, or edema. RESPIRATORY: Denies cough or dyspnea. GASTROINTESTINAL: Denies abdominal pain, nausea, vomiting, or diarrhea. GENITOURINARY: Denies dysuria or hematuria. SKIN: Denies rash or itching. MUSCULOSKELETAL: Denies back pain, joint pain, or myalgia. NEUROLOGIC: Denies headache, numbness, or weakness. PSYCHIATRIC: Denies anxiety or depression. [facility] Past Medical History Medical History Amputation toe left pinky toe Anemia Broken teeth CAD (coronary artery disease) 2013 catheterization: Occluded large diagonal, 50% stenosis of the circumflex 2019: 1 2 stents placed, [facility] in [place] Cardiomyopathy CHF (congestive heart failure) Chronic combined systolic and diastolic CHF (congestive heart failure) Depression with anxiety DVT (deep venous thrombosis) Fibroids Foot fracture, left Gastritis GERD (gastroesophageal reflux disease) GI bleed Heart attack x2 History of angina History of blood transfusion HTN (hypertension) Hyperlipidemia IDDM (insulin dependent diabetes mellitus) Migraine MRSA (methicillin resistant staph aureus) culture positive Nearsightedness Obesity Osteoarthritis PCOS (polycystic ovarian syndrome) Peripheral neuropathy PID (acute pelvic inflammatory disease) PVD (peripheral vascular disease) Sleep apnea Stage 3 chronic kidney disease UTI (urinary tract infection) Yeast infection Surgical History Surgical History H/O bilateral cataract extraction H/O section H/O dilation and curettage H/O hand surgery left tendon repair H/O tubal ligation History of cardiac cath 2 stents Hx of angioplasty Family History Family History Mother Diabetes mellitus Father , age 56 of [place] Heart disease CAD, mi, CHF Social History Social History Social History: , has an 8-year-old son and 6-year-old daughter. Smoking status: Never smoker Alcohol intake
[2020-05-30] MEDS: diphenhydrAMINE HCl INJ 50 MG/ML VIAL IV PUSH (12:44)
[2020-05-30] MEDS: MORPHINE SULFATE 4 MG/ML INJ IV PUSH (12:44)
[2020-05-30] MEDS: METOCLOPRAMIDE HCL INJ 10 MG/2 ML VIAL IV PUSH (12:44)
[2020-05-30] MEDS: SODIUM CHLORIDE 0.9% IV 1,000 ML 999 ML IV CONT (12:44)
[2020-05-30 12:48] LABS: Basophils Absolute Auto 0.1 K/mm3 (0.0-0.1); Basophils Percent Auto 0.9 % (0.2-1.2); Eosinophils Absolute Auto 0.2 K/mm3 (0-0.3); Eosinophils Percent Auto 1.6 % (0-4.4); Hematocrit 45.1 % (37.0-47.0); Immature Granulocyte Absolute 0.05 K/mm3 (0.00-0.031); Immature Granulocyte Percent A 0.4 % (0-0.5); Lymphocytes Absolute Auto 1.76 K/mm3 (0.9-3.2); Mean Corpuscular Hemoglobin 28.1 pg (26-34); Mean Corpuscular Volume 90.4 fl (80-100); Mean Platelet Volume 11.3 fl (7.4-10.4); Monocytes Absolute Auto 1.2 K/mm3 (0.1-0.6); Neutrophils Absolute Auto 10.2 K/mm3 (1.3-6.7); Neutrophils Percent Auto 75.1 % (45.5-73.1); Platelet Count Result 180 k/mm3 (150-375); Red Blood Count 4.99 M/mm3 (4.2-5.4); Red Cell Distribution Width 15.9 % (11.5-14.5); White Blood Count 13.5 K/mm3 (4.5-10.0)
[2020-05-30 12:51] VITALS: PULSE 83; RESP 12; O2SAT 92
[2020-05-30 12:57] LABS: Alanine Aminotransferase 17 U/L (4-35); Albumin Level 3.7 g/dL (3.5-5.1); Alkaline Phosphatase 102 U/L (38-126); Anion Gap 9 mmol/L (8-16); Aspartate Amino Transferase 20 U/L (14-36); Bilirubin,Total 0.8 mg/dL (0.2-1.3); Blood Urea Nitrogen 28 mg/dL (7-17); Carbon Dioxide 28 mmol/L (22-30); Chloride 100 mmol/L (98-107); Estimated CRCL calculation 38 ml/min; Estimated Glomerular Filt Rate 26; Glucose 135 mg/dL (65-105); INR 2.2; Lipase 57 U/L (23-300); Potassium 3.6 mmol/L (3.4-5.0); Prothrombin Time 24.3 Seconds (11.1-14.7); Sodium 137 mmol/L (137-145)
[2020-05-30 13:20] VITALS: PULSE 88; RESP 12; O2SAT 94
[2020-05-30 13:51] LABS: Add Urine Microscopic? YES; Appearance Urine Clear (Clear); Bilirubin Urine Negative (Negative); Blood Urine 3+ (Negative); Color Urine Yellow (Yellow); Glucose Urine UA Negative (Negative); Ketones Urine Negative (Negative); Leukocyte Esterase Ur Negative LEU/UL (Negative); Mucus Urine Rare /lpf; Nitrate Urine Negative (Negative); Protein Urine 3+ mg/dL (Negative); Specific Grav Ur 1.016 (1.001-1.035); Squamous Epithelial Cell Urine Moderate /hpf (Few); Urobilinogen Urine Negative mg/dL (<2.0)
[2020-05-30 14:01] LABS: Amphetamine Screen Urine Negative (Negative); Barbiturate Screen Urine Negative (Negative); Benzodiazepines Screen Urine Negative (Negative); Cannabinoid Screen Urine Positive (Negative); Cocaine Screen Urine Negative (Negative); Methadone Screen Urine Negative (Negative); Opiate Screen Urine Positive (Negative); Phencyclidine Screen Urine Negative (Negative)
[2020-05-30 14:11] VITALS: BP 169/61; PULSE 79; RESP 12; O2SAT 95
[2020-05-30 14:58] VITALS: BP 160/108; PULSE 77; RESP 14; O2SAT 99
== END 2020-05-30 15:08 | disposition home or self-care (01) ==
PROVIDERS: Physician Assistant; Emergency Provider Emergency Medicine; PCP Family Medicine
DX: R10.84 Generalized abdominal pain (principal); R11.2 Nausea with vomiting, unspecified; D64.9 Anemia, unspecified; I25.10 Atherosclerotic heart disease of native coronary artery without angina pectoris; F41.9 Anxiety disorder, unspecified; F32.9 Major depressive disorder, single episode, unspecified; K21.9 Gastro-esophageal reflux disease without esophagitis; I13.0 Hypertensive heart and chronic kidney disease with heart failure and stage 1 through stage 4 chronic kidney disease, or unspecified chronic kidney disease; E11.22 Type 2 diabetes mellitus with diabetic chronic kidney disease; N18.3 Chronic kidney disease, stage 3 (moderate); I50.82 Biventricular heart failure; Z79.4 Long term (current) use of insulin; M19.90 Unspecified osteoarthritis, unspecified site; I25.2 Old myocardial infarction; G47.30 Sleep apnea, unspecified; Z87.440 Personal history of urinary (tract) infections
CPT/HCPCS: 36415; 74176; 80053; 80307; 81001; 81025; 83690; 85025; 85610; 87086; 87088; 96361; 96374; 96375; 99284; J1200; J2270; J2765; J7030

== ENCOUNTER 2020-12-28 01:23 | Observation (INO) | payer OTHER, SELFPAY ==
[2020-12-28] VITALS (10 sets, daily range): BP systolic 130–154; BP diastolic 91–112; PULSE 88–98; RESP 16–24; TEMP 36.6–36.7; O2SAT 96–98; BMI 41.0
--- NOTE | ~2020-12-28 | CT_ITS ---
EXAMINATION: CT abdomen pelvis wo con DATE: 12/28/2020 02:56 INDICATION: Abdominal pain with nausea and vomiting TECHNIQUE: Computed tomography (CT) of the abdomen and pelvis was performed without intravenous contr ast. The dose-length product (DLP) was 1649.76 mGy-cm. Automated exposure control and iterative recon struction technique were employed. COMPARISON: 05/30/2020 FINDINGS: There are small pleural effusions. Cardiomegaly is noted. There is calcified coronary arter y atherosclerosis. There are groundglass opacities and smooth interlobular septal thickening in the v isualized lung bases. The liver, spleen, pancreas, gallbladder, and adrenal glands are normal. Cysts of the left kidney measure up to 1.4 cm. The right kidney is unremarkable. There is calcified atheros clerosis of the aorta and many of the other arteries. No pathologically enlarged abdominal or pelvic lymph nodes are identified. The appendix is normal. There is no free intraperitoneal gas or evidence of bowel obstruction. Calcified areas seen anteriorly in the right midabdomen likely reflect fat necr osis. There is chronic enlargement of the right ovary. Prior ultrasound demonstrated multiple cysts. IMPRESSION: 1. Cardiomegaly with mild pulmonary edema the visualized lung bases. 2. Small pleural effusions. 3. No acute abdominal or pelvic findings. Reviewed, dictated and finalized at location A. NCILIATION ANALYST
[2020-12-28] MEDS: diphenhydrAMINE HCl INJ 50 MG/ML VIAL 25 MG IV PUSH (01:42)
[2020-12-28] MEDS: PROCHLORPERAZINE EDISYLATE 10 MG/2 ML VIAL IV PUSH ×4 (01:42→23:59)
[2020-12-28] MEDS: SODIUM CHLORIDE 0.9% IV 1,000 ML 999 ML IV CONT ×3 (01:43→07:48)
[2020-12-28] MEDS: MORPHINE SULFATE (*CRX) 4 MG/ML INJ IV PUSH (01:44)
[2020-12-28 02:18] LABS: Basophils Absolute Auto 0.1 K/mm3 (0.0-0.1); Basophils Percent Auto 0.3 % (0.2-1.2); Eosinophils Percent Auto 0.1 % (0-4.4); Hematocrit 46.1 % (37.0-47.0); Hemoglobin 14.2 g/dL (12.0-15.0); Immature Granulocyte Absolute 0.12 K/mm3 (0.00-0.031); Immature Granulocyte Percent A 0.7 % (0-0.5); Lymphocytes Absolute Auto 0.46 K/mm3 (0.9-3.2); Lymphocytes Percent Auto 2.6 % (18.3-44.2); Mean Corpuscular HGB Conc 30.8 g/dl (32-36); Mean Corpuscular Hemoglobin 27.6 pg (26-34); Mean Corpuscular Volume 89.7 fl (80-100); Mean Platelet Volume 11.2 fl (7.4-10.4); Monocytes Absolute Auto 0.3 K/mm3 (0.1-0.6); Monocytes Percent Auto 1.5 % (2.6-8.5); Neutrophils Absolute Auto 16.9 K/mm3 (1.3-6.7); Neutrophils Percent Auto 94.8 % (45.5-73.1); Nucleated Red Blood Cells Perc 0.2 % (0.0-0.2); Platelet Count Result 257 k/mm3 (150-375); Red Blood Count 5.14 M/mm3 (4.2-5.4); White Blood Count 17.8 K/mm3 (4.5-10.0)
[2020-12-28 02:40] LABS: Alanine Aminotransferase 19 U/L (4-35); Albumin Level 4.2 g/dL (3.5-5.1); Alkaline Phosphatase 173 U/L (38-126); Anion Gap 19 mmol/L (8-16); Aspartate Amino Transferase 28 U/L (14-36); Bilirubin,Total 1.3 mg/dL (0.2-1.3); Blood Urea Nitrogen 52 mg/dL (7-17); Calcium 9.5 mg/dL (8.4-10.2); Carbon Dioxide 11 mmol/L (22-30); Chloride 109 mmol/L (98-107); Estimated CRCL calculation 27 ml/min; Estimated Glomerular Filt Rate 17; Glucose 278 mg/dL (65-105); Lipase 43 U/L (23-300); Potassium 5.4 mmol/L (3.4-5.0); Sodium 139 mmol/L (137-145)
--- NOTE | 2020-12-28 04:26 | ED.GENADULT ---
HPI - General Adult General Chief complaint: Nausea/Vomiting/Diarrhea Stated complaint: ABD PAIN AND VOMITING Time Seen by Provider: 12/28/20 01:29 History of Present Illness HPI narrative: Patient 40-year-old female who presents the emergency department with chief complaint of abdominal pain nausea and vomiting. The patient reports she has history of gastroparesis and reports that she has had several days of nausea and vomiting. The patient reports that been unable to tolerate p.o. intake reports that she is not had any fevers. Patient denies chest pain denies shortness of breath reports that she is not able to get comfortable in any position. Patient reports he is also had a history of pancreatitis before in the past Related Data Home Medications Medication Instructions Recorded Confirmed ferrous sulfate 324 mg PO BID 08/18/19 03/21/20 gabapentin 100 mg PO TID 08/18/19 03/21/20 lamotrigine 25 mg PO DAILY 08/18/19 03/21/20 Januvia 100 mg PO DAILY 03/21/20 03/21/20 Lantus Solostar U-100 Insulin 10 unit SUBCUT HS 03/21/20 03/21/20 aspirin 81 mg PO DAILY 03/21/20 03/21/20 clopidogrel 75 mg PO DAILY 03/21/20 03/21/20 furosemide 40 mg PO DAILY 03/21/20 03/23/20 metoclopramide HCl [Reglan] 5 mg PO TID 03/21/20 03/21/20 warfarin 5 mg PO HS 03/21/20 03/21/20 Allergies Allergy/AdvReac Type Severity Reaction Status Date / Time latex Allergy Mild Blister Verified 03/23/20 11:00 adhesive tape AdvReac Unknown Blister Verified 03/23/20 11:00 Review of Systems Review of Systems: Narrative: A 10 system review of systems was completed on the patient and is negative except for what is stated in the HPI. Nursing and ancillary documentation was reviewed. [facility] Past Medical History Medical History (Updated 12/28/20 @ 05:24 by Andrzej Sandoval MD) Amputation toe left pinky toe Anemia Broken teeth CAD (coronary artery disease) 2013 catheterization: Occluded large diagonal, 50% stenosis of the circumflex 2019: 1 2 stents placed, [facility] in [place] Cardiomyopathy CHF (congestive heart failure) Chronic combined systolic and diastolic CHF (congestive heart failure) Depression with anxiety DVT (deep venous thrombosis) Fibroids Foot fracture, left Gastritis GERD (gastroesophageal reflux disease) GI bleed Heart attack x2 History of angina History of blood transfusion HTN (hypertension) Hyperlipidemia IDDM (insulin dependent diabetes mellitus) Migraine MRSA (methicillin resistant staph aureus) culture positive Nearsightedness Obesity Osteoarthritis PCOS (polycystic ovarian syndrome) Peripheral neuropathy PID (acute pelvic inflammatory disease) PVD (peripheral vascular disease) Sleep apnea Stage 3 chronic kidney disease UTI (urinary tract infection) Yeast infection Surgical History Surgical History H/O bilateral cataract extraction H/O section H/O dilation and curettage H/O hand surgery left tendon repair H/O tubal ligation History of cardiac cath 2 stents Hx of angioplasty Family History Family History Mother Diabetes mellitus Father , age 56 of [place] Heart disease CAD, mi, CHF Social History Social History Social History: , has an 8-year-old son and 6-year-old daughter. Smoking status: Never smoker Alcohol intake: never Substance use: current Substance use type: marijuana Last use: 03/19/2020 Gender identity (if verbalized by the patient): Female Spiritual care concerns: No Agree to blood products: Yes Exam Narrative: Exam Narrative: GENERAL: Well-appearing, well-nourished, and in no acute distress. HEAD: Normocephalic, atraumatic. EYES: PERRLA and EOMI. ENT: Nares clear, no rhinorrhea or epistaxis. Mucous membranes moist. NECK: Supple.
[2020-12-28 05:16] LABS: Add Urine Microscopic? YES; Appearance Urine Cloudy (Clear); Bacteria Urine Trace /hpf; Bilirubin Urine Negative (Negative); Blood Urine 1+ (Negative); Color Urine Yellow (Yellow); Glucose Urine UA 1+ mg/dL (Negative); Ketones Urine Negative (Negative); Leukocyte Esterase Ur Trace LEU/UL (Negative); Mucus Urine Rare /lpf; Nitrate Urine Negative (Negative); Protein Urine 3+ mg/dL (Negative); Specific Grav Ur 1.014 (1.001-1.035); Squamous Epithelial Cell Urine Many /hpf (Few)
[2020-12-28] MEDS: FAMOTIDINE 20 MG/2 ML VIAL IV PUSH ×3 (05:19→20:50)
[2020-12-28] MEDS: SODIUM CHLORIDE 0.9% IV 1,000 ML 125 ML IV CONT (05:20)
--- NOTE | 2020-12-28 07:01 | PC.NURSE ---
This patient, Michelle Rhoades, was admitted to 3 [facility] Surg Room 324-01 @0610. Patient/family oriented to hospital policies and general routines including ID bracelet, bed and alarms, visiting hours, pain management, procedures, bathroom and other care routines, personal items, smoking policy, room service/diet, and visiting hours. Information on how to activate the Rapid Response Team has been discussed. Patient/Family are encouraged to report perceived risks to care and to ask questions if they do not understand what they are told or what they should do.
[2020-12-28 07:10] LABS: Base Excess ABG -9.3 mEq/l (+/-2.0); Fractional Inspired Oxygen 21 %; HCO3 ABG 16.1 mEq/l (22.0-26.0); Oxygen Content ABG 16.6 %vol (16.0-22.0); Oxyhemoglobin 85.8 % THb (90.0-100.0); PCO2 ABG 33.6 mmHg (35.0-45.0); PO2 ABG 56.5 mmHg (80.0-100.0); PO2 FiO2 Ratio Arterial Blood 2.69 %; Total Hemoglobin 13.8 g/dL (12.0-18.0); pH ABG 7.297 (7.350-7.450)
[2020-12-28 07:12] LABS: Device ROOM AIR; Modified Allen's Test Pass; Oxygen Saturation ABG 86.8 % (95.0-100.0); Site Drawn LEFT RADIAL
[2020-12-28 07:33] LABS: Basophils Percent Auto 0.2 % (0.2-1.2); Hematocrit 43.8 % (37.0-47.0); Hemoglobin 13.5 g/dL (12.0-15.0); Immature Granulocyte Absolute 0.08 K/mm3 (0.00-0.031); Immature Granulocyte Percent A 0.6 % (0-0.5); Immature Platelet Fraction Pct 4.2 % (0.9-11.2); Lymphocytes Absolute Auto 0.73 K/mm3 (0.9-3.2); Lymphocytes Percent Auto 5.4 % (18.3-44.2); Mean Corpuscular HGB Conc 30.8 g/dl (32-36); Mean Corpuscular Hemoglobin 27.7 pg (26-34); Mean Corpuscular Volume 89.9 fl (80-100); Mean Platelet Volume 11.1 fl (7.4-10.4); Monocytes Absolute Auto 0.5 K/mm3 (0.1-0.6); Monocytes Percent Auto 3.5 % (2.6-8.5); Neutrophils Absolute Auto 12.2 K/mm3 (1.3-6.7); Neutrophils Percent Auto 90.3 % (45.5-73.1); Nucleated Red Blood Cells Perc 0.2 % (0.0-0.2); Platelet Count Result 170 k/mm3 (150-375); Red Blood Count 4.87 M/mm3 (4.2-5.4); Red Cell Distribution Width 17.9 % (11.5-14.5); White Blood Count 13.5 K/mm3 (4.5-10.0)
[2020-12-28] MEDS: INSULIN HUMAN REGULAR (*BKC) 100 UNITS/ML 15 UNITS SUB-Q (07:49)
[2020-12-28 07:50] LABS: Beta-Hydroxybutyrate/Acetoacetate 2.06 mmol/L (0.02-0.27)
[2020-12-28] MEDS: SODIUM CHLORIDE 0.9% IV 1,000 ML 150 ML IV CONT ×2 (08:44→15:52)
[2020-12-28 09:06] LABS: Glucose Point of Care 238 (65-105)
[2020-12-28 09:21] LABS: Alanine Aminotransferase 14 U/L (4-35); Albumin Level 3.4 g/dL (3.5-5.1); Alkaline Phosphatase 134 U/L (38-126); Anion Gap 11 mmol/L (8-16); Aspartate Amino Transferase 17 U/L (14-36); Bilirubin,Total 0.8 mg/dL (0.2-1.3); Blood Urea Nitrogen 52 mg/dL (7-17); Calcium 8.7 mg/dL (8.4-10.2); Carbon Dioxide 19 mmol/L (22-30); Chloride 110 mmol/L (98-107); Estimated CRCL calculation 27 ml/min; Estimated Glomerular Filt Rate 17; Glucose 221 mg/dL (65-105); Potassium 5.9 mmol/L (3.4-5.0); Sodium 140 mmol/L (137-145)
--- NOTE | 2020-12-28 09:58 | PM.IMHP ---
H&P: HPI History of Present Illness Date/Time: 12/28/20 09:58 Chief Complaint: 40 years old female with history of insulin-dependent diabetes was admitted with complaint of having nausea of vomiting abdominal cramping over the last few days. Patient was unable to keep the food down. Patient denies any shortness of breath or chest pain. Patient denies any burning urination fever or chills. Patient denies any exposure to COVID. In the ER patient was found to have uncontrolled diabetes and high sugar along with electrolyte imbalance. Patient also have mild urinary tract infection, patient was admitted for further evaluation treatment of the floor. On the floor patient is feeling much better nausea and vomiting is under control,no fever no chills. Mood stable. Review of Systems Review of Systems: All systems reviewed & are unremarkable except as noted in HPI and below ( history and physical exam) [facility] Past Medical History Medical History (Updated 12/28/20 @ 10:04 by Luis F Calderón MD) Amputation toe left pinky toe Anemia Broken teeth CAD (coronary artery disease) 2013 catheterization: Occluded large diagonal, 50% stenosis of the circumflex 2019: 1 2 stents placed, [facility] in [place] Cardiomyopathy CHF (congestive heart failure) Chronic combined systolic and diastolic CHF (congestive heart failure) Depression with anxiety DVT (deep venous thrombosis) Fibroids Foot fracture, left Gastritis GERD (gastroesophageal reflux disease) GI bleed Heart attack x2 History of angina History of blood transfusion HTN (hypertension) Hyperlipidemia IDDM (insulin dependent diabetes mellitus) Migraine MRSA (methicillin resistant staph aureus) culture positive Nearsightedness Obesity Osteoarthritis PCOS (polycystic ovarian syndrome) Peripheral neuropathy PID (acute pelvic inflammatory disease) PVD (peripheral vascular disease) Sleep apnea Stage 3 chronic kidney disease UTI (urinary tract infection) Yeast infection Surgical History Surgical History H/O bilateral cataract extraction H/O section H/O dilation and curettage H/O hand surgery left tendon repair H/O tubal ligation History of cardiac cath 2 stents Hx of angioplasty Family History Family History Mother Diabetes mellitus Father , age 56 of [place] Heart disease CAD, mi, CHF Social History Social History Social History: , has an 8-year-old son and 6-year-old daughter. Smoking status: Never smoker Alcohol intake: never Substance use: current Substance use type: marijuana Other substance usage details: once in awhile Last use: 03/19/2020 Gender identity (if verbalized by the patient): Female Spiritual care concerns: No Agree to blood products: Yes Meds Home Medications and Allergies Home Medications Medication Instructions Recorded Confirmed Type gabapentin 100 mg PO TID 08/18/19 12/28/20 History lamotrigine 50 mg PO DAILY 08/18/19 12/28/20 History Januvia 100 mg PO DAILY 03/21/20 12/28/20 History clopidogrel 75 mg PO DAILY 03/21/20 12/28/20 History furosemide 40 mg PO BID 03/21/20 12/28/20 History isosorbide mononitrate 15 mg PO QAM #30 tablet 03/23/20 12/28/20 Rx dicyclomine 20 mg PO QID #30 tablet 05/30/20 12/28/20 Rx ondansetron 4 mg PO Q6H PRN #10 tablet 05/30/20 12/28/20 Rx amlodipine [Norvasc] 10 mg PO DAILY 12/28/20 12/28/20 History duloxetine [Cymbalta] 30 mg PO DAILY 12/28/20 12/28/20 History insulin aspart U-100 [Novolog 1 sliding scale dose SUBCUT 12/28/20 12/28/20 History U-100 Insulin aspart] USEASDIRECTD insulin glargine [Lantus U-100 25 unit SUBCUT HS 12/28/20 12/28/20 History Insulin] losartan [Cozaar] 100 mg PO DAILY 12/28/20 12/28/20 History omeprazole 40 mg PO DAILY 12/28/20 12/28/20 History spironolacto
[2020-12-28 10:23] LABS: Glucose Point of Care 196 (65-105)
[2020-12-28 11:45] LABS: Glucose Point of Care 192 (65-105)
[2020-12-28] MEDS: GABAPENTIN 100 MG CAPSULE PO ×2 (12:57→17:53)
[2020-12-28] MEDS: DICYCLOMINE HCL 10 MG CAPSULE 20 MG PO ×3 (12:57→20:50)
[2020-12-28] MEDS: PANTOPRAZOLE SODIUM IV 40 MG VIAL IV PUSH (14:03)
[2020-12-28 15:11] LABS: Anion Gap 6 mmol/L (8-16); Blood Urea Nitrogen 52 mg/dL (7-17); Calcium 8.6 mg/dL (8.4-10.2); Carbon Dioxide 19 mmol/L (22-30); Chloride 115 mmol/L (98-107); Estimated CRCL calculation 27 ml/min; Estimated Glomerular Filt Rate 17; Glucose 152 mg/dL (65-105); Potassium 4.9 mmol/L (3.4-5.0); Sodium 140 mmol/L (137-145)
[2020-12-28] MEDS: DICYCLOMINE HCL INJ 20 MG/2 ML VIAL IM (17:34)
[2020-12-28] MEDS: ACETAMINOPHEN 325 MG TABLET 650 MG PO ×2 (17:52→23:58)
[2020-12-28 17:58] LABS: Glucose Point of Care 132 (65-105)
[2020-12-28 20:58] LABS: Glucose Point of Care 187 (65-105)
[2020-12-28] MEDS: INSULIN GLARGINE (*BKC) 100 UNITS/ML 25 UNITS SUB-Q (21:00)
[2020-12-29] VITALS (8 sets, daily range): BP systolic 124–136; BP diastolic 82–99; PULSE 75–93; RESP 16–20; TEMP 36.1–36.6; O2SAT 94–100
[2020-12-29] MEDS: SODIUM CHLORIDE 0.9% IV 1,000 ML 150 ML IV CONT (03:26)
--- NOTE | 2020-12-29 06:35 | PC.NURSE ---
Called Dr. Murray, patient appeared to have increased edema on all extremities. She had NS running at 150/hr at the time. NS was discontinued per Dr. Murray's request. Patient appears to be resting peacefully at this time.
[2020-12-29 06:53] LABS: Hematocrit 40.2 % (37.0-47.0); Hemoglobin 12.4 g/dL (12.0-15.0); Mean Corpuscular HGB Conc 30.8 g/dl (32-36); Mean Corpuscular Hemoglobin 26.8 pg (26-34); Mean Platelet Volume 10.7 fl (7.4-10.4); Platelet Count Result 153 k/mm3 (150-375); Red Blood Count 4.62 M/mm3 (4.2-5.4); Red Cell Distribution Width 18.1 % (11.5-14.5); White Blood Count 18.8 K/mm3 (4.5-10.0)
[2020-12-29 07:05] LABS: Alanine Aminotransferase 14 U/L (4-35); Albumin Level 3.1 g/dL (3.5-5.1); Alkaline Phosphatase 107 U/L (38-126); Anion Gap 6 mmol/L (8-16); Aspartate Amino Transferase 21 U/L (14-36); Blood Urea Nitrogen 51 mg/dL (7-17); Calcium 8.6 mg/dL (8.4-10.2); Carbon Dioxide 18 mmol/L (22-30); Chloride 115 mmol/L (98-107); Estimated CRCL calculation 27 ml/min; Estimated Glomerular Filt Rate 17; Glucose 126 mg/dL (65-105); Potassium 5.1 mmol/L (3.4-5.0); Sodium 139 mmol/L (137-145)
--- NOTE | 2020-12-29 08:31 | PM.IMPN ---
Progress Note: A&P Assessment and Plan (1) Uncontrolled diabetes mellitus: Code(s): E11.65 - Type 2 diabetes mellitus with hyperglycemia Status: Acute Assessment and Plan: Will provide diabetic teaching and dietitian consult. With control sugar with sliding scale insulin. Sugar is better today, will continue current treatment (2) Acute dehydration: Code(s): E86.0 - Dehydration Status: Acute Assessment and Plan: Rehydrate patient and monitor labs. Patient creatinine is 3 and that is chronic continue to monitor. (3) Uncontrolled hypertension: Code(s): I10 - Essential (primary) hypertension Status: Acute Assessment and Plan: Continue medication monitor blood pressure. Blood pressure better (4) Hyperkalemia: Code(s): E87.5 - Hyperkalemia Status: Acute Assessment and Plan: Recheck potassium at 2:00 p.m. and monitor closely. Has resolved (5) Chronic anticoagulation: Code(s): Z79.01 - superintendent terminal (current) use of anticoagulants Status: Chronic Assessment and Plan: Continue with anticoagulation (6) CKD stage 4 due to type 2 diabetes mellitus: Code(s): E11.22 - Type 2 diabetes mellitus with diabetic chronic kidney disease; N18.4 - Chronic kidney disease, stage 4 (severe) Status: Acute Assessment and Plan: Monitor creatinine. (7) Chronic combined systolic and diastolic CHF (congestive heart failure): Code(s): I50.42 - Chronic combined systolic (congestive) and diastolic (congestive) heart failure Status: Acute Assessment and Plan: Monitor fluid intake. Continue home medications. (8) UTI (urinary tract infection): Code(s): N39.0 - Urinary tract infection, site not specified Status: Acute Assessment and Plan: Urine culture on IV antibiotics. Additional Plan Patient is admitted on telemetry floor. Will provide diabetic Education and dietitian consult. We monitor electrolytes. Will continue home medication. Will do urine culture and give IV antibiotics. Patient is to for more than 2 days in the hospital. Further evaluation and treatment will be provided according to the lab data available and recommendation by the specialist. Opiate counseling provided. Patient is full code. Patient condition is improving,continue current treatment. Possible discharge tomorrow morning Subjective Date/time seen: 12/29/20 08:31 Interval history: Patient was seen during the morning rounds today. Patient is feeling slightly better. Decrease nausea and vomiting. Decreased abdominal pain. No shortness of breath or chest pain. Mood stable. Review of Systems Review of Systems: All systems reviewed & are unremarkable except as noted in HPI and below ( history and physical exam) Exam Narrative: Exam Narrative: Exam Narrative: GENERAL: Well-appearing, well-nourished, and in no acute distress. HEAD: Normocephalic, atraumatic. EYES: PERRLA and EOMI. ENT: Nares clear, no rhinorrhea or epistaxis. Mucous membranes moist. NECK: Supple. CHEST: Clear to auscultation. No respiratory distress. HEART: Regular rate and rhythm. No murmur heard. Normal peripheral pulses. ABDOMEN: Soft, diffusely tender, nondistended, normal active bowel sounds. EXTREMITIES: Normal range of motion. No edema. SKIN: Warm, dry, no rash. NEURO: No focal deficits. Alert and oriented x3. PSYCH: Normal mood and affect. Objective Data Vital Signs Vital Signs: Vital Signs - 24 hr 12/28/20 12:00 12/28/20 14:00 12/28/20 16:00 Temperature 36.6 C Pulse Rate 88 97 92 Respiratory Rate 16 Blood Pressure 148/99 H Pulse Oximetry 98 12/28/20 20:00 12/28/20 21:34 12/29/20 00:00 Temperature 36.6 C Pulse Rate 89 97 88 Respiratory Rate 20 Blood Pressure 130/95 H Pulse Oximetry 98 12/29/20 04:00 12/29/20 05:29 Temperature 36.2 C L Pulse Rate 90 91 Respiratory Rate 20 Blood Pressure 124/82 Pulse Ox
[2020-12-29] MEDS: CLOPIDOGREL BISULFATE 75 MG TABLET PO (09:19)
[2020-12-29] MEDS: amLODIPine BESYLATE 5 MG TABLET 10 MG PO (09:20)
[2020-12-29] MEDS: DULoxetine HCL 30 MG CAPSULE.DR PO (09:22)
[2020-12-29] MEDS: FAMOTIDINE 20 MG/2 ML VIAL IV PUSH ×2 (09:22→20:57)
[2020-12-29] MEDS: DICYCLOMINE HCL 10 MG CAPSULE 20 MG PO ×3 (09:23→20:57)
[2020-12-29] MEDS: ISOSORBIDE MONONITRATE 15 MG TAB.ER.24H PO (09:24)
[2020-12-29] MEDS: GABAPENTIN 100 MG CAPSULE PO ×2 (09:24→15:44)
[2020-12-29] MEDS: lamoTRIgine 25 MG TABLET 50 MG PO (09:25)
[2020-12-29] MEDS: LOSARTAN POTASSIUM 50 MG TABLET 100 MG PO (09:25)
[2020-12-29] MEDS: PANTOPRAZOLE 40 MG TABLET PO (09:26)
[2020-12-29 10:12] LABS: Glucose Point of Care 147 (65-105)
[2020-12-29] MEDS: INSULIN ASPART (*BKC) 100 UNITS/ML SUB-Q (13:00)
[2020-12-29 13:08] LABS: Glucose Point of Care 228 (65-105)
[2020-12-29 17:09] LABS: Glucose Point of Care 216 (65-105)
[2020-12-29] MEDS: INSULIN GLARGINE (*BKC) 100 UNITS/ML 25 UNITS SUB-Q (20:57)
[2020-12-29 21:55] LABS: Glucose Point of Care 146 (65-105)
[2020-12-29] MEDS: LORazepam (*CRX) 0.5 MG TABLET PO (22:59)
--- NOTE | 2020-12-29 23:11 | PC.NURSE ---
484 I CALLLED AND SPOKE WITH PROVIDER SLOANE MILLER AND MADE HER AWARE OF PATIENT'S COMPLAINTS OF FEELING ANXIOUS AND IRRITABLE. vss. NEW ORDER RECEIVED FOR 0.5MG ATIVAN PO ONCE.
--- NOTE | 2020-12-30 03:59 | PC.NURSE ---
Daylight Savings Time For Daylight Savings Time Ending in the Fall - Clocks are moved back. For Daylight Savings Time Beginning in the Spring - Clocks are moved ahead. For [facility], the time of change occurs at 0200 hrs. Time is taken from the gravity meter observer. This entry on the patient's chart recognizes the change in time reflected during documentation. Example: 2 entries for vital signs may be charted for 0200 hrs.
[2020-12-30 05:32] VITALS: BP 130/92; PULSE 86; RESP 20; TEMP 36.2; O2SAT 95
[2020-12-30 06:33] LABS: Alanine Aminotransferase 24 U/L (4-35); Alkaline Phosphatase 107 U/L (38-126); Anion Gap 4 mmol/L (8-16); Aspartate Amino Transferase 30 U/L (14-36); Bilirubin,Total 0.7 mg/dL (0.2-1.3); Blood Urea Nitrogen 48 mg/dL (7-17); Calcium 8.5 mg/dL (8.4-10.2); Carbon Dioxide 21 mmol/L (22-30); Chloride 113 mmol/L (98-107); Estimated CRCL calculation 29 ml/min; Estimated Glomerular Filt Rate 19; Glucose 94 mg/dL (65-105); Potassium 4.7 mmol/L (3.4-5.0); Sodium 138 mmol/L (137-145)
[2020-12-30 06:53] LABS: Hematocrit 40.4 % (37.0-47.0); Hemoglobin 12.5 g/dL (12.0-15.0); Immature Platelet Fraction Pct 4.8 % (0.9-11.2); Mean Corpuscular HGB Conc 30.9 g/dl (32-36); Mean Corpuscular Hemoglobin 27.7 pg (26-34); Mean Corpuscular Volume 89.4 fl (80-100); Mean Platelet Volume 11.2 fl (7.4-10.4); Platelet Count Result 152 k/mm3 (150-375); Red Blood Count 4.52 M/mm3 (4.2-5.4); Red Cell Distribution Width 18.4 % (11.5-14.5); White Blood Count 13.6 K/mm3 (4.5-10.0)
[2020-12-30 08:00] VITALS: PULSE 86; RESP 20; O2SAT 100
[2020-12-30 08:13] LABS: Glucose Point of Care 115 (65-105)
[2020-12-30 08:51] VITALS: O2SAT 100
[2020-12-30] MEDS: amLODIPine BESYLATE 5 MG TABLET 10 MG PO (09:15)
[2020-12-30] MEDS: CLOPIDOGREL BISULFATE 75 MG TABLET PO (09:16)
[2020-12-30] MEDS: DICYCLOMINE HCL 10 MG CAPSULE 20 MG PO ×2 (09:17→12:38)
[2020-12-30] MEDS: DULoxetine HCL 30 MG CAPSULE.DR PO (09:18)
[2020-12-30] MEDS: LOSARTAN POTASSIUM 50 MG TABLET 100 MG PO (09:19)
[2020-12-30] MEDS: PANTOPRAZOLE 40 MG TABLET PO (09:19)
[2020-12-30] MEDS: ISOSORBIDE MONONITRATE 15 MG TAB.ER.24H PO (09:20)
[2020-12-30] MEDS: FAMOTIDINE 20 MG/2 ML VIAL IV PUSH (09:21)
[2020-12-30] MEDS: lamoTRIgine 25 MG TABLET 50 MG PO (09:21)
--- NOTE | 2020-12-30 10:21 | PM.DS ---
DS: Admitting Diagnosis Admitting Diagnosis Admitting Diagnosis: 1. Uncontrolled diabetes 2. Acute dehydration 3. Hyperkalemia 4. Stage 4 chronic kidney disease 5. Uncontrolled hypertension DS: Discharge Diagnosis Discharge Diagnosis (1) Uncontrolled diabetes mellitus: Code(s): E11.65 - Type 2 diabetes mellitus with hyperglycemia Status: Acute Assessment and Plan: Will provide diabetic teaching and dietitian consult. With control sugar with sliding scale insulin. Sugar is better today, will continue current treatment (2) Acute dehydration: Code(s): E86.0 - Dehydration Status: Acute Assessment and Plan: Rehydrate patient and monitor labs. Patient creatinine is 3 and that is chronic continue to monitor. (3) Uncontrolled hypertension: Code(s): I10 - Essential (primary) hypertension Status: Acute Assessment and Plan: Continue medication monitor blood pressure. Blood pressure better (4) Hyperkalemia: Code(s): E87.5 - Hyperkalemia Status: Acute Assessment and Plan: Recheck potassium at 2:00 p.m. and monitor closely. Has resolved (5) Chronic anticoagulation: Code(s): Z79.01 - senior living (current) use of anticoagulants Status: Chronic Assessment and Plan: Continue with anticoagulation (6) CKD stage 4 due to type 2 diabetes mellitus: Code(s): E11.22 - Type 2 diabetes mellitus with diabetic chronic kidney disease; N18.4 - Chronic kidney disease, stage 4 (severe) Status: Acute Assessment and Plan: Monitor creatinine. (7) Chronic combined systolic and diastolic CHF (congestive heart failure): Code(s): I50.42 - Chronic combined systolic (congestive) and diastolic (congestive) heart failure Status: Acute Assessment and Plan: Monitor fluid intake. Continue home medications. (8) UTI (urinary tract infection): Code(s): N39.0 - Urinary tract infection, site not specified Status: Acute Assessment and Plan: Urine culture on IV antibiotics. DS: Summary Hospital Course Reason for hospitalization: Uncontrolled IV Hospital Course: 40 years old female with history of diabetes mellitus hypertension chronic kidney disease was admitted complains of having abdominal pain and nausea. Patient was found to have uncontrolled diabetes and uncontrolled hypertension. Blood culture and urine culture negative. Patient was given IV fluids. Nausea was controlled with medication. Hyten few days of treatment patient started feeling better. Today's patient is feeling better able to tolerate p.o. food. Patient is discharged home in stable condition. Follow-up scheduled. Time spent discussing smoking cessation with patient: 3 to 10 minutes Status at Discharge Cognitive/behavioral status at discharge: Stable Overall status at discharge: patient is back to baseline Time Spent with Patient Time attestation: Total time spent providing and/or coordinating discharge services: Time spent: Less than 30 minutes Exam Narrative: Exam Narrative: Exam Narrative: GENERAL: Well-appearing, well-nourished, and in no acute distress. HEAD: Normocephalic, atraumatic. EYES: PERRLA and EOMI. ENT: Nares clear, no rhinorrhea or epistaxis. Mucous membranes moist. NECK: Supple. CHEST: Clear to auscultation. No respiratory distress. HEART: Regular rate and rhythm. No murmur heard. Normal peripheral pulses. ABDOMEN: Soft, diffusely tender, nondistended, normal active bowel sounds. EXTREMITIES: Normal range of motion. No edema. SKIN: Warm, dry, no rash. NEURO: No focal deficits. Alert and oriented x3. PSYCH: Normal mood and affect. DS: Data Data Completed and Pending Labs on day of discharge: Labs from last 24 hours 12/30/20 12/30/20 12/30/20 07:55 06:05 06:05 WBC 13.6 H RBC 4.52 Hgb 12.5 Hct 40.4 MCV 89.4 MCH 27.7 MCHC 30.9 L RDW 18.4 H Plt Count 152 MPV 11.2 H % Immatur
[2020-12-30 12:19] LABS: Glucose Point of Care 141 (65-105)
[2020-12-30] MEDS: GABAPENTIN 100 MG CAPSULE PO (12:35)
== END 2020-12-30 15:55 | disposition home or self-care (01) ==
LOC: ANHED 05:24 → ANH3MEDSUR 12-30 10:21
PROVIDERS: Physician Assistant; Admitting Provider Family Medicine; Emergency Provider Emergency Medicine; PCP Family Medicine; Visit Provider Internal Medicine
DX: E11.65 Type 2 diabetes mellitus with hyperglycemia (principal); E86.0 Dehydration; E87.5 Hyperkalemia; N39.0 Urinary tract infection, site not specified; I13.0 Hypertensive heart and chronic kidney disease with heart failure and stage 1 through stage 4 chronic kidney disease, or unspecified chronic kidney disease; N18.4 Chronic kidney disease, stage 4 (severe); I50.42 Chronic combined systolic (congestive) and diastolic (congestive) heart failure; E11.22 Type 2 diabetes mellitus with diabetic chronic kidney disease; Z79.01 Long term (current) use of anticoagulants; Z79.4 Long term (current) use of insulin
CPT/HCPCS: 36415; 36600; 74176; 80048; 80053; 81001; 82010; 82805; 82948; 83690; 83735; 85025; 85027; 85055; 87086; 87088; 96361; 96365; 96372; 96374; 96375; 96376; 99285; A9270; C9113; G0378; G0379; J0500; J0696; J0780; J1200; J1815; J2270; J7030

== ENCOUNTER 2021-01-18 19:32 | Observation (INO) | payer OTHER, SELFPAY ==
--- NOTE | ~2021-01-18 | CT_ITS ---
EXAMINATION: CT abdomen pelvis wo con DATE: 01/19/2021 03:34 INDICATION: Abdominal pain TECHNIQUE: Computed tomography (CT) of the abdomen and pelvis was performed without intravenous contr ast. Automated exposure control and iterative reconstruction technique were employed. Exam dose: 145 7.92 mGy-cm total exam DLP. COMPARISON: 12/28/2020 CT abdomen pelvis FINDINGS: Cardiomegaly. Minimal pericardial effusion. Small pleural effusions. Minimal atelectasis at the lung bases. The liver, spleen, pancreas, adrenal glands and kidneys are unremarkable on this limited noncontrast examination, with the exception of probable renal cysts. No abdominal aortic aneurysm. No intraperitoneal or retroperitoneal or pelvic mass lesion or adenopat hy or ascites. The exception of asymmetric right ovarian enlargement as noted on 12/28/2020, stable.. Normal appendix. No bowel obstruction, bowel thickening, pneumatosis or intraperitoneal free air. Again noted is calcifications in the right midabdomen, stable since 12/28/2020. IMPRESSION: Cardiomegaly Minimal pericardial effusion Small pleural effusions Minimal atelectasis at the lung bases Possible renal cysts Stable right ovarian enlargement Stable right mid abdominal calcifications, possibly fat necrosis Reviewed, dictated and finalized at [facility]. Reviewed, dictated and finalized at [facility].
--- NOTE | ~2021-01-18 | XR_ITS ---
EXAMINATION: XR chest 1V portable DATE: 01/18/2021 20:06 INDICATION: Abdominal pain. Nausea. TECHNIQUE: A single frontal view of the chest was obtained. COMPARISON: Chest 2 views 03/21/2020, CT abdomen and pelvis 12/28/2020 FINDINGS: There is a diffuse interstitial pattern, consistent with mild pulmonary edema. No pleural e ffusion or pneumothorax. Cardiomegaly is noted. IMPRESSION: 1. Mild pulmonary edema. 2. Cardiomegaly. Reviewed, dictated and finalized at [facility].
[2021-01-18 19:40] VITALS: BP 154/113; PULSE 107; RESP 22; TEMP 36.8; O2SAT 95
--- NOTE | 2021-01-18 19:46 | ED.ABDPAIN ---
HPI - Abdominal Pain General Chief Complaint: Abdominal Pain Stated Complaint: ABD Nausea vomiting Time Seen by Provider: 01/18/21 19:44 History of Present Illness HPI narrative: 40 yo female w/ h/o DM, HTN, ischemic cardiomyopathy, morbid obesity, gastroparesis presents to the ED for Abdominal pain and vomiting. She reports that this has been going on for days. She states that she was never really better since being discharged from the hospital last time. Additionally she report substernal chest pain and SOB. Related Data Home Medications Medication Instructions Recorded Confirmed gabapentin 100 mg PO TID 08/18/19 01/19/21 lamotrigine 50 mg PO DAILY 08/18/19 01/19/21 Januvia 100 mg PO DAILY 03/21/20 01/19/21 clopidogrel 75 mg PO DAILY 03/21/20 01/19/21 furosemide 40 mg PO BID 03/21/20 01/19/21 Lantus U-100 Insulin 25 unit SUBCUT HS 12/28/20 01/19/21 amlodipine [Norvasc] 10 mg PO DAILY 12/28/20 01/19/21 duloxetine [Cymbalta] 30 mg PO DAILY 12/28/20 01/19/21 losartan [Cozaar] 100 mg PO DAILY 12/28/20 01/19/21 omeprazole 40 mg PO DAILY 12/28/20 01/19/21 spironolactone 25 mg PO DAILY 12/28/20 01/19/21 Basaglar KwikPen U-100 Insulin See Rx Instructions .ROUTE .COMPLEX 01/19/21 01/19/21 Entresto 1 tablet PO DAILY 01/19/21 01/19/21 isosorbide mononitrate 30 mg PO QAM 01/19/21 01/19/21 Allergies Allergy/AdvReac Type Severity Reaction Status Date / Time latex Allergy Mild Blister Verified 01/18/21 23:12 adhesive tape AdvReac Unknown Blister Verified 01/18/21 23:12 Review of Systems Review of Systems: All systems reviewed & are unremarkable except as noted in HPI and below Constitutional: Constitutional: Denies fever(s) Cardiovascular: Cardiovascular: Reports chest pain and Denies radiating jaw, neck or arm pain Respiratory: Respiratory: Reports chest congestion, Reports cough and Reports dyspnea Gastrointestinal: Gastrointestinal: Reports abdominal pain, Reports nausea and Reports vomiting Genitourinary: Genitourinary: Reports no additional female genitourinary complaints Musculoskeletal: Musculoskeletal: Reports back pain Neurologic: Reports weakness Endocrine: Endocrine: Denies polyuria PMFSH Past Medical History Medical History Amputation toe left pinky toe Anemia Broken teeth CAD (coronary artery disease) 2013 catheterization: Occluded large diagonal, 50% stenosis of the circumflex 2019: 1 2 stents placed, [facility] in [place] Cardiomyopathy CHF (congestive heart failure) Chronic combined systolic and diastolic CHF (congestive heart failure) Depression with anxiety DVT (deep venous thrombosis) Fibroids Foot fracture, left Gastritis GERD (gastroesophageal reflux disease) GI bleed Heart attack x2 History of angina History of blood transfusion HTN (hypertension) Hyperlipidemia IDDM (insulin dependent diabetes mellitus) Migraine MRSA (methicillin resistant staph aureus) culture positive Nearsightedness Obesity Osteoarthritis PCOS (polycystic ovarian syndrome) Peripheral neuropathy PID (acute pelvic inflammatory disease) PVD (peripheral vascular disease) Sleep apnea Stage 3 chronic kidney disease UTI (urinary tract infection) Yeast infection Surgical History Surgical History H/O bilateral cataract extraction H/O section H/O dilation and curettage H/O hand surgery left tendon repair H/O tubal ligation History of cardiac cath 2 stents Hx of angioplasty Family History Family History Mother Diabetes mellitus Father , age 56 of [place] Heart disease CAD, mi, CHF Social History Social History Social History: , has an 8-year-old son and 6-year-old daughter. Smoking status: Never smoker Alcohol intake: never Subst
--- NOTE | 2021-01-18 19:55 | ECG_ITS ---
Measurements Intervals [place] Rate: 100 P: 149 MI: 193 QRS: -40 QRSD: 116 T: 151 QT: 352 QTc: 456 Interpretive Statements SINUS OR ECTOPIC ATRIAL TACHYCARDIA LEFT ATRIAL ENLARGEMENT LEFT AXIS DEVIATION POOR R WAVE PROGRESSION, ANTERIOR LEADS HIGH LATERAL INFARCT, CONSIDER RECENT BASELINE ARTIFACT- I, II ABNORMAL ECG Electronically Signed On 01-19-2021 7:33:21 CDT by Xavi Harding D.O.
[2021-01-18] MEDS: METOCLOPRAMIDE HCL INJ 10 MG/2 ML VIAL IV PUSH ×2 (20:24→23:04)
[2021-01-18 20:26] VITALS: BP 161/114; PULSE 103; RESP 20
[2021-01-18 20:35] LABS: Basophils Absolute Auto 0.1 K/mm3 (0.0-0.1); Basophils Percent Auto 0.9 % (0.2-1.2); Hematocrit 46.4 % (37.0-47.0); Immature Granulocyte Absolute 0.11 K/mm3 (0.00-0.031); Immature Granulocyte Percent A 0.8 % (0-0.5); Lymphocytes Absolute Auto 0.66 K/mm3 (0.9-3.2); Lymphocytes Percent Auto 4.7 % (18.3-44.2); Mean Corpuscular HGB Conc 30.2 g/dl (32-36); Mean Corpuscular Hemoglobin 26.2 pg (26-34); Mean Corpuscular Volume 86.9 fl (80-100); Mean Platelet Volume 10.6 fl (7.4-10.4); Monocytes Absolute Auto 0.5 K/mm3 (0.1-0.6); Monocytes Percent Auto 3.5 % (2.6-8.5); Neutrophils Absolute Auto 12.6 K/mm3 (1.3-6.7); Neutrophils Percent Auto 90.1 % (45.5-73.1); Platelet Count Result 281 k/mm3 (150-375); Red Blood Count 5.34 M/mm3 (4.2-5.4)
[2021-01-18 20:47] LABS: INR 1.2; Prothrombin Time 15.7 Seconds (11.1-14.7)
[2021-01-18 20:48] LABS: Partial Thromboplastin Time 24.2 SECONDS (22.3-36.8)
[2021-01-18 20:49] LABS: Albumin Level 4.2 g/dL (3.5-5.1); Alkaline Phosphatase 166 U/L (38-126); Anion Gap 17 mmol/L (8-16); Aspartate Amino Transferase 27 U/L (14-36); Bilirubin,Total 1.9 mg/dL (0.2-1.3); Blood Urea Nitrogen 43 mg/dL (7-17); Calcium 9.6 mg/dL (8.4-10.2); Carbon Dioxide 16 mmol/L (22-30); Chloride 106 mmol/L (98-107); Estimated CRCL calculation 26 ml/min; Estimated Glomerular Filt Rate 17; Glucose 221 mg/dL (65-105); Lipase 41 U/L (23-300); Potassium 4.4 mmol/L (3.4-5.0); Sodium 139 mmol/L (137-145)
[2021-01-18 21:07] LABS: Troponin I 0.076 ng/mL (0.000-0.034)
[2021-01-18 21:08] LABS: Alanine Aminotransferase 33 U/L (4-35)
[2021-01-18 21:29] VITALS: BP 149/101; PULSE 102; RESP 20; O2SAT 98
[2021-01-18 22:04] LABS: Add Urine Microscopic? YES; Appearance Urine Cloudy (Clear); Bacteria Urine 2+ /hpf; Bilirubin Urine Negative (Negative); Blood Urine 1+ (Negative); Color Urine Amber (Yellow); Glucose Urine UA Negative (Negative); Ketones Urine Negative (Negative); Leukocyte Esterase Ur Trace LEU/UL (Negative); Mucus Urine Rare /lpf; Nitrate Urine Negative (Negative); Protein Urine 3+ mg/dL (Negative); Specific Grav Ur 1.016 (1.001-1.035); Squamous Epithelial Cell Urine Many /hpf (Few)
[2021-01-18 22:50] VITALS: BP 135/100; PULSE 95; RESP 20; O2SAT 97
[2021-01-19] VITALS (9 sets, daily range): BP systolic 129–148; BP diastolic 89–106; PULSE 80–96; RESP 16–20; TEMP 36.1–36.4; O2SAT 93–100; BMI 39.3
[2021-01-19 01:26] LABS: Glucose Point of Care 193 (65-105)
--- NOTE | 2021-01-19 01:43 | ADMGEN ---
This patient, Michelle Rhoades, was admitted to IMU Room 210-01 at 0105. Patient/family oriented to hospital policies and general routines including ID bracelet, bed and alarms, visiting hours, pain management, procedures, bathroom and other care routines, personal items, smoking policy, room service/diet, and visiting hours. Information on how to activate the Rapid Response Team has been discussed. Patient/Family are encouraged to report perceived risks to care and to ask questions if they do not understand what they are told or what they should do.
[2021-01-19 01:58] LABS: Troponin I 0.104 ng/mL (0.000-0.034)
--- NOTE | 2021-01-19 03:18 | PM.IMHP ---
H&P: HPI History of Present Illness Date/Time: 01/19/21 03:18 Chief Complaint: nausea and vomiting for 2 days+ Narrative: This is a pleasant 40-year-old morbidly obese diabetic female with known past medical history of cardiomyopathy, gastroparesis, GERD, and previous GI bleeding among many other comorbidities who was just recently admitted and treated on our hospitalist service for uncontrolled diabetes about 2 weeks ago and today returned to the hospital with a complaint of 2 days of nausea, vomiting, and diarrhea. The patient reports that she was on antibiotics during her most recent hospitalization as it was thought that she might have a urinary tract infection. Patient reports having multiple episodes of nonbloody emesis over the past 2 days. The patient also reports dark loose stools although she does not believe there is any blood in a.m.. Associated symptoms include diffuse abdominal pain which seems to be greatest on the right side. She denies any chest pain, fevers, chills, dysuria, hematuria, lower extremity swelling, or focal neurological deficits. The patient was evaluated emergency room this evening and routine labs [place] [address] as well as a mildly elevated troponin of 0.076. The patient was treated with metoclopramide and admitted to the hospital for further care. She has no other complaints at this time. Review of Systems Review of Systems: All systems reviewed & are unremarkable except as noted in HPI and below PMFSH Past Medical History Medical History Amputation toe left pinky toe Anemia Broken teeth CAD (coronary artery disease) 2013 catheterization: Occluded large diagonal, 50% stenosis of the circumflex 2019: [facility] [place] Cardiomyopathy CHF (congestive heart failure) Chronic combined systolic and diastolic CHF (congestive heart failure) Depression with anxiety DVT (deep venous thrombosis) Fibroids Foot fracture, left Gastritis GERD (gastroesophageal reflux disease) GI bleed Heart attack x2 History of angina History of blood transfusion HTN (hypertension) Hyperlipidemia IDDM (insulin dependent diabetes mellitus) Migraine MRSA (methicillin resistant staph aureus) culture positive Nearsightedness Obesity Osteoarthritis PCOS (polycystic ovarian syndrome) Peripheral neuropathy PID (acute pelvic inflammatory disease) PVD (peripheral vascular disease) Sleep apnea Stage 3 chronic kidney disease UTI (urinary tract infection) Yeast infection Surgical History Surgical History H/O bilateral cataract extraction H/O section H/O dilation and curettage H/O hand surgery left tendon repair H/O tubal ligation History of cardiac cath 2 stents Hx of angioplasty Family History Family History Mother Diabetes mellitus Father , age 56 of [place] Heart disease CAD, mi, CHF Social History Social History Social History: , has an 8-year-old son and 6-year-old daughter. Smoking status: Never smoker Alcohol intake: never Substance use: never Substance use type: marijuana Other substance usage details: once in awhile Last use: 03/19/2020 Gender identity (if verbalized by the patient): Female Spiritual care concerns: No Agree to blood products: Yes Meds Home Medications and Allergies Home Medications Medication Instructions Recorded Confirmed Type gabapentin 100 mg PO TID 08/18/19 01/19/21 History lamotrigine 50 mg PO DAILY 08/18/19 01/19/21 History Januvia 100 mg PO DAILY 03/21/20 01/19/21 History clopidogrel 75 mg PO DAILY 03/21/20 01/19/21 History furosemide 40 mg PO BID 03/21/20 01/19/21 History dicyclomine 20 mg PO QID #30 tablet 05/30/20 04
[2021-01-19] MEDS: MORPHINE SULFATE (*CRX) 4 MG/ML INJ IV PUSH ×2 (03:48→10:44)
[2021-01-19 04:15] LABS: Troponin I 0.127 ng/mL (0.000-0.034)
[2021-01-19 05:52] LABS: Glucose Point of Care 200 (65-105)
--- NOTE | 2021-01-19 07:57 | ECG_ITS ---
Measurements Intervals [place] Rate: 86 P: 40 FL: 207 QRS: 222 QRSD: 116 T: 15 QT: 402 QTc: 482 Interpretive Statements SINUS RHYTHM WITH FIRST DEGREE AV BLOCK ATRIAL PREMATURE COMPLEX LEFT ATRIAL ENLARGEMENT INTRAVENTRICULAR CONDUCTION DELAY POOR R WAVE PROGRESSION, ANTERIOR LEADS HIGH LATERAL INFARCT, AGE INDETERMINATE ABNORMAL ECG Electronically Signed On 01-19-2021 11:31:39 CDT by Xavi Harding D.O.
[2021-01-19 08:34] LABS: Basophils Percent Auto 0.3 % (0.2-1.2); Hematocrit 37.7 % (37.0-47.0); Hemoglobin 11.6 g/dL (12.0-15.0); Immature Granulocyte Absolute 0.06 K/mm3 (0.00-0.031); Immature Granulocyte Percent A 0.6 % (0-0.5); Lymphocytes Percent Auto 11.2 % (18.3-44.2); Mean Corpuscular HGB Conc 30.8 g/dl (32-36); Mean Corpuscular Hemoglobin 26.3 pg (26-34); Mean Corpuscular Volume 85.5 fl (80-100); Mean Platelet Volume 10.6 fl (7.4-10.4); Monocytes Absolute Auto 0.8 K/mm3 (0.1-0.6); Monocytes Percent Auto 7.5 % (2.6-8.5); Neutrophils Absolute Auto 8.6 K/mm3 (1.3-6.7); Neutrophils Percent Auto 80.4 % (45.5-73.1); Platelet Count Result 206 k/mm3 (150-375); Red Blood Count 4.41 M/mm3 (4.2-5.4); Red Cell Distribution Width 19.2 % (11.5-14.5); White Blood Count 10.7 K/mm3 (4.5-10.0)
[2021-01-19 08:46] LABS: Alanine Aminotransferase 24 U/L (4-35); Albumin Level 3.4 g/dL (3.5-5.1); Alkaline Phosphatase 113 U/L (38-126); Anion Gap 9 mmol/L (8-16); Aspartate Amino Transferase 19 U/L (14-36); Bilirubin,Total 1.2 mg/dL (0.2-1.3); Blood Urea Nitrogen 50 mg/dL (7-17); Calcium 9.3 mg/dL (8.4-10.2); Carbon Dioxide 22 mmol/L (22-30); Chloride 108 mmol/L (98-107); Estimated CRCL calculation 26 ml/min; Estimated Glomerular Filt Rate 17; Glucose 172 mg/dL (65-105); Lipase 25 U/L (23-300); Magnesium 2.1 mg/dL (1.6-2.3); Phosphorus 4.5 mg/dL (2.5-4.5); Potassium 4.7 mmol/L (3.4-5.0); Sodium 139 mmol/L (137-145)
[2021-01-19 08:58] LABS: Troponin I 0.158 ng/mL (0.000-0.034)
[2021-01-19 09:08] LABS: Hemoglobin A1C 6.4 % (<5.7)
[2021-01-19] MEDS: PANTOPRAZOLE SODIUM IV 40 MG VIAL IV PUSH (10:09)
--- NOTE | 2021-01-19 10:50 | PM.CNCAR ---
Assessment and Plan Additional Plan 40-year-old woman with: Elevated troponin level that is in my opinion related to chronic kidney disease. She has a EGFR of 17 and in this setting any time troponin is sampled it will not be within normal range generally speaking. I do not see any clinical evidence of an acute coronary syndrome and she does not need to stay at [facility] for further cardiac workup. She has cardiology care established at the [place] for [facility]. Follow-up in our office therefore would not be necessary or anticipated. From my perspective she can be discharged any time. Tank Valdivia MD [facility] History of Present Illness History of Present Illness Consult date/time: 01/19/21 10:50 Reason For Visit: Chest pain, abdominal pain, vomiting Narrative: This is a 40-year-old woman I am seeing at the request of the hospitalist this morning because of troponinemia. The patient is known to me from a consult when we saw her in March of last year when she was hospitalized here at [facility] also for noncardiac problems. She came to the hospital emergency room apparently last evening because of some abdominal discomfort and vomiting. She recognizes the symptoms as typical of her diabetic gastro paresis and came to the emergency room and she has been admitted here a couple of times recently for these problems. She was not particularly concerned about her heart she does not describe any sense of chest pain worsening shortness of breath orthopnea or PND. She does have a history of coronary artery disease and a significant ischemic cardiomyopathy. She was previously a patient of 1 of the physicians at [facility] in [place]. Because [facility] no longer takes her insurance she recently transferred her care to a physician at [facility], Dr. May. She apparently has an ischemic cardiomyopathy with a low ejection fraction and is on a regimen of medications for that. After she was admitted last night a series of troponin levels were drawn which were very slightly elevated. There is no ECG evidence of an acute coronary syndrome and no symptoms to suggest this. There is no clinical explanation as to why the troponin levels were drawn as far as I can tell. The abnormality out of the labs has however has triggered this consultation. Patient is hopeful to be discharged so she can spend Thursday with her family. For medical regimen for her heart disease consists of amlodipine, clopidogrel, furosemide, isosorbide, losartan, Entresto and spironolactone. I do not see that any of her usual regimen has been reordered while she is in the hospital. She offers no other complaints and feels relatively comfortable this morning. Review of Systems Constitutional: Constitutional: Reports fatigue Eyes: Eyes: Reports no additional eye complaints ENT: Reports system reviewed and no additional complaints, except as documented Cardiovascular: Cardiovascular: Reports as per HPI Respiratory: Respiratory: Reports dyspnea on exertion Gastrointestinal: Gastrointestinal: Reports abdominal pain and Reports vomiting Musculoskeletal: Musculoskeletal: Reports no additional musculoskeletal complaints Integumentary/Breasts: Skin/Breast: Reports system reviewed and no additional complaints, except as docu Neurologic: Reports system reviewed and no additional complaints, except as documented Endocrine: Endocrine: Reports no additional endocrine complaints Hematologic/Lymphatic: Hematologic/Lymphatic: Reports no additional hematologic/lymphatic complaints Allergic/Immunologic: Allergic/Immunologic: Reports no additional allergic/immunologic complaints [facility] Past Medical History Medical History Amputation toe left pinky toe Anemia Broken teeth CAD (coronary artery disease) 2013 catheterization: Occluded large diagonal, 50% stenosis of the circumflex 2019:
[2021-01-19 12:35] LABS: Glucose Point of Care 152 (65-105)
--- NOTE | 2021-01-19 16:03 | PM.DS ---
DS: Admitting Diagnosis Admitting Diagnosis Admitting Diagnosis: Nausea and vomiting DS: Discharge Diagnosis Discharge Diagnosis (1) Abdominal pain: Qualifiers: Abdominal location: generalized Qualified Code(s): R10.84 - Generalized abdominal pain Code(s): R10.9 - Unspecified abdominal pain Status: Acute (2) Nausea & vomiting: Qualifiers: Vomiting Intractability: non-intractable Vomiting type: unspecified Qualified Code(s): R11.2 - Nausea with vomiting, unspecified Code(s): R11.2 - Nausea with vomiting, unspecified Status: Resolved (3) Elevated troponin: Code(s): R79.89 - Other specified abnormal findings of blood chemistry Status: Acute (4) Sepsis: Qualifiers: Sepsis type: sepsis due to unspecified organism Sepsis acute organ dysfunction status: unspecified Qualified Code(s): A41.9 - Sepsis, unspecified organism Code(s): A41.9 - Sepsis, unspecified organism Status: Acute (5) CKD stage 4 due to type 2 diabetes mellitus: Code(s): E11.22 - Type 2 diabetes mellitus with diabetic chronic kidney disease; N18.4 - Chronic kidney disease, stage 4 (severe) Status: Chronic (6) CAD (coronary artery disease): Qualifiers: Coronary Disease-Associated Artery/Lesion type: [place] artery [place] vs. transplanted heart: [place] heart Associated angina: angina presence unspecified Qualified Code(s): I25.10 - Atherosclerotic heart disease of [place] coronary artery without angina pectoris Code(s): I25.10 - Atherosclerotic heart disease of [place] coronary artery without angina pectoris Status: Acute (7) Chronic combined systolic and diastolic CHF (congestive heart failure): Code(s): I50.42 - Chronic combined systolic (congestive) and diastolic (congestive) heart failure Status: Chronic (8) Diabetes: Qualifiers: Diabetes mellitus type: type 1 Diabetes mellitus complication status: with kidney complications Diabetes mellitus complication detail: with chronic kidney disease Chronic kidney disease stage: stage 3 (moderate) Qualified Code(s): E10.22 - Type 1 diabetes mellitus with diabetic chronic kidney disease; N18.3 - Chronic kidney disease, stage 3 (moderate) Code(s): E11.9 - Type 2 diabetes mellitus without complications Status: Chronic (9) HTN (hypertension): Qualifiers: Hypertension type: unspecified Qualified Code(s): I10 - Essential (primary) hypertension Code(s): I10 - Essential (primary) hypertension Status: Chronic DS: Summary Hospital Course Reason for hospitalization: 40yo female with CAD, CHF and DM with gastroparsis here for nausea and vomiting. Please see H&P for details. Hospital Course: Patient was recently discharged from our hospital about 2 weeks ago. She was hospitalized for uncontrolled diabetes. She returns with a 2 day history nausea and vomiting. She also is been having diffuse abdominal pain but no fever or chills. In the emergency room, blood pressure was elevated at 154/113 and was tachycardic at 107. White count is elevated 14,000 but this trended downward on repeat. BUN was 43 and creatinine was 3.0. This is within her baseline. She had bicarb is 16 with anion gap of 17; this improved on repeat as well. Troponin was elevated on admission and climbed to 0.16. EKG showed sinus or ectopic atrial tachycardia with left axis deviation and poor R-wave progression. She had evidence of high lateral infarct with ST T wave changes; on repeat EKG, no changes except improvement in the ST-T wave changes in the high lateral leads. TSH was normal. Lipase was normal. Total bilirubin level was 1.9 and alk-phos 166 but these normalized on repeat. LFTs otherwise within normal limits. Urinalysis showed 3+ protein, 1+ blood, as 10-15 white cells, trace leukocyte Estrace but many squamous epithelial cells. CXR showed mild pulmonary edema and card
--- NOTE | 2021-01-21 07:53 | PC.NURSE ---
urine cx shows growth mixed racquel. Most likely contamination.
== END 2021-01-19 17:38 | disposition home or self-care (01) ==
LOC: ANHED 19:47 → ANHIMU 01-19 03:09
PROVIDERS: Admitting Provider Family Medicine; Emergency Provider Emergency Medicine; PCP Family Medicine; Visit Provider Internal Medicine
DX: R10.84 Generalized abdominal pain (principal); K31.84 Gastroparesis; E11.43 Type 2 diabetes mellitus with diabetic autonomic (poly)neuropathy; E11.22 Type 2 diabetes mellitus with diabetic chronic kidney disease; R79.89 Other specified abnormal findings of blood chemistry; R77.8 Other specified abnormalities of plasma proteins; I25.10 Atherosclerotic heart disease of native coronary artery without angina pectoris; I13.0 Hypertensive heart and chronic kidney disease with heart failure and stage 1 through stage 4 chronic kidney disease, or unspecified chronic kidney disease; N18.4 Chronic kidney disease, stage 4 (severe); I50.42 Chronic combined systolic (congestive) and diastolic (congestive) heart failure; Z79.4 Long term (current) use of insulin
CPT/HCPCS: 36415; 71045; 74176; 80053; 81001; 81025; 83036; 83690; 83735; 84100; 84443; 84484; 85025; 85610; 85730; 87086; 87088; 93005; 96374; 96375; 96376; 99285; C9113; G0378; G0379; J2270; J2765

== ENCOUNTER 2021-02-12 18:30 | Inpatient (IN) | payer OTHER, SELFPAY ==
--- NOTE | ~2021-02-12 | CT_ITS ---
EXAMINATION: CT diagnostic chest wo con DATE: 02/12/2021 21:52 INDICATION: Rule out pneumonia TECHNIQUE: Computed tomography (CT) of the chest was performed without intravenous contrast. Addition al 3D reconstructions utilizing coronal maximum intensity projection (MIP) were performed. Automated exposure control and iterative reconstruction technique were employed. The dose-length product was 55 1.28 mGy-cm. COMPARISON: CT abdomen and pelvis dated 01/19/2021 FINDINGS: Small right pleural effusion. Region of consolidation groundglass opacity in the lateral segment of t he right middle lobe. Additional smaller regions of consolidation in the posterior basilar left lower lobe. Left lung is clear. No pulmonary edema, pneumothorax or left-sided pleural effusion. Mild card iomegaly. Atherosclerotic coronary artery calcifications and likely stenting along the left anterior descending coronary artery. Small pericardial effusion. Thoracic aorta is normal in caliber. No patho logically enlarged thoracic lymphadenopathy. Visualized upper abdomen is unremarkable. Moderate disc height loss with degenerative endplate changes at T8-T9 and 2 mm anterolisthesis T8 and T9. Otherwise mild thoracic spondylosis. IMPRESSION: 1. New regions of consolidation in the right middle and lower lobes, the latter likely related to ate lectasis, the former with appearance more suspicious for either pneumonia or pulmonary infarct. 2. Small right pleural effusion. 3. Cardiomegaly and small pericardial effusion. Reviewed, dictated and finalized at location A. IMPRESSION: 1. New regions of consolidation in the right middle and lower lobes, the latter likely related to atelectasis, the former with appearance more suspicious for either pneumonia or pulmonary infarct. 2. Small right pleural effusion. 3. Cardiomegaly and small pericardial effusion.
--- NOTE | ~2021-02-12 | NM_ITS ---
EXAMINATION: NM pulmonary perfusion EXAM DATE: 02/14/2021 12:01 INDICATION: Elevated d-dimer, abn chest CT . TECHNIQUE: A perfusion lung scan was performed. The patient was injected with 5 mCi technetium 99m M AA and imaged. Modified PIOPED 2 criteria used for interpretation of perfusion without ventilation st udy (recent chest x-ray instead for comparison). Correlation is made to chest x-ray same date. FINDINGS: There is subsegmental defect in the right middle lobe, expected location of the focal airsp gabo disease described on chest CT from 02/12. This region less well-visualized on today's chest x-ray, is improving. No other perfusion defects. IMPRESSION: Very low probability pulmonary embolism. Reviewed, dictated and finalized at location A.
--- NOTE | ~2021-02-12 | US_ITS ---
US abdomen limited INDICATION: Transaminitis PROCEDURE: Realtime right upper abdominal ultrasound. COMPARISON: No prior studies for comparison. FINDINGS: The pancreas is normal without focal mass or pancreatic ductal dilation. Liver echotexture is increased, consistent with fatty infiltration. There is normal directional flow in the portal ve in. There is gallbladder wall thickening measuring 4 mm. Common bile duct measures 4 mm. No sonographic Lopes's sign. IMPRESSION: 1: Gallbladder wall thickening. This could indicate interstitial edema, chronic liver disease or it administrator tre cholecystitis. 2: Hepatic steatosis. Reviewed, dictated and finalized at location B. IMPRESSION: 1: Gallbladder wall thickening. This could indicate interstitial edema, chronic liver disease or chronic cholecystitis. 2: Hepatic steatosis.
--- NOTE | ~2021-02-12 | XR_ITS ---
XR hip RT 2V w AP pelvis, XR femur RT min 2V 02/14/2021 16:00 Indication: Right leg pain after fall Procedure: 3 views right hip including AP pelvis and 2 views right femur Comparison: 02/14/2021 Findings: There is mild bilateral symmetric osteoarthritis of the hips. No acute fracture, subluxatio n or dislocation. No significant soft tissue abnormality. No foreign bodies. Pelvic rings are intact. Sacral foramen are symmetric. Impression: 1: Mild symmetric osteoarthritis of the hips. Reviewed, dictated and finalized at location B. Impression: 1: Mild symmetric osteoarthritis of the hips. Impression: 1: Mild symmetric osteoarthritis of the hips.
--- NOTE | ~2021-02-12 | XR_ITS ---
EXAMINATION: XR chest 1V portable DATE: 02/12/2021 19:21 INDICATION: Congestive heart failure TECHNIQUE: frontal view of the chest was obtained. COMPARISON: Chest radiograph dated 01/18/21 FINDINGS: New focal airspace opacity lateral right lower lung zone. Remainder of the lungs are clear. No pulmon eliz edema or pneumothorax. No blunting at the costophrenic angles to suggest pleural effusion. Cardio megaly. Bones and soft tissues are unremarkable. IMPRESSION: 1. New focal airspace opacity in the right lower lung zone which could represent atelectasis, pneumon ia or small pleural effusion loculated along the fissure. 2. Cardiomegaly. Reviewed, dictated and finalized at location A. IMPRESSION: 1. New focal airspace opacity in the right lower lung zone which could represen t atelectasis, pneumonia or small pleural effusion loculated along the fissure. 2. Cardiomegaly.
--- NOTE | ~2021-02-12 | US_ITS ---
EXAMINATION: US venous doppler [facility] EXAM DATE: 02/13/2021 10:32 INDICATION: Bilateral leg edema. TECHNIQUE: Multiple grayscale, color flow and Doppler images of the lower extremity deep venous syste ms bilaterally were obtained and reviewed. Comparison is made to prior examination from 03/22/2020. FINDINGS: Right side: The right common femoral, femoral and profunda veins demonstrate normal color flow, respi ratory variation, augmentation and compressibility. Compressibility, color flow confirmed within the right popliteal, posterior tibial, peroneal, and greater saphenous veins. Left side: The left common femoral, femoral and profunda veins demonstrate normal color flow, respira tory variation, augmentation and compressibility. Compressibility, color flow confirmed within the l eft popliteal, posterior tibial, peroneal, and greater saphenous veins. IMPRESSION: 1. No lower extremity deep venous thrombosis bilaterally. Reviewed, dictated and finalized at location A.
--- NOTE | ~2021-02-12 | XR_ITS ---
EXAMINATION: XR chest 2V EXAM DATE: 02/14/2021 11:55 INDICATION: NM lung perf, shortness of breath. Lower leg edema. TECHNIQUE: Frontal and lateral projections of the chest obtained and reviewed. Comparison is made to prior examination from 02/12/2021. FINDINGS: Improving previously seen right basilar acute airspace disease. There is cardiomegaly. No pneumothorax or pleural effusion. There are no osseous abnormalities identified. IMPRESSION: 1. Small amount of bibasilar edema or pneumonia, improving. 2. Cardiomegaly. Reviewed, dictated and finalized at location A.
[2021-02-12 18:31] VITALS: BP 149/90; PULSE 98; RESP 17; TEMP 36.6; O2SAT 100
--- NOTE | 2021-02-12 19:12 | ED.EXTPRO ---
HPI - Extremity Problem General Chief complaint: Extremity Problem,Nontraumatic Stated complaint: leg pain Time Seen by Provider: 02/12/21 19:12 Source: patient Mode of arrival: ambulatory Limitations: no limitations History of Present Illness HPI Narrative: Patient is 40 years old white female presents with general weakness and tiredness that started 2 weeks ago, retaining fluid IN the legs with blisters which started 1 week ago. Patient denies any fever, chills, nausea, vomiting, abdominal pain, chest pain, shortness of breath or back pain. Related Data Home Medications Medication Instructions Recorded Confirmed gabapentin 100 mg PO TID 08/18/19 01/19/21 lamotrigine 50 mg PO DAILY 08/18/19 01/19/21 Januvia 100 mg PO DAILY 03/21/20 01/19/21 clopidogrel 75 mg PO DAILY 03/21/20 01/19/21 furosemide 40 mg PO BID 03/21/20 01/19/21 Lantus U-100 Insulin 25 unit SUBCUT HS 12/28/20 01/19/21 amlodipine [Norvasc] 10 mg PO DAILY 12/28/20 01/19/21 duloxetine [Cymbalta] 30 mg PO DAILY 12/28/20 01/19/21 losartan [Cozaar] 100 mg PO DAILY 12/28/20 01/19/21 omeprazole 40 mg PO DAILY 12/28/20 01/19/21 spironolactone 25 mg PO DAILY 12/28/20 01/19/21 Basaglar KwikPen U-100 Insulin See Rx Instructions .ROUTE .COMPLEX 01/19/21 01/19/21 Entresto 1 tablet PO DAILY 01/19/21 01/19/21 isosorbide mononitrate 30 mg PO QAM 01/19/21 01/19/21 Allergies Allergy/AdvReac Type Severity Reaction Status Date / Time piperacillin [From Zosyn] Allergy Rash Verified 02/12/21 18:49 tazobactam [From Zosyn] Allergy Rash Verified 02/12/21 18:49 adhesive tape AdvReac Unknown Blister Verified 02/12/21 18:35 Review of Systems Review of Systems: Narrative: CONSTITUTIONAL: Denies fever, chills, or sweats. EYES: Denies visual changes, redness, or discharge. ENT: Denies rhinorrhea, congestion, sore throat, or otalgia. CARDIOVASCULAR: Denies chest pain, palpitations, or edema. RESPIRATORY: Denies cough or dyspnea. GASTROINTESTINAL: Denies abdominal pain, nausea, vomiting, or diarrhea. GENITOURINARY: Denies dysuria or hematuria. SKIN: Denies rash or itching. MUSCULOSKELETAL: Denies back pain, joint pain, or myalgia. NEUROLOGIC: Denies headache, numbness, or weakness. PSYCHIATRIC: Denies anxiety or depression. [facility] Past Medical History Medical History Amputation toe left pinky toe Anemia Broken teeth CAD (coronary artery disease) 2013 catheterization: Occluded large diagonal, 50% stenosis of the circumflex 2019: 1 2 stents placed, [facility] in [place] Cardiomyopathy CHF (congestive heart failure) Chronic combined systolic and diastolic CHF (congestive heart failure) Depression with anxiety DVT (deep venous thrombosis) Fibroids Foot fracture, left Gastritis GERD (gastroesophageal reflux disease) GI bleed Heart attack x2 History of angina History of blood transfusion HTN (hypertension) Hyperlipidemia IDDM (insulin dependent diabetes mellitus) Migraine MRSA (methicillin resistant staph aureus) culture positive Nearsightedness Obesity Osteoarthritis PCOS (polycystic ovarian syndrome) Peripheral neuropathy PID (acute pelvic inflammatory disease) PVD (peripheral vascular disease) Sleep apnea Stage 3 chronic kidney disease UTI (urinary tract infection) Yeast infection Surgical History Surgical History H/O bilateral cataract extraction H/O section H/O dilation and curettage H/O hand surgery left tendon repair H/O tubal ligation History of cardiac cath 2 stents Hx of angioplasty Family History Family History Mother Diabetes mellitus Father , age 56 of [place] Heart disease CAD, mi, CHF Social History Social History Social History: , has an 8-year-old son and 6-year-old daughter. Smoking statu
--- NOTE | 2021-02-12 19:15 | ECG_ITS ---
Measurements Intervals [place] Rate: 92 P: 15 ND: 191 QRS: 242 QRSD: 116 T: 48 QT: 357 QTc: 443 Interpretive Statements SINUS RHYTHM BORDERLINE AV CONDUCTION DELAY LEFT ATRIAL ENLARGEMENT INTRAVENTRICULAR CONDUCTION DELAY POOR R WAVE PROGRESSION, CONSIDER ANTERIOR INFARCT HIGH LATERAL INFARCT, AGE INDETERMINATE BASELINE ARTIFACT- I, II, III, AVL, V5-V6 ABNORMAL ECG Electronically Signed On 02-12-2021 19:52:54 CDT by Xavi Harding D.O.
[2021-02-12 20:44] LABS: Basophils Absolute Auto 0.1 K/mm3 (0.0-0.1); Basophils Percent Auto 0.8 % (0.2-1.2); Eosinophils Absolute Auto 0.1 K/mm3 (0-0.3); Eosinophils Percent Auto 0.7 % (0-4.4); Hemoglobin 11.9 g/dL (12.0-15.0); Immature Granulocyte Absolute 0.06 K/mm3 (0.00-0.031); Immature Granulocyte Percent A 0.5 % (0-0.5); Lymphocytes Absolute Auto 1.67 K/mm3 (0.9-3.2); Mean Corpuscular HGB Conc 29.8 g/dl (32-36); Mean Corpuscular Hemoglobin 24.2 pg (26-34); Mean Corpuscular Volume 81.5 fl (80-100); Mean Platelet Volume 11.1 fl (7.4-10.4); Monocytes Percent Auto 8.1 % (2.6-8.5); Neutrophils Percent Auto 75.9 % (45.5-73.1); Platelet Count Result 185 k/mm3 (150-375); Red Blood Count 4.91 M/mm3 (4.2-5.4); Red Cell Distribution Width 20.7 % (11.5-14.5); White Blood Count 11.9 K/mm3 (4.5-10.0)
[2021-02-12 20:53] LABS: INR 1.2; Prothrombin Time 16.1 Seconds (11.1-14.7)
[2021-02-12 20:55] LABS: Alanine Aminotransferase 23 U/L (4-35); Albumin Level 3.4 g/dL (3.5-5.1); Alkaline Phosphatase 108 U/L (38-126); Anion Gap 6 mmol/L (8-16); Aspartate Amino Transferase 26 U/L (14-36); Bilirubin,Total 1.5 mg/dL (0.2-1.3); Blood Urea Nitrogen 50 mg/dL (7-17); Calcium 8.7 mg/dL (8.4-10.2); Carbon Dioxide 27 mmol/L (22-30); Chloride 105 mmol/L (98-107); Estimated Glomerular Filt Rate 20; Glucose 193 mg/dL (65-105); Sodium 138 mmol/L (137-145)
[2021-02-12 21:03] LABS: NT Pro B Type Natriuretic Pept > 35000 pg/mL (5-100)
[2021-02-12 22:04] LABS: Add Urine Microscopic? YES; Appearance Urine Cloudy (Clear); Bacteria Urine Trace /hpf; Bilirubin Urine Negative (Negative); Blood Urine 1+ (Negative); Color Urine Yellow (Yellow); Glucose Urine UA Negative (Negative); Ketones Urine Negative (Negative); Leukocyte Esterase Ur Trace LEU/UL (Negative); Mucus Urine Rare /lpf; Nitrate Urine Negative (Negative); Protein Urine 3+ mg/dL (Negative); Specific Grav Ur 1.015 (1.001-1.035); Squamous Epithelial Cell Urine Many /hpf (Few)
[2021-02-12 22:21] VITALS: BP 151/111; PULSE 100; RESP 20; TEMP 37; O2SAT 100
[2021-02-12] MEDS: FUROSEMIDE INJ 40 MG/4 ML VIAL IV PUSH (22:40)
[2021-02-12] MEDS: levoFLOXacin 500 MG/D5W 100 ML 500 MG/100 ML BAG 100 MG IVPB (22:41)
[2021-02-12] MEDS: LORazepam INJ (*CRX) 2 MG/ML VIAL 1 MG IV PUSH (22:44)
[2021-02-12] MEDS: ONDANSETRON INJ 4 MG/2 ML VIAL IV PUSH (22:47)
[2021-02-12 23:24] VITALS: BP 113/97; PULSE 95; RESP 18; O2SAT 95
--- NOTE | 2021-02-12 23:51 | ADMGEN ---
This patient, Michelle Rhoades, was admitted to [facility] Surg Room 324-40 [id number] . Patient/family oriented to hospital policies and general routines including ID bracelet, bed and alarms, visiting hours, pain management, procedures, bathroom and other care routines, personal items, smoking policy, room service/diet, and visiting hours. Information on how to activate the Rapid Response Team has been discussed. Patient/Family are encouraged to report perceived risks to care and to ask questions if they do not understand what they are told or what they should do.
[2021-02-13] VITALS (8 sets, daily range): BP systolic 112–159; BP diastolic 73–114; PULSE 80–99; RESP 14–20; TEMP 36.5–37; O2SAT 96–100; BMI 41.3
[2021-02-13] MEDS: METOCLOPRAMIDE HCL INJ 10 MG/2 ML VIAL IV PUSH (02:25)
[2021-02-13] MEDS: LORazepam INJ (*CRX) 2 MG/ML VIAL (04:13)
[2021-02-13] MEDS: traMADol HCL (*CRX) 50 MG TABLET PO (04:14)
--- NOTE | 2021-02-13 05:59 | PCRCNOTE ---
PT was asked if she would like a cpap while she is here she said no thank you. RN also said she doesn't wear her cpap at home.
[2021-02-13 06:39] LABS: Basophils Absolute Auto 0.1 K/mm3 (0.0-0.1); Basophils Percent Auto 0.9 % (0.2-1.2); Eosinophils Absolute Auto 0.1 K/mm3 (0-0.3); Eosinophils Percent Auto 0.6 % (0-4.4); Hematocrit 38.7 % (37.0-47.0); Hemoglobin 11.5 g/dL (12.0-15.0); Immature Granulocyte Absolute 0.06 K/mm3 (0.00-0.031); Immature Granulocyte Percent A 0.5 % (0-0.5); Lymphocytes Percent Auto 20.7 % (18.3-44.2); Mean Corpuscular HGB Conc 29.7 g/dl (32-36); Mean Corpuscular Hemoglobin 24.5 pg (26-34); Mean Corpuscular Volume 82.5 fl (80-100); Mean Platelet Volume 10.7 fl (7.4-10.4); Monocytes Absolute Auto 1.2 K/mm3 (0.1-0.6); Monocytes Percent Auto 10.4 % (2.6-8.5); Neutrophils Absolute Auto 7.8 K/mm3 (1.3-6.7); Neutrophils Percent Auto 66.9 % (45.5-73.1); Platelet Count Result 166 k/mm3 (150-375); Red Blood Count 4.69 M/mm3 (4.2-5.4); Red Cell Distribution Width 20.5 % (11.5-14.5); White Blood Count 11.6 K/mm3 (4.5-10.0)
[2021-02-13 06:53] LABS: Alanine Aminotransferase 22 U/L (4-35); Albumin Level 3.2 g/dL (3.5-5.1); Alkaline Phosphatase 97 U/L (38-126); Anion Gap 7 mmol/L (8-16); Aspartate Amino Transferase 24 U/L (14-36); Bilirubin,Total 1.6 mg/dL (0.2-1.3); Blood Urea Nitrogen 51 mg/dL (7-17); Calcium 8.8 mg/dL (8.4-10.2); Carbon Dioxide 24 mmol/L (22-30); Chloride 106 mmol/L (98-107); Estimated CRCL calculation 31 ml/min; Estimated Glomerular Filt Rate 20; Glucose 141 mg/dL (65-105); Sodium 137 mmol/L (137-145)
[2021-02-13] MEDS: FUROSEMIDE INJ 40 MG/4 ML VIAL IV PUSH ×2 (09:07→20:02)
[2021-02-13 09:14] LABS: Glucose Point of Care 141 (65-105)
--- NOTE | 2021-02-13 09:55 | PM.IMHP ---
H&P: HPI History of Present Illness Date/Time: 02/13/21 09:55 Chief Complaint: Lower extremity edema Narrative: Date of admission: 02/12/2021 Date of service: 02/05/2021 Michelle Rhoades is a 40-year-old female history of coronary artery disease with recent TX in October 2020 s/p angioplasty and cardiac catheterization with 1 stent placed in October, combined systolic and diastolic heart failure, hypertension, hyperlipidemia, insulin-dependent diabetes mellitus, and multiple other comorbidities who presented to the emergency department on 02/12/2021 with complaints of blisters on her legs. She noted that over the past couple of days at home, her legs became more edematous and she had small fluid-filled blisters on her shins that were painful to her. She endorses orthopnea and PND but otherwise denied any new onset respiratory symptoms including shortness of breath, cough, or wheezing. She denies chest pain. Upon presentation to the emergency department, her blood pressure was elevated at 140 9/90 with additional vital signs stable, she was afebrile, she had mild leukocytosis of 11.9, additional CBC unremarkable, BUN and creatinine slightly elevated with additional electrolytes stable, BNP was >[id number], CXR showed new focal airspace opacity which could represent atelectasis, pneumonia, or small loculated pleural effusion as well as cardiomegaly, and chest CT showed consolidation in the right middle and lower lobes suspicious for pneumonia or pulmonary infarct. During my encounter, she had 3 apneic episodes within about 5 minutes. She states this usually happens 1 or 2 times per day at home. She does not use her CPAP machine at home because she cannot sleep with it. She denies fever or chills. She was very drowsy during my encounter and fell asleep mid sentence multiple times. She is being admitted to the hospitalist service for observation. Supervising physician for this history and physical is Dr. Aris Li. Review of Systems Review of Systems: Narrative: All systems reviewed with pertinent positives and negatives as per HPI. Additionally, patient endorses right hip pain that has been ongoing for a couple of weeks. She also has low back pain. She endorses mild nausea but has not vomited. She denies any urinary symptoms. She has been having regular bowel movements. Her appetite has been good. She denies numbness or tingling in her extremities. She denies confusion. No headaches or body aches. No abdominal pain, cramping, or bloating. FORMERLY [facility], 1928–1983 Past Medical History Medical History (Updated 02/13/21 @ 10:14 by Micheline Haney PA-C) Amputation toe left pinky toe Anemia Broken teeth CAD (coronary artery disease) 2013 catheterization: Occluded large diagonal, 50% stenosis of the circumflex 2019: [facility] [place] Cardiomyopathy Chronic combined systolic and diastolic CHF (congestive heart failure) Depression with anxiety DVT (deep venous thrombosis) Fibroids Foot fracture, left Gastritis GERD (gastroesophageal reflux disease) GI bleed Heart attack x2 History of blood transfusion HTN (hypertension) Hyperlipidemia IDDM (insulin dependent diabetes mellitus) Migraine MRSA (methicillin resistant staph aureus) culture positive Nearsightedness Obesity Osteoarthritis PCOS (polycystic ovarian syndrome) Peripheral neuropathy PID (acute pelvic inflammatory disease) PVD (peripheral vascular disease) Sleep apnea Untreated; not on CPAP Stage 3 chronic kidney disease Surgical History Surgical History H/O bilateral cataract extraction H/O section H/O dilation and curettage H/O hand surgery left tendon repair H/O tubal ligation History of cardiac cath 2 stents Hx of angioplasty Family History Family History Mother Diabetes mellitus Father , ag
[2021-02-13 10:05] LABS: Alveolar/Arterial O2 Gradient 29.3 mmHg; Base Excess ABG -0.4 mEq/l (+/-2.0); Fractional Inspired Oxygen 21 %; HCO3 ABG 23.8 mEq/l (22.0-26.0); Oxygen Content ABG 16.4 %vol (16.0-22.0); Oxygen Saturation ABG 95.4 % (95.0-100.0); Oxyhemoglobin 92.8 % THb (90.0-100.0); PCO2 ABG 37.6 mmHg (35.0-45.0); PO2 ABG 75.4 mmHg (80.0-100.0); PO2 FiO2 Ratio Arterial Blood 3.59 %; Total Hemoglobin 12.5 g/dL (12.0-18.0)
[2021-02-13 10:06] LABS: Device ROOM AIR; Modified Allen's Test Pass; Site Drawn LEFT RADIAL
[2021-02-13 10:40] LABS: D Dimer 1.48 ug/mL (<0.48)
[2021-02-13 11:43] LABS: Glucose Point of Care 147 (65-105)
--- NOTE | 2021-02-13 12:55 | PM.CNPUL ---
Assessment and Plan Assessment and plan (1) LOS on CPAP: Code(s): G47.33 - Obstructive sleep apnea (adult) (pediatric); Z99.89 - Dependence on other enabling machines and devices Status: Acute Assessment and Plan: Patient tells me she has a history of LOS on CPAP but does not know her DME company or her CPAP settings. Patient is currently lethargic and sleepy secondary to her medical illnesses and Ativan administration in the emergency department. I have prescribed auto Pap 5-15 at this point. Patient had a blood gas that was 7.42/38/75 on room air so there is no evidence of hypercarbic respiratory failure at this time. (2) Dyspnea: Code(s): R06.00 - Dyspnea, unspecified Status: Acute Assessment and Plan: Etiology of patient's dyspnea includes fluid overload, congestive heart failure, pulmonary embolism, and I doubt pneumonia. I agree with Lasix as tolerated by cardiac and renal systems. Patient has a positive D-dimer with negative lower extremity Dopplers and a creatinine of 2.6. At this time I will obtain a V/Q scan to assess for pulmonary embolism. Of note patient did have a history of DVT and is possible that her current radiologic infiltrates are from an old pulmonary infarct. Will follow with you. History of Present Illness History of Present Illness Consult date: 02/13/21 Requesting physician: Micheline Haney PA-C Reason for consult: obstructive sleep apnea Chief complaint: CHF, pneumonia, CKD, anxiety Narrative: This is a 40-year-old with a history of congestive heart failure, DVT treated with warfarin which was discontinued for GI bleeding, obstructive sleep apnea on CPAP, chronic renal disease, who presented to the emergency department on 02/12 with weakness leg swelling and denied any shortness of breath at that time. Patient was found to have a BNP greater than 35,[address] scan with consolidation the right middle lobe and right lower lobe consistent with pneumonia or atelectasis or pulmonary infarct. Patient was treated for fluid overload and given Lasix and admitted to the floor. Of note patient did require Ativan in the emergency department. 02/13 the patient was on the floor and lethargic. She also had witnessed obstructive sleep apnea events. Patient's room air saturations were 99-100%. A stat ABG was performed which demonstrated a pH of 7.42/38/75. A D-dimer was obtained and is elevated at 1.48 and a V/Q scan is ordered. Patient had lower extremity Dopplers which were negative for DVT. When I spoke to the patient she was lethargic but told me she wear CPAP at home and did not know her [employer] company or her settings. I prescribed auto PAP 5-15. Review of Systems Review of Systems: Narrative: Unable to obtain as patient is lethargic. [facility] Past Medical History Medical History (Updated 02/13/21 @ 13:03 by Tank Boyce MD) Amputation toe left pinky toe Anemia Broken teeth CAD (coronary artery disease) 2013 catheterization: Occluded large diagonal, 50% stenosis of the circumflex 2019: 1 2 stents placed, [facility] in [place] Cardiomyopathy Chronic combined systolic and diastolic CHF (congestive heart failure) Depression with anxiety DVT (deep venous thrombosis) Fibroids Foot fracture, left Gastritis GERD (gastroesophageal reflux disease) GI bleed Heart attack x2 History of blood transfusion HTN (hypertension) Hyperlipidemia IDDM (insulin dependent diabetes mellitus) Migraine MRSA (methicillin resistant staph aureus) culture positive Nearsightedness Obesity Osteoarthritis PCOS (polycystic ovarian syndrome) Peripheral neuropathy PID (acute pelvic inflammatory disease) PVD (peripheral vascular disease) Sleep apnea Untreated; not on CPAP Stage 3 chronic kidney disease Surgical History Surgical History H/O bilateral cataract extraction H/O section H/O dil
[2021-02-13] MEDS: ONDANSETRON INJ 4 MG/2 ML VIAL IV PUSH (15:11)
--- NOTE | 2021-02-13 15:45 | PM.CNCAR ---
Assessment and Plan Assessment and plan (1) Acute on chronic HFrEF (heart failure with reduced ejection fraction): Code(s): I50.23 - Acute on chronic systolic (congestive) heart failure Status: Acute Assessment and Plan: Question compliance, however, management complicated by multiple comorbidities and complicated diabetes mellitus. No doubt, noncompliance with CPAP a significant contributor to risk for decompensated failure, poor quality of life. - Continue IV Lasix 40 mg IV q.12 hours. Accurate input and output, daily weight. Less than 1500 mg sodium intake. Monitor renal function electrolytes closely. If patient is not tolerating diuresis either due to symptomatic hypotension, acute renal failure or poor response inotropic therapy with Dobutamine may be considered. At this time, however, on exam this patient does not appear to be severely hypoperfused. 2D echocardiogram pending. recommendations to follow. Continue Entresto as renal function permits. Losartan has been discontinued which must not be taking concomitantly. Hypertension a concern discontinue amlodipine and isosorbide mononitrate. Strongly favor re-initiation of carvedilol once patient is further stabilized from a CHF perspective. Overall, very complicated management given patient's multiple severe comorbidities with multiorgan system involvement. Spent 52 minutes in the care of this patient including care at bedside and chart review, decision making. (2) Cardiomyopathy: Qualifiers: Cardiomyopathy type: unspecified Qualified Code(s): I42.9 - Cardiomyopathy, unspecified Code(s): I42.9 - Cardiomyopathy, unspecified Status: Acute Assessment and Plan: as above, last evaluation severe LV dysfunction EF 15-20%. History of ischemic cardiomyopathy without acute anginal symptoms at this time. (3) CAD (coronary artery disease): Qualifiers: Coronary Disease-Associated Artery/Lesion type: [place] artery [place] vs. transplanted heart: [place] heart Associated angina: angina presence unspecified Qualified Code(s): I25.10 - Atherosclerotic heart disease of [place] coronary artery without angina pectoris Code(s): I25.10 - Atherosclerotic heart disease of [place] coronary artery without angina pectoris Status: Acute Assessment and Plan: Stable, continue clopidogrel, statin therapy. As above, beta-martin therapy beneficial. (4) CKD stage 4 due to type 2 diabetes mellitus: Code(s): E11.22 - Type 2 diabetes mellitus with diabetic chronic kidney disease; N18.4 - Chronic kidney disease, stage 4 (severe) Status: Chronic Assessment and Plan: patient essentially at her baseline. Continue to monitor closely. Accurate input and output, daily weights. (5) LOS on CPAP: Code(s): G47.33 - Obstructive sleep apnea (adult) (pediatric); Z99.89 - Dependence on other enabling machines and devices Status: Acute Assessment and Plan: Critically important for stabilization. Discussed in detail. Patient was asleep when we entered the room without auto Pap in place. (6) HTN (hypertension): Qualifiers: Hypertension type: unspecified Qualified Code(s): I10 - Essential (primary) hypertension Code(s): I10 - Essential (primary) hypertension Status: Chronic Assessment and Plan: Hypertensive at presentation improved with therapy. Continue to monitor closely. (7) Uncontrolled diabetes mellitus: Code(s): E11.65 - Type 2 diabetes mellitus with hyperglycemia Status: Acute Assessment and Plan: Management per primary service. Initiation and Farxiga would be beneficial with regards to cardiovascular is a poor in heart failure a problematic given patient's history of DKA and renal failure. History of Present Illness History of Present Illness Consult date/time: Date of service: 02/13/21 15:45 Cardiology consultation at the request
[2021-02-13 17:34] LABS: Glucose Point of Care 211 (65-105)
[2021-02-13] MEDS: INSULIN ASPART (*BKC) 100 UNITS/ML SUB-Q (17:58)
[2021-02-13 18:21] LABS: SARS-CoV-2 RNA PCR Negative
[2021-02-13] MEDS: INSULIN GLARGINE (*BKC) 100 UNITS/ML 20 UNITS SUB-Q (20:12)
[2021-02-13 21:32] LABS: Glucose Point of Care 193 (65-105)
[2021-02-14] VITALS (14 sets, daily range): BP systolic 122–148; BP diastolic 81–99; PULSE 88–116; RESP 14–20; TEMP 36.4–37.1; O2SAT 98–100
--- NOTE | 2021-02-14 | ECHO_ITS ---
Patient Info Name: Michelle Rhoades Age: 40 years : 1980 Gender: Female Ht: 64 in Wt: 240 lbs BSA: 2.27 m2 HR: 86 bpm BP: 139 / 9 mmHg Heart Rhythm: Sinus Rhythm Technical Quality: Good Exam Date: 02/14/2021 1:20 PM Exam Location: [facility] Patient Status: Inpatient Admit Date: 02/12/2021 Staff Ordering Physician: Micheline Haney PA-C Medicaid Specialist: Laith Lopes RDCS, RT Attending Provider: Micheline Haney PA-C Referring Physician: Lyndon LIZ; Exam Type: CA echo doppler color flow Study Info Indications I50.40 - Unspecified combined systolic (congestive) and diastolic (congestive) heart failure Complete two-dimensional, color flow and Doppler transthoracic echocardiogram is performed. Strain analysis performed. Summary 1. Complete two-dimensional, color flow and Doppler transthoracic echocardiogram is performed. 2. Left ventricular chamber dimension is moderately enlarged. 3. Left ventricular systolic function is severely reduced, estimated at 15-20%. 4. Left ventricular septal wall motion is abnormal with septal motion related to bundle branch block. 5. Left atrial chamber dimension is moderately enlarged. 6. There is mild aortic valve sclerosis. 7. There is mild aortic valve stenosis with a peak velocity of 139 cm/s, mean gradient of 4 mmHg, and aortic valve area of 1.2 cm2 overestimated due to low cardiac output. 8. There is mild to moderate mitral valve regurgitation. 9. There is mild tricuspid valve regurgitation. 10. Moderate pulmonary hypertension, estimated pulmonary arterial systolic pressure is 52 mmHg. 11. Normal inferior vena cava with <50% collapse upon inspiration consistent with elevated right atrial pressure, 10 mmHg. 12. There is a small pericardial effusion without tamponade physiology. Left Ventricle Left ventricular chamber dimension is moderately enlarged. Left ventricular systolic function is severely reduced, estimated at 15-20%. There is no increased left ventricular wall thickness. Left ventricular septal wall motion is abnormal with septal motion related to bundle branch block. The left ventricular diastolic function is abnormal. Right Ventricle Right ventricular chamber dimension is normal. Right ventricular systolic function is reduced. Left Atria Left atrial chamber dimension is moderately enlarged. Right Atria Right atrial chamber dimension is mildly enlarged. Aortic Valve The aortic valve is not well visualized. There is mild aortic valve sclerosis. There is mild aortic valve stenosis with a peak velocity of 139 cm/s, mean gradient of 4 mmHg, and aortic valve area of 1.2 cm2 overestimated due to low cardiac output. There is trace aortic valve regurgitation. Pulmonic Valve The pulmonic valve is not well visualized. There is mild pulmonic regurgitation. Mitral Valve The mitral valve has normal leaflets. There is mild to moderate mitral valve regurgitation. Tricuspid Valve The tricuspid valve leaflets are normal. There is mild tricuspid valve regurgitation. Moderate pulmonary hypertension, estimated pulmonary arterial systolic pressure is 52 mmHg. Pericardium/Pleural The pericardium appears normal. There is a small pericardial effusion without tamponade physiology. Inferior Vena Cava Normal inferior vena cava with <50% collapse upon inspiration consistent with elevated right atrial pressure, 10 mmHg. Aorta The aortic root size at the sinus of Valsalva is normal. Left Ve
[2021-02-14] MEDS: ONDANSETRON INJ 4 MG/2 ML VIAL IV PUSH (04:19)
--- NOTE | 2021-02-14 04:27 | PC.NURSE ---
Patient incredibly anxious overnight with multiple calls just crying and dry heaving from crying. She has continually asked for medicine because everything hurts but is unable to state what and where, she got IV tylenol at the beginning of my shift and fell asleep for a long period of time after... Upon waking up she began flipping out saying she needs something for her nerves... I gave her zofran for her complaint of feeling nauseated and will continue to monitor her. I read in the reports that we need to try and stay clear of narcotics and benzos due to her having sleep apnea and refusing to wear CPAP. Will continue to manage this patient with orders in her MAR. -CHRISTOPHER RN
[2021-02-14 06:05] LABS: Hematocrit 39.9 % (37.0-47.0); Hemoglobin 11.9 g/dL (12.0-15.0); Mean Corpuscular HGB Conc 29.8 g/dl (32-36); Mean Corpuscular Hemoglobin 24.5 pg (26-34); Mean Corpuscular Volume 82.3 fl (80-100); Mean Platelet Volume 11.3 fl (7.4-10.4); Platelet Count Result 188 k/mm3 (150-375); Red Blood Count 4.85 M/mm3 (4.2-5.4); Red Cell Distribution Width 20.9 % (11.5-14.5); White Blood Count 11.8 K/mm3 (4.5-10.0)
[2021-02-14 06:31] LABS: Alanine Aminotransferase 106 U/L (4-35); Albumin Level 3.1 g/dL (3.5-5.1); Alkaline Phosphatase 102 U/L (38-126); Anion Gap 5 mmol/L (8-16); Aspartate Amino Transferase 265 U/L (14-36); Bilirubin,Total 2.1 mg/dL (0.2-1.3); Blood Urea Nitrogen 52 mg/dL (7-17); Calcium 9.4 mg/dL (8.4-10.2); Carbon Dioxide 29 mmol/L (22-30); Chloride 104 mmol/L (98-107); Estimated CRCL calculation 28 ml/min; Estimated Glomerular Filt Rate 17; Glucose 109 mg/dL (65-105); Potassium 4.1 mmol/L (3.4-5.0); Sodium 138 mmol/L (137-145)
[2021-02-14 07:59] LABS: Glucose Point of Care 119 (65-105)
[2021-02-14] MEDS: PANTOPRAZOLE 40 MG TABLET PO (09:32)
[2021-02-14] MEDS: CLOPIDOGREL BISULFATE 75 MG TABLET PO (09:32)
[2021-02-14] MEDS: lamoTRIgine 25 MG TABLET 50 MG PO (09:32)
[2021-02-14] MEDS: amLODIPine BESYLATE 5 MG TABLET 10 MG PO (09:33)
[2021-02-14 10:07] LABS: Lipase 42 U/L (23-300)
--- NOTE | 2021-02-14 10:13 | PM.PNPUL ---
Progress Note: A&P Assessment and Plan (1) LOS on CPAP: Code(s): G47.33 - Obstructive sleep apnea (adult) (pediatric); Z99.89 - Dependence on other enabling machines and devices Status: Acute Assessment and Plan: 02/13 Patient tells me she has a history of LOS on CPAP but does not know her DME company or her CPAP settings. Patient is currently lethargic and sleepy secondary to her medical illnesses and Ativan administration in the emergency department. I have prescribed auto Pap 5-15 at this point. Patient had a blood gas that was 7.42/38/75 on room air so there is no evidence of hypercarbic respiratory failure at this time. 02/14 RA sats 99-100%. Did not tolerate auto PAP last night, states she can't breath especially when lays flat. Patient wore Auto PAP during day yesterday and at 00:20 she refused treatment. She did not have he sleep study in our system and does not know her DME company to get information. I tried to call 2 phonenumbers in chart but no success talking to family. Family has no transportation to bring in machine and will attempt to get DME information from machine to call DME and get settings. She states she does not use machine at home because she can't breath with it on. Will try alternative mode today to see if this will allow her to wear respiratory support. Spoke with RT. (2) Dyspnea: Code(s): R06.00 - Dyspnea, unspecified Status: Acute Assessment and Plan: 02/13 Etiology of patient's dyspnea includes fluid overload, congestive heart failure, pulmonary embolism, and I doubt pneumonia. I agree with Lasix as tolerated by cardiac and renal systems. Patient has a positive D-dimer with negative lower extremity Dopplers and a creatinine of 2.6. At this time I will obtain a V/Q scan to assess for pulmonary embolism. Of note patient did have a history of DVT and is possible that her current radiologic infiltrates are from an old pulmonary infarct. 02/14 V/Q delayed as can't lay flat for study. Low clinical suspision, RA sats 99-100% and no hypercarbia. Cr worse ot 3.00 despite lasix. Likely right heart failure (RV modeately enlarged with moderate gloibal dysfunction on echo 03/22/2020. Await current echo but I favor trial of dobutamine at this time. Will follow with you. Subjective Date/time seen: 02/14/21 10:13 Interval history: This is a 40-year-old with a history of congestive heart failure, DVT treated with warfarin which was discontinued for GI bleeding, obstructive sleep apnea on CPAP, chronic renal disease, who presented to the emergency department on 02/12 with weakness leg swelling and denied any shortness of breath at that time. Patient was found to have a BNP greater than 35,[address] scan with consolidation the right middle lobe and right lower lobe consistent with pneumonia or atelectasis or pulmonary infarct. Patient was treated for fluid overload and given Lasix and admitted to the floor. Of note patient did require Ativan in the emergency department. 02/13 the patient was on the floor and lethargic. She also had witnessed obstructive sleep apnea events. Patient's room air saturations were 99-100%. A stat ABG was performed which demonstrated a pH of 7.42/38/75. A D-dimer was obtained and is elevated at 1.48 and a V/Q scan is ordered. Patient had lower extremity Dopplers which were negative for DVT. When I spoke to the patient she was lethargic but told me she wear CPAP at home and did not know her DME company or her settings. I prescribed auto PAP 5-15. 02/14 patient more awake today. Patient wore Auto PAP during day yesterday and at 00:20 she refused treatment. She did not have he sleep study in our system and does not know her DME company to get information. I called mother and spoke with and machine sticker is [employer] ([phone]). states she has had machine for 1.5 years, does not know where her sleep study wsperfomred and that she us
[2021-02-14] MEDS: FUROSEMIDE INJ 40 MG/4 ML VIAL IV PUSH ×2 (11:01→21:15)
[2021-02-14] MEDS: PROCHLORPERAZINE EDISYLATE 10 MG/2 ML VIAL IV PUSH ×2 (11:01→17:16)
[2021-02-14 11:53] LABS: Hepatitis B Surface Antigen Negative (Negative)
[2021-02-14 11:59] LABS: HAV RESULT Negative (Negative); Hepatitis B Core IgM Result Negative (Negative)
[2021-02-14 12:07] LABS: Glucose Point of Care 134 (65-105)
[2021-02-14] MEDS: SACUBITRIL/VALSARTAN 49-51 MG TABLET 1 TABLET PO (12:07)
[2021-02-14] MEDS: SUCRALFATE 1 GM TABLET PO ×3 (12:07→21:01)
[2021-02-14] MEDS: SPIRONOLACTONE 25 MG TABLET PO (12:07)
[2021-02-14 12:11] LABS: Hepatitis C Virus Antibody Negative (Negative)
--- NOTE | 2021-02-14 14:49 | PM.IMPN ---
Progress Note: A&P Assessment and Plan (1) Acute on chronic systolic (congestive) heart failure: Code(s): I50.23 - Acute on chronic systolic (congestive) heart failure Status: Acute Assessment and Plan: Presented with complaints of increased lower extremity edema, compliance with medication regimen. BNP >35,000. Prior echo in March 2020 estimated EF of 15-20% and grade II diastolic dysfunction. Continue with Lasix 40 mg IV b.i.d. Monitor renal function closely while diuresing She has been initiated on dobutamine per Cardiology recommendations. Will transfer to IMU for close monitoring. Continue spironolactone 25 mg daily Echocardiogram has been ordered. Awaiting interpretation. Heart healthy diet with 1500 mg sodium restriction Monitor intake and output closely, weigh daily Cardiology is managing. Consultation is appreciated. (2) LOS (obstructive sleep apnea): Code(s): G47.33 - Obstructive sleep apnea (adult) (pediatric) Status: Acute Assessment and Plan: On 02/13 she was lethargic with witnessed apneic episodes. She has a history of untreated obstructive sleep apnea, stating she cannot tolerate CPAP machine as she cannot sleep when using it. Prior echo in March 2020 unable to assess pulmonary pressure. No evidence of hypercarbic respiratory failure based on ABG. Unable to tolerate auto PAP yesterday Pulmonology is managing. Consultation is appreciated. Continuing BiPAP with change in settings to see if she is able to tolerate this Avoid narcotics and benzodiazepines and other medications that put her at risk for respiratory depression (3) Abnormal chest CT: Code(s): R93.89 - Abnormal findings on diagnostic imaging of other specified body structures Status: Acute Assessment and Plan: CXR on presentation showed new focal airspace opacity right lower lung zone which could represent atelectasis, pneumonia, or small loculated pleural effusion along the fissure.Follow-up chest CT showed new consolidation in right middle and lower lobes with appearance suspicious for pneumonia or pulmonary infarct as well as small right pleural effusion. She denies respiratory symptoms. PE considered, however given her renal function, she is not a candidate to undergo CTA. She had an elevated d-dimer, therefore VQ scan was ordered with low pre-test probability given lack of respiratory symptoms and negative venous doppler. VQ results with very low probability of PE. She received 1 dose of IV Levaquin at presentation. Bacterial pneumonia seems less likely given lack of respiratory symptoms or fever. Mild leukocytosis noted, however appears chronic on review of prior labs. COVID negative. Blood cultures pending. Do not feel that antibiotics are warranted at this time. She is maintaining adequate oxygenation on room air. (4) Chronic renal failure, stage 3 (moderate): Code(s): N18.3 - Chronic kidney disease, stage 3 (moderate) Status: Acute Assessment and Plan: Baseline creatinine is variable, ranging from 2.6-3.0. GFR is 20. Renal function is consistent with baseline at 3.0. Monitor renal function closely, especially with diuresis (5) HTN (hypertension): Qualifiers: Hypertension type: unspecified Qualified Code(s): I10 - Essential (primary) hypertension Code(s): I10 - Essential (primary) hypertension Status: Chronic Assessment and Plan: Blood pressures reviewed and were initially elevated with diastolic in the 100s,likely due to volume overload. Anticipate improvement in blood pressure with diuresis. Last BP 148/81 Continue Lasix IV 40 mg b.i.d. Resume amlodipine and entresto as BP allows Monitor blood pressure trends (6) IDDM (insulin dependent diabetes mellitus): Code(s): E11.9 - Type 2 diabetes mellitus without complications; Z79.4 - intermediate card tender (current) use of insulin Status: Acute Assessment and Plan:
--- NOTE | 2021-02-14 15:38 | PM.PNCARD ---
Progress Note: A&P Assessment and Plan (1) Acute on chronic HFrEF (heart failure with reduced ejection fraction): Code(s): I50.23 - Acute on chronic systolic (congestive) heart failure Status: Acute Assessment and Plan: PT is not responding to therapy thus far, remains volume overloaded with evidence of biventricular failure with worsening renal and hepatic function. Add Inotrope Dobutamine 2.5mcg/kg/min, transfer to IMU on telemetry. Accurate I&O, daily weight. -ICD/destination therapy to be clarified but is followed at [place] with Dr. May. -Echo personally reviewed severe LV systolic dysfxn EF 15-20%. -Plan to resume Carvedilol as tolerated once off Dobutamine. Consider tx to [facility] if hemodynamically less stable. PT at high risk with multiorgan dysfunction and now worsening LFT's. -Continue Spironolactone 25mg daily. -Would prefer to stop nitrates, however, h/o anginal sxs. Nonetheless, from CHF perspective of no longer term benefit. - Continue IV Lasix 40 mg IV q.12 hours. Less than 1500 mg sodium intake. Monitor renal function electrolytes closely. Reduce Entresto to 24/26mg BID, although may need to hold if hypotension or progressive renal failure.Overall, very complicated management given patient's multiple severe comorbidities with multiorgan system involvement. PT is very ill with guarded prognosis. (2) Cardiomyopathy: Qualifiers: Cardiomyopathy type: unspecified Qualified Code(s): I42.9 - Cardiomyopathy, unspecified Code(s): I42.9 - Cardiomyopathy, unspecified Status: Acute Assessment and Plan: as above, last evaluation severe LV dysfunction EF 15-20%. History of ischemic cardiomyopathy without acute anginal symptoms at this time. (3) CAD (coronary artery disease): Qualifiers: Coronary Disease-Associated Artery/Lesion type: [place] artery [place] vs. transplanted heart: [place] heart Associated angina: angina presence unspecified Qualified Code(s): I25.10 - Atherosclerotic heart disease of [place] coronary artery without angina pectoris Code(s): I25.10 - Atherosclerotic heart disease of [place] coronary artery without angina pectoris Status: Acute Assessment and Plan: Stable, continue clopidogrel, statin therapy. As above, beta-martin therapy beneficial. (4) CKD stage 4 due to type 2 diabetes mellitus: Code(s): E11.22 - Type 2 diabetes mellitus with diabetic chronic kidney disease; N18.4 - Chronic kidney disease, stage 4 (severe) Status: Chronic Assessment and Plan: Acute on chronic renal failure as above complicated by low cardiac output. (5) LOS on CPAP: Code(s): G47.33 - Obstructive sleep apnea (adult) (pediatric); Z99.89 - Dependence on other enabling machines and devices Status: Acute Assessment and Plan: Critically important for stabilization. Discussed in detail. Patient was asleep when we entered the room without auto Pap in place. Appreciate pulmonology involvement and recommendations. Consider BiPAP. (6) HTN (hypertension): Qualifiers: Hypertension type: unspecified Qualified Code(s): I10 - Essential (primary) hypertension Code(s): I10 - Essential (primary) hypertension Status: Chronic Assessment and Plan: Unexpected degree of HTN given marked LV dysfunction on medical therapy. Close observation. (7) Uncontrolled diabetes mellitus: Code(s): E11.65 - Type 2 diabetes mellitus with hyperglycemia Status: Acute Assessment and Plan: Management per primary service. Initiation and Farxiga would be beneficial with regards to cardiovascular is a poor in heart failure a problematic given patient's history of DKA and renal failure. (8) Transaminitis: Code(s): R74.01 - Elevation of levels of liver transaminase levels Status: Acute Subjective Date/time seen: Date of service: 02/14/21 15:38 Follow-up for decompensated heart failu
[2021-02-14] MEDS: ISOSORBIDE MONONITRATE 30 MG TAB.ER.24H PO (16:00)
[2021-02-14 16:40] LABS: Glucose Point of Care 121 (65-105)
--- NOTE | 2021-02-14 18:03 | PC.NURSE ---
This patient, Michelle Rhoades, was transferred to [facility] on 02/14/21 at 1750. Personal belongings sent with patient. Report given to Gayla. Appropriate documentation sent with patient.
[2021-02-14] MEDS: DOBUTamine 250 MG/D5W 250 ML 250 MG/250 ML BAG 16.98 MG IV CONT (18:13)
--- NOTE | 2021-02-14 18:31 | PC.NURSE ---
1747- pt arrived from 3rd floor to room 203- pt oriented to room and rountines of floor- - Monitor on SR 90's - BP stable- 1809- Up to [facility]-sm loose yellow /brownish stool- Micheline BAKER called and notified of pt c/o of diarrhea 1814- Dobutamine drip started at 2.5mcg/kg/min as ordered- Left FA site- pt educated on medication- and pt verbalized understanding
[2021-02-14 20:14] LABS: Glucose Point of Care 267 (65-105)
[2021-02-14] MEDS: SACCHAROMYCES BOULARDII 250 MG CAPSULE PO (21:01)
[2021-02-14] MEDS: SACUBITRIL/VALSARTAN 24-26 MG TABLET 1 TAB PO (21:02)
[2021-02-14] MEDS: INSULIN GLARGINE (*BKC) 100 UNITS/ML 20 UNITS SUB-Q (21:21)
[2021-02-14] MEDS: ACETAMINOPHEN 325 MG TABLET 650 MG PO (21:24)
[2021-02-15] VITALS (19 sets, daily range): BP systolic 124–151; BP diastolic 84–97; PULSE 79–112; RESP 14–24; TEMP 35.7–37.2; O2SAT 99–100
[2021-02-15] MEDS: PROCHLORPERAZINE EDISYLATE 10 MG/2 ML VIAL IV PUSH (00:10)
[2021-02-15 05:20] LABS: Hematocrit 37.4 % (37.0-47.0); Hemoglobin 11.1 g/dL (12.0-15.0); Mean Corpuscular HGB Conc 29.7 g/dl (32-36); Mean Corpuscular Hemoglobin 24.3 pg (26-34); Mean Corpuscular Volume 81.8 fl (80-100); Mean Platelet Volume 10.9 fl (7.4-10.4); Platelet Count Result 185 k/mm3 (150-375); Red Blood Count 4.57 M/mm3 (4.2-5.4); Red Cell Distribution Width 20.7 % (11.5-14.5)
[2021-02-15 05:29] LABS: Alanine Aminotransferase 115 U/L (4-35); Albumin Level 3.1 g/dL (3.5-5.1); Alkaline Phosphatase 91 U/L (38-126); Anion Gap 5 mmol/L (8-16); Aspartate Amino Transferase 147 U/L (14-36); Bilirubin,Total 1.4 mg/dL (0.2-1.3); Blood Urea Nitrogen 56 mg/dL (7-17); Calcium 8.8 mg/dL (8.4-10.2); Carbon Dioxide 30 mmol/L (22-30); Chloride 102 mmol/L (98-107); Estimated CRCL calculation 29 ml/min; Estimated Glomerular Filt Rate 18; Glucose 92 mg/dL (65-105); Potassium 3.7 mmol/L (3.4-5.0); Sodium 137 mmol/L (137-145)
[2021-02-15] MEDS: SUCRALFATE 1 GM TABLET PO ×4 (05:41→20:13)
[2021-02-15 07:58] LABS: Glucose Point of Care 88 (65-105)
[2021-02-15] MEDS: ACETAMINOPHEN 325 MG TABLET 650 MG PO (09:40)
[2021-02-15] MEDS: FUROSEMIDE INJ 40 MG/4 ML VIAL IV PUSH ×2 (09:40→20:13)
[2021-02-15] MEDS: SACCHAROMYCES BOULARDII 250 MG CAPSULE PO ×3 (09:40→17:10)
--- NOTE | 2021-02-15 09:40 | PM.PNPUL ---
Progress Note: A&P Assessment and Plan (1) LOS on CPAP: Code(s): G47.33 - Obstructive sleep apnea (adult) (pediatric); Z99.89 - Dependence on other enabling machines and devices Status: Acute Assessment and Plan: 02/13 Patient tells me she has a history of LOS on CPAP but does not know her DME company or her CPAP settings. Patient is currently lethargic and sleepy secondary to her medical illnesses and Ativan administration in the emergency department. I have prescribed auto Pap 5-15 at this point. Patient had a blood gas that was 7.42/38/75 on room air so there is no evidence of hypercarbic respiratory failure at this time. 02/14 RA sats 99-100%. Did not tolerate auto PAP last night, states she can't breath especially when lays flat. Patient wore Auto PAP during day yesterday and at 00:20 she refused treatment. She did not have he sleep study in our system and does not know her DME company to get information. I tried to call 2 phonenumbers in chart but no success talking to family. Family has no transportation to bring in machine and will attempt to get DME information from machine to call DME and get settings. She states she does not use machine at home because she can't breath with it on. Will try alternative mode today to see if this will allow her to wear respiratory support. Spoke with RT. 02/15 I obtain more information from her DME company. Patient had a home sleep study on 12/21/2018 that showed an AHI of 7.3. Mean oxygen saturation was 97% with lowest oxygen saturation 79%. When speaking to the [employer] there is no data of any use of her machine after April of 2020. A download from 01/28/2022 04/27/2020 demonstrates usage greater than 4 hours a night at 0 of 90 days. Patient used the machine 5 days total average usage was 2 hours and 9 minutes she was on a CPAP 11. Her median leak was 11.3 and her AHI is listed as 0.0. Last night the patient refused to wear any CPAP or BiPAP. She was maintained on room air and had saturations of 100%. When I spoke to her this morning I educated her on the severity of her medical condition and the requirement for CPAP to control her obstructive sleep apnea. I told the patient that she would continue to deteriorate without treatment with CPAP. Patient understood this and stated she would not wear CPAP in the hospital or at home in the future. We discussed other options for the treatment of obstructive sleep apnea including tracheostomy which she does not want. I also informed her that she could look into a dental appliance as an outpatient to see if this would help manage her obstructive sleep apnea as her AHI was 7.3 indicating mild obstructive sleep apnea in 2019. If she changes her mind and will wear CPAP she should wear CPAP 11 while awaiting an outpatient CPAP titration to ensure CPAP 11 is adequate. Will sign off. Please schedule patient for outpatient follow up in pulmonary clinic ([phone]). Discussed with Micheline Haney (2) Dyspnea: Code(s): R06.00 - Dyspnea, unspecified Status: Acute Assessment and Plan: 02/13 Etiology of patient's dyspnea includes fluid overload, congestive heart failure, pulmonary embolism, and I doubt pneumonia. I agree with Lasix as tolerated by cardiac and renal systems. Patient has a positive D-dimer with negative lower extremity Dopplers and a creatinine of 2.6. At this time I will obtain a V/Q scan to assess for pulmonary embolism. Of note patient did have a history of DVT and is possible that her current radiologic infiltrates are from an old pulmonary infarct. 02/14 V/Q delayed as can't lay flat for study. Low clinical suspision, RA sats 99-100% and no hypercarbia. Cr worse ot 3.00 despite lasix. Likely right heart failure (RV modeately enlarged with moderate gloibal dysfunction on echo 03/22/2020. Await current echo but I favor trial of dobutamine at this time. 02/15 on dobutamine ovenright, Cr 2.9. Echo with right an left
[2021-02-15] MEDS: lamoTRIgine 25 MG TABLET 50 MG PO (09:41)
[2021-02-15] MEDS: ISOSORBIDE MONONITRATE 30 MG TAB.ER.24H PO (09:41)
[2021-02-15] MEDS: CLOPIDOGREL BISULFATE 75 MG TABLET PO (09:41)
[2021-02-15] MEDS: SACUBITRIL/VALSARTAN 24-26 MG TABLET 1 TAB PO ×2 (09:41→20:13)
[2021-02-15] MEDS: amLODIPine BESYLATE 5 MG TABLET 10 MG PO (09:41)
[2021-02-15] MEDS: PANTOPRAZOLE 40 MG TABLET PO (09:41)
[2021-02-15] MEDS: SPIRONOLACTONE 25 MG TABLET PO (09:41)
[2021-02-15] MEDS: DOBUTamine 250 MG/D5W 250 ML 250 MG/250 ML BAG 16.98 MG IV CONT ×2 (09:46→22:04)
--- NOTE | 2021-02-15 10:57 | PM.IMPN ---
Progress Note: A&P Assessment and Plan (1) Acute on chronic systolic (congestive) heart failure: Code(s): I50.23 - Acute on chronic systolic (congestive) heart failure Status: Acute Assessment and Plan: Presented with complaints of increased lower extremity edema, likely due to poor compliance with medication regimen. BNP >35,000. Prior echo in March 2020 estimated EF of 15-20% and grade II diastolic dysfunction. Echo repeated 02/14/2021 shows EF of 15-20% as well as evidence of small pericardial effusion without tamponade physiology. She has significant volume overload with evidence of multi organ system dysfunction. Continue with Lasix 40 mg IV b.i.d. Monitor renal function closely while diuresing Continue with dobutamine per Cardiology recommendations. Continue spironolactone 25 mg daily Heart healthy diet with 1500 mg sodium restriction Monitor intake and output closely, weigh daily Cardiology is managing. Consultation is appreciated. (2) LOS (obstructive sleep apnea): Code(s): G47.33 - Obstructive sleep apnea (adult) (pediatric) Status: Acute Assessment and Plan: On 02/13 she was lethargic with witnessed apneic episodes. She has a history of untreated obstructive sleep apnea, stating she cannot tolerate CPAP machine. Data from home CPAP showed no use since April 2020. No evidence of hypercarbic respiratory failure based on ABG. Echo demonstrates moderate pulmonary HTN. She refused BiPAP or CPAP yesterday. Pulmonology following. Consultation is appreciated. BiPAP or CPAP recommended but pt refuses. If she is agreeable to CPAP, start at 11 based on most recent study. I will continue to impress upon the patient how imperative use of CPAP is. Avoid narcotics and benzodiazepines and other medications that put her at risk for respiratory depression (3) Abnormal chest CT: Code(s): R93.89 - Abnormal findings on diagnostic imaging of other specified body structures Status: Acute Assessment and Plan: CXR on presentation showed new focal airspace opacity right lower lung zone which could represent atelectasis, pneumonia, or small loculated pleural effusion along the fissure.Follow-up chest CT showed new consolidation in right middle and lower lobes with appearance suspicious for pneumonia or pulmonary infarct as well as small right pleural effusion. She denies respiratory symptoms. PE considered, however given her renal function, she is not a candidate to undergo CTA. She had an elevated d-dimer, therefore VQ scan was ordered with low pre-test probability given lack of respiratory symptoms and negative venous doppler. VQ results with very low probability of PE. She received 1 dose of IV Levaquin at presentation. Bacterial pneumonia seems less likely given lack of respiratory symptoms or fever. Mild leukocytosis noted, however appears chronic on review of prior labs. COVID negative. Blood cultures pending. Do not feel that antibiotics are warranted. She is maintaining adequate oxygenation on room air. Recommend follow up chest CT in 2-3 months for evaluation of infiltrate. (4) Chronic renal failure, stage 3 (moderate): Code(s): N18.3 - Chronic kidney disease, stage 3 (moderate) Status: Acute Assessment and Plan: Baseline creatinine is variable, ranging from 2.6-3.0. GFR is 20. Renal function is consistent with baseline at 2.9. Monitor renal function closely, especially in light of acute CHF exacerbation and diuresis (5) HTN (hypertension): Qualifiers: Hypertension type: unspecified Qualified Code(s): I10 - Essential (primary) hypertension Code(s): I10 - Essential (primary) hypertension Status: Chronic Assessment and Plan: Blood pressures reviewed and were initially elevated with diastolic in the 100s,likely due to volume overload. Last BP 140/97. Close monitoring of blood pressure with treatment of CHF as above. C
[2021-02-15 12:05] LABS: Glucose Point of Care 203 (65-105)
[2021-02-15] MEDS: INSULIN ASPART (*BKC) 100 UNITS/ML SUB-Q ×2 (12:36→17:10)
[2021-02-15 16:35] LABS: Glucose Point of Care 202 (65-105)
--- NOTE | 2021-02-15 17:00 | PM.PNCARD ---
Progress Note: A&P Assessment and Plan (1) Acute on chronic HFrEF (heart failure with reduced ejection fraction): Code(s): I50.23 - Acute on chronic systolic (congestive) heart failure Status: Acute Assessment and Plan: PT improved clinically. -Continue Dobutamine 2.5mcg/kg/min for now. Accurate I&O, daily weight. -ICD referral to EP at [place] already placed by Dr. May. -Echo personally reviewed severe LV systolic dysfxn EF 15-20%. -Plan to resume Carvedilol as tolerated once off Dobutamine. Consider tx to [facility] if hemodynamically less stable. PT at high risk with multiorgan dysfunction and now worsening LFT's. -Continue Spironolactone 25mg daily. -Would prefer to stop nitrates and amlodipine as appropriate. Pt denies anginal sxs. -Continue IV Lasix 40 mg IV q.12 hours. Less than 1500 mg sodium intake. Monitor renal function electrolytes closely. -Entresto reduced temporarily to 24/26mg BID, although may need to hold if hypotension or progressive renal failure. -patient remains very ill with slight improvement today. (2) Cardiomyopathy: Qualifiers: Cardiomyopathy type: unspecified Qualified Code(s): I42.9 - Cardiomyopathy, unspecified Code(s): I42.9 - Cardiomyopathy, unspecified Status: Acute Assessment and Plan: as above, last evaluation severe LV dysfunction EF 15-20%. History of ischemic cardiomyopathy without acute anginal symptoms at this time. (3) CAD (coronary artery disease): Qualifiers: Coronary Disease-Associated Artery/Lesion type: [place] artery [place] vs. transplanted heart: [place] heart Associated angina: angina presence unspecified Qualified Code(s): I25.10 - Atherosclerotic heart disease of [place] coronary artery without angina pectoris Code(s): I25.10 - Atherosclerotic heart disease of [place] coronary artery without angina pectoris Status: Acute Assessment and Plan: Stable, continue clopidogrel, statin therapy. As above, beta-martin therapy beneficial. (4) CKD stage 4 due to type 2 diabetes mellitus: Code(s): E11.22 - Type 2 diabetes mellitus with diabetic chronic kidney disease; N18.4 - Chronic kidney disease, stage 4 (severe) Status: Chronic Assessment and Plan: Acute on chronic renal failure as above complicated by low cardiac output. (5) LOS on CPAP: Code(s): G47.33 - Obstructive sleep apnea (adult) (pediatric); Z99.89 - Dependence on other enabling machines and devices Status: Acute Assessment and Plan: Explained this in detail once again. States she may be interested with nasal pillow CPAP. Critically important for stabilization. Defer to pulmonology. (6) HTN (hypertension): Qualifiers: Hypertension type: unspecified Qualified Code(s): I10 - Essential (primary) hypertension Code(s): I10 - Essential (primary) hypertension Status: Chronic Assessment and Plan: Unexpected degree of HTN given marked LV dysfunction on medical therapy. Close observation. (7) Uncontrolled diabetes mellitus: Code(s): E11.65 - Type 2 diabetes mellitus with hyperglycemia Status: Acute Assessment and Plan: Management per primary service. Initiation and Farxiga would be beneficial with regards to cardiovascular is a poor in heart failure a problematic given patient's history of DKA and renal failure. (8) Transaminitis: Code(s): R74.01 - Elevation of levels of liver transaminase levels Status: Acute Assessment and Plan: Improving on dobutamine. Continue to monitor. Subjective Date/time seen: Date of service: 02/15/21 10:00 Follow-up for CHF Feels a little better this morning, less short of breath. Feels fatigued. No chest pain. Tolerating dobutamine. Urine output has increased. No fevers, chills. Did not wear CPAP. Review of Systems Review of Systems: All systems reviewed & are unremarkable except as noted in HPI and be
[2021-02-15] MEDS: INSULIN GLARGINE (*BKC) 100 UNITS/ML 20 UNITS SUB-Q (20:10)
[2021-02-15 20:43] LABS: Glucose Point of Care 217 (65-105)
[2021-02-16] VITALS: PULSE 96
[2021-02-16] MEDS: diphenhydrAMINE HCl CAP 25 MG CAPSULE PO (00:16)
[2021-02-16] MEDS: GABAPENTIN 100 MG CAPSULE PO ×2 (00:17→08:32)
[2021-02-16 02:00] VITALS: PULSE 103
[2021-02-16 04:00] VITALS: BP 130/100; PULSE 103; PULSE 110; RESP 18; TEMP 36.1; O2SAT 100
[2021-02-16 05:16] LABS: Hematocrit 37.9 % (37.0-47.0); Hemoglobin 11.7 g/dL (12.0-15.0); Mean Corpuscular HGB Conc 30.9 g/dl (32-36); Mean Corpuscular Hemoglobin 24.7 pg (26-34); Mean Platelet Volume 11.4 fl (7.4-10.4); Platelet Count Result 197 k/mm3 (150-375); Red Blood Count 4.74 M/mm3 (4.2-5.4); Red Cell Distribution Width 21.2 % (11.5-14.5); White Blood Count 12.9 K/mm3 (4.5-10.0)
[2021-02-16 05:28] LABS: Alanine Aminotransferase 93 U/L (4-35); Albumin Level 3.2 g/dL (3.5-5.1); Alkaline Phosphatase 101 U/L (38-126); Anion Gap 5 mmol/L (8-16); Aspartate Amino Transferase 82 U/L (14-36); Bilirubin,Total 1.3 mg/dL (0.2-1.3); Blood Urea Nitrogen 48 mg/dL (7-17); Calcium 8.5 mg/dL (8.4-10.2); Carbon Dioxide 36 mmol/L (22-30); Chloride 96 mmol/L (98-107); Estimated CRCL calculation 32 ml/min; Estimated Glomerular Filt Rate 20; Glucose 155 mg/dL (65-105); Potassium 3.7 mmol/L (3.4-5.0); Sodium 137 mmol/L (137-145)
[2021-02-16 06:00] VITALS: PULSE 105
[2021-02-16] MEDS: SUCRALFATE 1 GM TABLET PO (06:08)
--- NOTE | 2021-02-16 07:35 | PM.PNCARD ---
Progress Note: A&P Additional Plan 40-year-old lady with severe left ventricular systolic dysfunction has care established downtown at [place]. She came to this hospital because of increasing lower extremity edema to the point of weeping fluid. That has been improve sufficiently and she would like to be discharged today. It is probably reasonable to do so since is probably not realistic that all of her edema will be resolved with medical therapy given the severity of her cardiomyopathy. I am going to stop the dobutamine infusion at this time and also transition her back to her p.o. Lasix regimen. She was instructed to make appointments with and be compliant with follow-up at [place]. Tank Valdivia MD LOCATED WITHIN [facility] Subjective Date/time seen: Date of service: 02/16/21 07:35 Interval history: Follow-up visit in this 41-year-old lady with: Severe dilated cardiomyopathy with significant lower extremity edema to the point were her legs were weeping so she presented here for evaluation and treatment. She was placed on intravenous furosemide and also dobutamine a couple of days ago by Dr. Martin. Patient states today that she is feeling much better. She is happy with the results of her diuresis and her lower extremities are no longer a problem. They still are edematous but she believes they are essentially at her baseline. She would like to and is asking to be discharged. She does have care arranged with Cardiology at [facility]. She believes she probably missed her last appointment and she was told by myself that follow-up and compliance with office follow-up is extremely important in preventing subsequent hospitalizations here. Exam Const: General: comfortable and no acute distress Other: Pleasant white female watching television no distress HENMT: Mouth: Yes moist mucous membranes Eyes: Sclera: sclerae normal Pupils: Equal, round and reactive pupils present Neck: Neck: supple and no JVD Thyroid: thyroid normal Resp: Effort & Inspection: normal respiratory effort Auscultation: clear to auscultation bilaterally Cardio: Rate: regular rate Rhythm: regular rhythm Other: PMI is enlarged in the anterior axillary line GI: GI Palp: Yes Soft to palpation Auscultation: normal bowel sounds Skin: General skin exam: normal color Neuro: Cognition (Neuro): normal cognition Extrem: Other: 2+ soft pitting edema bilaterally. No weeping Objective Data Vital Signs Vital Signs: Vital Signs - 24 hr 02/15/21 08:00 02/15/21 08:44 02/15/21 09:46 Temperature 35.7 C L Pulse Rate 102 H 101 H 110 H Respiratory Rate 24 H Blood Pressure 140/97 H Pulse Oximetry 100 02/15/21 10:00 02/15/21 12:00 02/15/21 12:15 Temperature 36.1 C L Pulse Rate 105 H 100 100 Respiratory Rate 20 Blood Pressure 136/86 Pulse Oximetry 99 02/15/21 14:00 02/15/21 16:00 02/15/21 16:56 Temperature 35.7 C L Pulse Rate 112 H 99 101 H Respiratory Rate 22 H Blood Pressure 131/84 Pulse Oximetry 99 02/15/21 18:00 02/15/21 19:29 02/15/21 20:00 Temperature 35.7 C L Pulse Rate 102 H 98 99 Respiratory Rate 20 Blood Pressure 131/86 Pulse Oximetry 100 02/15/21 22:00 02/15/21 22:04 02/15/21 23:47 Temperature 36.4 C L Pulse Rate 105 H 101 H 79 Respiratory Rate 20 Blood Pressure 124/93 H Pulse Oximetry 100 02/16/21 00:00 02/16/21 02:00 02/16/21 04:00 Temperature 36.1 C L Pulse Rate 96 103 H 110 H Respiratory Rate 18 Blood Pressure 130/100 H Pulse Oximetry 100 02/16/21 06:00 Temperature Pulse Rate 105 H Respiratory Rate Blood Pressure Pulse Oximetry Intake/Output Intake/Output: Intake & Output 02/13/21 02/14/21 02/15/21 02/16/21 23:59 23:59 23:59 23:59 Intake Total 960 1080 2270 500 Output Total 500 4675 1900 Balance [phone] Meds/Results Medications: Active Medications Generic Name Dose Route Start Last Admin Trade Name Freq PRN Reason S
[2021-02-16 08:00] VITALS: BP 127/64; PULSE 77; PULSE 97; RESP 20; TEMP 36.2; O2SAT 100
[2021-02-16 08:29] LABS: Glucose Point of Care 115 (65-105)
[2021-02-16] MEDS: FUROSEMIDE 40 MG TABLET PO (08:32)
[2021-02-16] MEDS: SACUBITRIL/VALSARTAN 24-26 MG TABLET 1 TAB PO (08:34)
[2021-02-16] MEDS: lamoTRIgine 25 MG TABLET 50 MG PO (08:34)
[2021-02-16] MEDS: ISOSORBIDE MONONITRATE 30 MG TAB.ER.24H PO (08:34)
[2021-02-16] MEDS: SACCHAROMYCES BOULARDII 250 MG CAPSULE PO (08:34)
[2021-02-16] MEDS: amLODIPine BESYLATE 5 MG TABLET 10 MG PO (08:34)
[2021-02-16] MEDS: PANTOPRAZOLE 40 MG TABLET PO (08:35)
[2021-02-16] MEDS: CLOPIDOGREL BISULFATE 75 MG TABLET PO (08:35)
[2021-02-16] MEDS: SPIRONOLACTONE 25 MG TABLET PO (08:35)
--- NOTE | 2021-02-16 09:17 | PM.DS ---
DS: Admitting Diagnosis Admitting Diagnosis Admitting Diagnosis: Acute on chronic systolic CHF DS: Discharge Diagnosis Discharge Diagnosis (1) Acute on chronic systolic (congestive) heart failure: Code(s): I50.23 - Acute on chronic systolic (congestive) heart failure Status: Acute Assessment and Plan: Presented with complaints of increased lower extremity edema, likely due to poor compliance with medication regimen and diet. BNP >35,000. Prior echo in March 2020 estimated EF of 15-20% and grade II diastolic dysfunction. Echo repeated 02/14/2021 shows EF of 15-20% as well as evidence of small pericardial effusion without tamponade physiology. She had significant volume overload with evidence of multi organ system dysfunction. She was seen in consultation by cardiology who managed this. She was diuresed with IV Lasix 40 mg BID and was started on dobutamine per Cardiology recommendations. She had symptomatic improvement with diuresis. Dobutamine was discontinued given her improvement. 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. (2) LOS (obstructive sleep apnea): Code(s): G47.33 - Obstructive sleep apnea (adult) (pediatric) Status: Acute Assessment and Plan: On 02/13 she was lethargic with witnessed apneic episodes. She has a history of untreated obstructive sleep apnea, stating she cannot tolerate CPAP machine. Data from home CPAP showed no use since April 2020. No evidence of hypercarbic respiratory failure based on ABG. She was started on BiPAP with improvement in her symptoms, but later refused. Echo demonstrated moderate pulmonary HTN. She refused BiPAP or CPAP yesterday. She was seen in consultation by pulmonology. She continued to refuse BiPAP or CPAP. I discussed with her the importance of compliance with CPAP. She indicated that she would like to consider nasal pillow CPAP. I told her that she needs to be on her CPAP until this can be arranged. She will need to follow up with pulmonology as an outpatient. . (3) Abnormal chest CT: Code(s): R93.89 - Abnormal findings on diagnostic imaging of other specified body structures Status: Acute Assessment and Plan: CXR on presentation showed new focal airspace opacity right lower lung zone which could represent atelectasis, pneumonia, or small loculated pleural effusion along the fissure.Follow-up chest CT showed new consolidation in right middle and lower lobes with appearance suspicious for pneumonia or pulmonary infarct as well as small right pleural effusion. She denies respiratory symptoms. PE considered, however given her renal function, she is not a candidate to undergo CTA. She had an elevated d-dimer, therefore VQ scan was ordered with low pre-test probability given lack of respiratory symptoms and negative venous doppler. VQ results with very low probability of PE. She received 1 dose of IV Levaquin at presentation. Bacterial pneumonia seems less likely given lack of respiratory symptoms or fever. Mild leukocytosis noted, however appears chronic on review of prior labs. COVID negative. Blood cultures negative to date. Antibiotics not felt to be warranted. She did not require supplemental oxygen. She was seen in consultation by pulmonology who recommended follow up chest CT in 2-3 months for evaluation of infiltrate. (4) Chronic renal failure, stage 3 (moderate): Code(s): N18.3 - Chronic kidney disease, stage 3 (moderate) Status: Acute Assessment and Plan: Baseline creatinine is variable, ranging from 2.6-3.0. Renal function was consistent with her baseline. (5) HTN (hypertension): Qualifiers: Hypertension type: unspecified Qualified Code(s): I10 - Essential (primary) hypertension Code(s): I10 - Essential (primary) hypertension Status: Chronic Asse
[2021-02-16 10:00] VITALS: PULSE 93
== END 2021-02-16 12:10 | disposition home or self-care (01) | DRG 194 ==
LOC: ANHED 22:39 → ANH3MEDSUR 02-13 05:20 → ANHIMU 02-16 08:46 → ANH3MEDSUR 02-20 09:59 → ANHIMU 02-20 09:59
PROVIDERS: Nurse Practitioner; Physician Assistant; Admitting Provider Family Medicine; Emergency Provider Emergency Medicine; PCP Family Medicine; Visit Provider Family Medicine
DX: I13.0 Hypertensive heart and chronic kidney disease with heart failure and stage 1 through stage 4 chronic kidney disease, or unspecified chronic kidney disease (principal); E11.22 Type 2 diabetes mellitus with diabetic chronic kidney disease; I50.23 Acute on chronic systolic (congestive) heart failure; N18.30 Chronic kidney disease, stage 3 unspecified; Z20.822 Contact with and (suspected) exposure to COVID-19; I25.10 Atherosclerotic heart disease of native coronary artery without angina pectoris; I25.5 Ischemic cardiomyopathy; R82.90 Unspecified abnormal findings in urine; G47.33 Obstructive sleep apnea (adult) (pediatric); R93.89 Abnormal findings on diagnostic imaging of other specified body structures; E78.5 Hyperlipidemia, unspecified; K21.9 Gastro-esophageal reflux disease without esophagitis; E11.65 Type 2 diabetes mellitus with hyperglycemia; E11.42 Type 2 diabetes mellitus with diabetic polyneuropathy; E11.51 Type 2 diabetes mellitus with diabetic peripheral angiopathy without gangrene; F41.8 Other specified anxiety disorders; R74.01 Elevation of levels of liver transaminase levels; M25.551 Pain in right hip; Z91.81 History of falling; I25.2 Old myocardial infarction; Z79.4 Long term (current) use of insulin; Z79.899 Other long term (current) drug therapy; Z86.718 Personal history of other venous thrombosis and embolism; Z98.42 Cataract extraction status, left eye; Z98.41 Cataract extraction status, right eye; Z99.89 Dependence on other enabling machines and devices; Z91.11 Patient's noncompliance with dietary regimen; Z91.14 Patient's other noncompliance with medication regimen; Z95.5 Presence of coronary angioplasty implant and graft
CPT/HCPCS: 36415; 36600; 71045; 71046; 71250; 73502; 73552; 76705; 78580; 80053; 80074; 81001; 82805; 82948; 83690; 83735; 83880; 84443; 85025; 85027; 85380; 85610; 85730; 87040; 87086; 93005; 93306; 93970; 94002; 94660; 99285; A9270; A9540; C9803; J0131; J0780; J1250; J1815; J1940; J1956; J2060; J2405; J2765; U0003; U0005